=== PATIENT | male | born 1955 | race Caucasian/White ===

== ENCOUNTER → 2021-04-13 08:20 | Outpatient (BNV) | payer MEDICARE, MEDICAID, SELFPAY | PROVIDERS: PCP Internal Medicine; Visit Provider Internal Medicine | DX: E83.110 Hereditary hemochromatosis (principal) | CPT/HCPCS: 99213; 99214; G2211 ==

== ENCOUNTER 2021-09-04 13:59 | Outpatient (REF) | payer MEDICARE, SELFPAY ==
--- NOTE | ~2021-09-04 | XR_ITS ---
EXAMINATION: XR CHEST CLINICAL INFORMATION: Chronic obstructive pulmonary disease. COMPARISON: CT 11/02/2016 TECHNIQUE: 2 views of the chest were obtained. FINDINGS: Hyperexpanded lungs. Patchy opacities throughout the lungs, right greater than left. No pleural effusion or pneumothorax. The cardiomediastinal silhouette is normal in size. No acute osseous abnormality. XR/XR chest 2V IMPRESSION: Hyperexpanded lungs, consistent with known emphysema.. Patchy bilateral opacities could be infectious or inflammatory.
[2021-09-04 16:28] LABS: MANUAL DIFF FLAG NO
[2021-09-04 16:33] LABS: Basophils Percent Auto 0.4 % (0-2); Eosinophils Absolute Auto 0.2 X10*3/uL (0.0-0.4); Hematocrit 39.2 % (42.0-52.0); Hemoglobin 12.8 g/dl (14.0-18.0); Imm Gran Abs Auto 0.01 X10*3/uL (0.00-0.03); Imm Gran Pct Auto 0.2 % (0.0-0.4); Lymphocytes Absolute Auto 1.8 X10*3/uL (1.2-4.9); Lymphocytes Percent Auto 35.5 % (20-40); Mean Corpuscular HGB Conc 32.7 g/dl (31.0-36.0); Mean Corpuscular Hemoglobin 32.2 pg (27.0-33.0); Mean Corpuscular Volume 98.5 fL (80.0-98.0); Mean Platelet Volume 9.8 fL (9.4-12.4); Monocytes Absolute Auto 0.9 X10*3/uL (0.1-1.2); Monocytes Percent Auto 17.4 % (2-11); Neutrophils Absolute Auto 2.2 x10*3/uL (2.0-8.3); Neutrophils Percent Auto 43.5 % (45-73); Platelet Count 334 X10*3/uL (160-400); Red Blood Count 3.98 X10*6/uL (4.60-5.80); Red Cell Distribution Width 15.5 % (11.0-16.0)
[2021-09-04 16:47] LABS: Alanine Aminotransferase 20 U/L (0-40); Albumin Level 3.7 g/dL (3.5-5.0); Alkaline Phosphatase 109 U/L (39-117); Anion Gap 7 (12-20); Aspartate Amino Transferase 23 U/L (5-37); Bilirubin Total 0.6 mg/dL (0.0-1.0); Blood Urea Nitrogen 9 mg/dL (9-16); Calcium 9.2 mg/dL (8.4-10.2); Carbon Dioxide 29 mmol/L (22-29); Chloride 109 mmol/L (96-108); Cholesterol 146 mg/dL; Estimated Glomerular Filt Rate > 60; Glucose Random 92 mg/dL (60-115); HDL Cholesterol 39 mg/dL; LDL Cholesterol Calculated 91 mg/dl; Potassium 4.2 mmol/L (3.3-5.1); Sodium 141 mmol/L (135-145); Total Protein 6.8 g/dL (6.5-8.0); Triglycerides 83 mg/dL
[2021-09-04 17:06] LABS: Ferritin 490 ng/mL (20-250)
== END 2021-09-04 14:00 | disposition home or self-care (01) ==
LOC: HO.HMGCX 13:59
PROVIDERS: Visit Provider Internal Medicine
DX: J44.9 Chronic obstructive pulmonary disease, unspecified (principal); U09.9 Post COVID-19 condition, unspecified
CPT/HCPCS: 36415; 71046; 80053; 80061; 82728; 85025

== ENCOUNTER 2021-10-07 12:48 | Outpatient (REF) | payer MEDICARE, SELFPAY ==
--- NOTE | ~2021-10-07 | XR_ITS ---
EXAMINATION: XR CHEST CLINICAL INFORMATION: Post Covid 19 infection. Cough COMPARISON: 09/04/2021 TECHNIQUE: 2 views of the chest were obtained. FINDINGS: Slight interval increase in the patchy reticulated airspace opacities seen bilaterally and diffusely. No new or developing pulmonary mass or consolidation. Heart size is normal. No acute osseous abnormality. Degenerative changes of the spine. XR/XR chest 2V IMPRESSION: Persistent but improving reticulated and patchy airspace opacities.
== END 2021-10-07 12:49 | disposition home or self-care (01) ==
LOC: HO.XRAY 12:48
PROVIDERS: PCP Internal Medicine; Visit Provider Internal Medicine
DX: J44.9 Chronic obstructive pulmonary disease, unspecified (principal); U09.9 Post COVID-19 condition, unspecified
CPT/HCPCS: 71046; 99202

== ENCOUNTER → 2021-12-01 08:50 | Outpatient (BNVA) | payer BC, SELFPAY | PROVIDERS: PCP Internal Medicine; Visit Provider Internal Medicine | DX: J44.9 Chronic obstructive pulmonary disease, unspecified (principal) ==

== ENCOUNTER → 2022-05-26 14:29 | Outpatient (BNVA) | payer MEDICARE, MEDICAID, SELFPAY | PROVIDERS: PCP Internal Medicine; Visit Provider Internal Medicine | DX: J44.9 Chronic obstructive pulmonary disease, unspecified (principal) | CPT/HCPCS: 99212 ==

== ENCOUNTER → 2022-11-24 08:17 | Outpatient (BNVA) | payer MEDICARE, MEDICAID, SELFPAY | PROVIDERS: PCP Internal Medicine; Visit Provider Internal Medicine | DX: J44.9 Chronic obstructive pulmonary disease, unspecified (principal) | CPT/HCPCS: 94010; 99212 ==

== ENCOUNTER → 2022-12-27 08:18 | Outpatient (BNVA) | payer MEDICARE, MEDICAID, SELFPAY | PROVIDERS: PCP Internal Medicine; Visit Provider Nurse Practitioner Family | DX: N40.0 Benign prostatic hyperplasia without lower urinary tract symptoms (principal); N52.9 Male erectile dysfunction, unspecified; R39.12 Poor urinary stream | CPT/HCPCS: 51798; 99202 ==

== ENCOUNTER 2023-01-06 13:42 | Outpatient (REF) | payer MEDICARE, MEDICAID, SELFPAY | END 2023-01-06 13:43 | disposition home or self-care (01) | LOC: HO.BBR 13:42 | PROVIDERS: Visit Provider Internal Medicine | DX: Z13.89 Encounter for screening for other disorder (principal) ==

== ENCOUNTER 2023-01-31 08:44 | Outpatient (REF) | payer MEDICARE, MEDICAID, SELFPAY ==
--- NOTE | ~2023-01-31 | US_ITS ---
EXAMINATION: US RETROPERITONEAL COMPLETE (RENAL) CLINICAL INFORMATION: Benign prostatic hyperplasia without lower urinary tract symptoms. COMPARISON: US pelvis limited (bladder) 07/12/2019. Ultrasound abdomen complete 03/26/2019. TECHNIQUE: Real-time imaging of the kidneys and bladder. FINDINGS: RIGHT KIDNEY: 11.6 x 5.9 x 6.3 cm (SAG x AP x TRV). The kidney is normal in size, contour, and echogenicity. Renal cortical thickness is normal. No renal calculi or hydronephrosis. Multiple peripelvic cysts, largest measuring 1.7 cm in the midpole. No imaging follow-up recommended. LEFT KIDNEY: 12.1 x 5.0 x 5.2 cm (SAG x AP x TRV). The kidney is normal in size, contour, and echogenicity. Renal cortical thickness is normal. No renal calculi or hydronephrosis. Multiple peripelvic cysts. No imaging follow-up recommended. Fullness of the left renal pelvis versus extrarenal pelvis. BLADDER: Well distended and normal. Bilateral ureteral jets are demonstrated. Prevoid bladder volume is 447 mL. Postvoid bladder volume is 163 mL. ADDITIONAL FINDINGS: Prostate gland is normal in size measuring 4.2 x 3.3 x 2.7 cm, volume 19 mL. Central prostate gland calcifications. US/US retroperitoneal comp IMPRESSION: Bilateral peripelvic cysts. Large 163 mL post void bladder residual. Normal size prostate gland..
== END 2023-01-31 08:45 | disposition home or self-care (01) ==
LOC: HO.HMGCX 08:44
PROVIDERS: PCP Internal Medicine; Visit Provider Nurse Practitioner Family
DX: N40.0 Benign prostatic hyperplasia without lower urinary tract symptoms (principal); R39.12 Poor urinary stream; N52.9 Male erectile dysfunction, unspecified
CPT/HCPCS: 76770

== ENCOUNTER 2023-02-04 07:48 | Outpatient (REF) | payer MEDICARE, MEDICAID, SELFPAY ==
[2023-02-04 14:40] LABS: Prostate Specific Antigen 0.14 ng/mL (<0.05-4.0)
== END 2023-02-04 07:49 | disposition home or self-care (01) ==
LOC: HO.HMGCLDS 07:48
PROVIDERS: PCP Internal Medicine; Visit Provider Nurse Practitioner Family
DX: Z12.5 Encounter for screening for malignant neoplasm of prostate (principal); N40.0 Benign prostatic hyperplasia without lower urinary tract symptoms
CPT/HCPCS: 36415; 84153

== ENCOUNTER 2023-02-07 08:01 | Outpatient (AMB) | payer MEDICARE, MEDICAID, SELFPAY ==
--- NOTE | 2023-02-07 08:10 | A.OFFVIS_ITS ---
Intake Intake Visit Reasons: BPH- follow up/US/PSA Intake Note: Patient presents for follow up BPH/labs/ultrasound (imaging 01/31) (psa 0.14) Urology Medications: d/c tamsulosin, finasteride, tadalafil Blood Thinner: none PVR: 44ml's Lead Programmer Analyst Required: No Accompanied by: Self / Same As Patient Allergies DRYER SHEETS Allergy (Intermediate, Uncoded 02/07/23 08:52) HIVES Medication List - Last Reconciled 02/07/23 by NI Childers-BRITANY albuterol sulfate 90 mcg/actuation (ProAir HFA) 1 inh inhalation QID PRN 30 days budesonide-formoterol 160-4.5 mcg/actuation 1 inh inhalation BID cholecalciferol (vitamin D3) 50 mcg PO DAILY finasteride 5 mg PO .MWF 90 days ipratropium bromide 17 mcg/actuation 1 puff inhalation QID magnesium oxide 400 mg PO DAILY Symbicort 160-4.5 mcg/actuation (budesonide-formoterol) 2 puffs inhalation BID 30 days NS tadalafil (Cialis) 5 mg PO DAILY 90 days HPI HPI Comments History of Present Illness Details Erick Fields is a very pleasant 68-year-old male patient of Dr. Sue. He has a PMH of COPD and hemochromatosis.He presents to the office today for follow-up. Of note, patient was seen approximately 6 weeks ago as a new patient for ongoing urological issues at which time a retroperitoneal ultrasound was ordered, PSA, and the patient was started on Cialis 5 mg daily. Patient previously on Flomax 0.4 mg daily however did not find this affective for his urinary issues thus Cialis 5mg daily was trialed. Recent retroperitoneal ultrasound results reviewed with the patient today. Right kidney with no calculi or hydronephrosis. Multiple peripelvic cysts largest measuring 1.7 cm in the mid pole. No imaging follow-up is recommended per radiology report. Left kidney with no calculi or hydronephrosis. Multiple peripelvic cysts. No imaging follow-up is recommended per radiology report. The bladder is well distended and normal. Pre void bladder volume is approximately 450 mL. Postvoid bladder volume is approximately 160 mL. Prostate volume is approximately 20 mL. PSA 02/06--0.1. When asked patient reports somewhat improvement in urinary symptoms on 5 mg of Cialis daily. However he does continue to report weak urinary stream. He otherwise denies denies urinary urgency, urinary frequency, incontinence, nocturia, hematuria, dysuria, foul smelling urine, flank pain, fever, and or chills. In office urinalysis results reviewed with the patient today. PVR 44 mL. Discussed at length importance of adequate sleep, daily exercise (brisk walking), and healthy eating habits to improve erectile dysfunction symptoms as well as for overall health and well-being. Discussed possible near future in office cystoscopy if symptoms persist and/or worsen. Patient otherwise offers no issues or concerns at this time. [facility] Medical History Hereditary hemochromatosis Surgical History No pertinent past surgical history Social History Household Members: Significant Other Housing: Other (mobile home) Housing Other:: trailor Are you a primary child day care teacher to a significant other at home: No Alcohol intake: never Patient Tobacco Use Status: Former Tobacco user Tobacco use type: Cigarette e-Cigarette/Vaping Use: Never Used service: No Current occupational status: retired Cognitive needs: No Hearing needs: Yes Vision needs: Yes Review of Systems Const Other Reports as per HPI Eyes Reports no additional complaints ENT Reports no additional complaints Card Reports no additional complaints Resp Reports as per HPI GI Reports no additional complaints Reports as per HPI Musc Reports no additional complaints Neuro Reports no additional complaints Psych Reports no additional complaints Endo Reports no additional complaints Kirit/Lymph Reports as per HPI Aller/Immun Reports no additional complaints Physical Exam Const General: cooperative, healthy appearing, comfortable, no acute distress, well developed, alert and awake Orientation/consciousness: patient oriented x3 Limitations: no limitations HEENT Head: Yes normal to inspection, Yes normocephalic and Yes atraumatic Ears: hearing grossly normal bilaterally (bilateral hearing aids present ) Eyes General: appearance normal, both eyes and all related structures Neck Neck: Yes normal visual inspection and Yes trachea midline Chest Chest palpation & inspection: normal inspection of the chest Resp Effort & Inspection: normal respiratory effort and able to speak in complete sentences Cardio Rate: regular rate GI Inspection: Yes normal to inspection General: Yes no CVA tenderness Back/Spine/Pelvis Back: no CVA tenderness Skin General skin exam: no rashes or lesions noted Neuro General: patient oriented x3 Extrem General: Yes normal to inspection Psych Appearance: grossly normal and well kempt Mental Status: mental status grossly normal Speech and movement: Normal speech and movement present and Clear speech present Affect: normal affect Attitude: cooperative Thought process: Normal thought process present Thought content: Normal thought content present Insight: Fair insight present (Psych) Judgement: Fair judgement present (Psych) Office Procedures Post Void Residual Post Residual Void Post Void Residual (PVR): 44 [id number] Void Residual by ultrasound Results AMB Urinalysis, Automated UA Leukoctes 0 Chente/uL Last Edit by Bebe Lopezbro on 02/07/23 08:20 UA Nitrite Last Edit by [employer] Lopezbro on 02/07/23 08:20 UA Urobilinogen 0.2 mg/dL Last Edit by [employer] Jessicabro on 02/07/23 08:20 UA Protein 0 mg/dL Last Edit by [employer] Lopez on 02/07/23 08:20 UA pH 6.0 Last Edit by [employer] Jessicabro on 02/07/23 08:20 UA Blood 0 Porter/uL Last Edit by [employer] Jessicabro on 02/07/23 08:[address] [place] [address] 1.020 Last Edit by [employer] Jess[employer]abro on 02/07/23 08:20 UA Ketone Last Edit by [employer] Jessica on 02/07/23 08:20 UA Bilirubin 0 mg/dL Last Edit by [employer] Lopezbro on 02/07/23 08:20 UA Glucose 0 mg/dL Last Edit by [employer] on 02/07/23 08:20 Results Reviewed Results Reviewed: Laboratory Last Values Urine pH (Auto) 6.0 02/07/23 08:[address] [place] (Auto) 1.020 02/07/23 08:13 Urine Protein (Auto) 0 mg/dL 02/07/23 08:13 Glucose (UA)(Auto) 0 mg/dL 02/07/23 08:13 Urine Blood (Auto) 0 Porter/uL 02/07/23 08:13 Urine Bilirubin (Auto) 0 mg/dL 02/07/23 08:13 Urine Urobilinogen (Auto) 0.2 mg/dL 02/07/23 08:13 Leukocyte Esterase (Auto) 0 Chente/uL 02/07/23 08:13 Date of Service: 01/31/23 EXAMINATION: US RETROPERITONEAL COMPLETE (RENAL) FINDINGS: RIGHT KIDNEY: 11.6 x 5.9 x 6.3 cm (SAG x AP x TRV). The kidney is normal in size, contour, and echogenicity. Renal cortical thickness is normal. No renal calculi or hydronephrosis. Multiple peripelvic cysts, largest measuring 1.7 cm in the midpole. No imaging follow-up recommended. LEFT KIDNEY: 12.1 x 5.0 x 5.2 cm (SAG x AP x TRV). The kidney is normal in size, contour, and echogenicity. Renal cortical thickness is normal. No renal calculi or hydronephrosis. Multiple peripelvic cysts. No imaging follow-up recommended. Fullness of the left renal pelvis versus extrarenal pelvis. BLADDER: Well distended and normal. Bilateral ureteral jets are demonstrated. Prevoid bladder volume is 447 mL. Postvoid bladder volume is 163 mL. ADDITIONAL FINDINGS: Prostate gland is normal in size measuring 4.2 x 3.3 x 2.7 cm, volume 19 mL. Central prostate gland calcifications. IMPRESSION: Bilateral peripelvic cysts. Large 163 mL post void bladder residual. Normal size prostate gland.. Assessment & Plan Assessment & Plan (1) Erectile dysfunction: Code(s): N52.9 - Male erectile dysfunction, unspecified (2) Weak urinary stream: Code(s): R39.12 - Poor urinary stream (3) Parapelvic renal cyst: Code(s): N28.1 - Cyst of kidney, acquired Plan In office urinalysis results reviewed with the patient today; as noted above. PVR 44ml's. Recent PSA results reviewed with the patient today; as noted above. Recent retroperitoneal ultrasound results reviewed with the patient today; as noted above. Continue Cialis 5 mg daily as patient reports somewhat improvement in urinary symptoms on this medication. Continue finasteride Tuesday as discussed and prescribed. Discussed near future in office cystoscopy for further assessment evaluation Follow-up in 3 months; if not sooner with any issues, concerns, and or questions. Orders: Orders AMB Urinalysis Automated Today Z13.9 - Encounter for screening, unspecified AMB Post Void Residual by ultrasound Today R39.12 - Poor urinary stream Patient Instructions: The patient had an opportunity to ask questions regarding the treatment plan. All questions were answered. Physical exam, labs, and imaging were discussed and reviewed in detail. As well as risks, benefits, and discussion of treatment choices. No major barriers to understanding were identified. The patient expressed understanding and agreement with the above treatment plan. The patient was made aware they should contact our office by phone for worsening of their current condition, the appearance of new symptoms, or with any questions or concerns. Compliance is encouraged with any medications and follow up testing that is ordered. It is a privilege to be allowed the opportunity to participate in? your urological care.? Again, if you have any questions or concerns If you have any questions or concerns please do not hesitate to contact me. The office is [phone]. This note is constructed using voice recognition software. While every effort has been made to ensure accuracy pastoral ministries professor errors may have been included. Yours sincerely, RENATE Childers Coding Level of Care Code Est Pt Level 3 (78110) Diagnoses Erectile dysfunction N52.9 Weak urinary stream R39.12 Parapelvic renal cyst N28.1 CPT Codes Post Residual Void - PVR CPT Code: 44827-Kpgj Void Residual by ultrasound ([id number])
== END 2023-02-07 09:13 | disposition home or self-care (01) ==
PROVIDERS: PCP Internal Medicine; Visit Provider Nurse Practitioner Family
DX: N52.9 Male erectile dysfunction, unspecified (principal); R39.12 Poor urinary stream; N28.1 Cyst of kidney, acquired
CPT/HCPCS: 99213

== ENCOUNTER → 2023-02-07 08:01 | Outpatient (BNVA) | payer MEDICARE, MEDICAID, SELFPAY | PROVIDERS: PCP Internal Medicine; Visit Provider Nurse Practitioner Family | DX: N52.9 Male erectile dysfunction, unspecified (principal); N28.1 Cyst of kidney, acquired; R39.12 Poor urinary stream | CPT/HCPCS: 51798; 99212 ==

== ENCOUNTER 2023-02-22 14:31 | Outpatient (AMB) | payer MEDICARE, MEDICAID, SELFPAY ==
[2023-02-22 14:34] VITALS: BP 130/74; PULSE 63; O2SAT 96; BMI 24.3
--- NOTE | 2023-02-22 14:34 | MHC.PC.OV ---
Vital Signs 02/22/23 14:34 Height 5 ft 11 in Weight 174 lb 2 oz BMI 24.3 BP 130/74 Blood Pressure Location Rt brachial Position Sitting Pulse 63 Pulse Source Pulse Oximeter Pulse Oximetry (%) 96 Oxygen Delivery Method Room Air Intake Visit Reasons: follow up on medical issues Allergies DRYER SHEETS Allergy (Intermediate, Uncoded 02/07/23 08:52) HIVES Medication List - Last Reconciled 02/22/23 by Mikael Sue MD albuterol sulfate 90 mcg/actuation (ProAir HFA) 1 inh inhalation QID PRN 30 days budesonide-formoterol 160-4.5 mcg/actuation 1 inh inhalation BID cholecalciferol (vitamin D3) 50 mcg PO DAILY finasteride 5 mg PO .MWF 90 days ipratropium bromide 17 mcg/actuation 1 puff inhalation QID magnesium oxide 400 mg PO DAILY naproxen 500 mg PO BID PRN 30 days Symbicort 160-4.5 mcg/actuation (budesonide-formoterol) 2 puffs inhalation BID 30 days NS tadalafil (Cialis) 5 mg PO DAILY 90 days Tobacco use date assessed: 02/22/23 Fall risk assessment: No Falls in past year Last assessed Fall Risk: 02/22/23 Dental Screening Dental Screen Date: 02/22/23 Did you have a dental visit in the last 12 months?: No Did you have a dental problem in the last 6 months where you did not have access to dental care?: No Was dental information given to patient?: No HPI follow up on medical issues HPI Details Patient is a 68-year-old gentlemen who is taking no medication from this office came in today for an acute problem Complaining of pain left hip for the past 1 month, patient says that usually when he takes ibuprofen his pain goes away but lately it has not been getting better. On examination he has slight limitation in left hip range of motion. I have ordered x-ray of his left hip And sent Aleve 500 mg b.i.d. with food as needed. Patient is to update me in a week if he is still in pain he will be seeing mobile marketing specialist. Medication list reviewed patient is seen urologist and Dr. Wilder [facility] Medical History Hereditary hemochromatosis Surgical History No pertinent past surgical history Social History Household Members: Significant Other Housing: Other (mobile home) Housing Other:: trailor Are you a primary administrator health care facility to a significant other at home: No Alcohol intake: never Patient Tobacco Use Status: Former Tobacco user Tobacco use type: Cigarette e-Cigarette/Vaping Use: Never Used service: No Current occupational status: retired Cognitive needs: No Hearing needs: Yes Vision needs: Yes Questionnaire PHQ-9 Over the last 2 weeks, how often have you been bothered by any of the following problems? 67004 - PHQ-9 Billing: Patient declined-do not bill Source: Developed by Drs. Ck Martinez, Juju Murray, Juancho Guzman and colleagues, with an educational yenny from [employer]. Thrive Questionnaire Date Thrive assessed: 03/13/21 AUDIT C Alcohol Use Questionnaire (AUDIT-C) 1. How often do you have a drink containing alcohol?: Never 3. How often do you have six or more drinks on one occasion?: Never Total Score: 0 Score Reviewed/Action Taken: Yes Review of Systems Const Denies chills and Denies fever(s) ENT Denies epistaxis and Denies nasal discharge Card Denies chest pain Resp Denies chest congestion, Denies cough and Denies hemoptysis GI Denies diarrhea and Denies nausea Skin/Breast Denies rash Neuro Reports no additional complaints Psych Reports no additional complaints Endo Reports no additional complaints Physical exam (Primary Care) Vital Signs: Last Vital Signs Pulse 63 02/22/23 14:34 BP 130/74 02/22/23 14:34 Pulse Ox 96 02/22/23 14:34 Oxygen Delivery Method Room Air 02/22/23 14:34 BMI result Body Mass Index 24.3 Tobacco/Smoking Status: Tobacco use Status Tobacco use date assessed 02/22/23 02/22/23 14:37 Patient Tobacco Use Status Former Tobacco user 02/22/23 14:37 Tobacco use type Cigarette 02/22/23 14:37 e-Cigarette/Vaping Use Never Used 02/22/23 14:37 Thrive Assessment: Date of Thrive Assessment Date Thrive assessed 03/13/21 02/22/23 14:37 Const General: cooperative, comfortable and no acute distress Orientation/consciousness: patient oriented x3 HENMT Head: Yes normocephalic Eyes General: appearance normal, both eyes and all related structures Neck Neck: Yes supple Resp Effort & Inspection: normal respiratory effort, no cough and no stridor Cardio Rhythm: regular rhythm Heart sounds: S1 normal heart sound present and S2 normal heart sound present Skin General skin exam: turgor normal Neuro General: patient oriented x3, tone normal and moves all extremities Extrem Other: Slight limitation range of motion left hip because of pain Right lower extremity: no edema Left lower extremity: no edema Assessment and Plan Assessment & Plan (1) Hip pain, left: Code(s): M25.552 - Pain in left hip Plan Patient is a 68-year-old gentlemen who is taking no medication from this office came in today for an acute problem Complaining of pain left hip for the past 1 month, patient says that usually when he takes ibuprofen his pain goes away but lately it has not been getting better. On examination he has slight limitation in left hip range of motion. I have ordered x-ray of his left hip And sent Aleve 500 mg b.i.d. with food as needed. Patient is to update me in a week if he is still in pain he will be seeing mobile marketing specialist. Medication list reviewed patient is seen urologist and Dr. Wilder Orders: Orders XR hip LT min 2V Today M25.552 - Pain in left hip Medications: New naproxen Take it with food 12 hours apart as needed for hip pain 500 mg PO BID PRN 60 tabs 0RF pain 30 days Coding Level of Care Code Est Pt Level 3 (55711) Diagnoses Hip pain, left M25.552
== END 2023-02-22 15:13 | disposition home or self-care (01) ==
PROVIDERS: PCP Internal Medicine; Visit Provider Internal Medicine
DX: M25.552 Pain in left hip (principal)
CPT/HCPCS: 99213

== ENCOUNTER 2023-02-22 15:04 | Outpatient (REF) | payer MEDICARE, MEDICAID, SELFPAY ==
--- NOTE | ~2023-02-22 | XR_ITS ---
EXAMINATION: XR HIP, LEFT CLINICAL INFORMATION: Pain left hip COMPARISON: None available. TECHNIQUE: Two views of the left hip. FINDINGS: Minimal loss of left hip joint space is seen with no bony erosive changes, loose bodies are osteophytes. The soft tissues are normal. XR/XR hip LT min 2V IMPRESSION: Unremarkable left hip exam.
== END 2023-02-22 15:05 | disposition home or self-care (01) ==
LOC: HO.HMGCX 15:04
PROVIDERS: PCP Internal Medicine; Visit Provider Internal Medicine
DX: M25.552 Pain in left hip (principal)
CPT/HCPCS: 73502

== ENCOUNTER 2023-03-08 07:59 | Outpatient (REF) | payer MEDICARE, MEDICAID, SELFPAY | END 2023-03-08 08:00 | disposition home or self-care (01) | LOC: HO.BBR 07:59 | PROVIDERS: PCP Internal Medicine; Visit Provider Internal Medicine | DX: Z13.89 Encounter for screening for other disorder (principal) ==

== ENCOUNTER 2023-05-03 08:11 | Outpatient (AMB) | payer MEDICARE, MEDICAID, SELFPAY ==
--- NOTE | 2023-05-03 08:13 | A.OFFVIS_ITS ---
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 Required: No Accompanied by: Self / Same As Patient Allergies DRYER SHEETS Allergy (Intermediate, Uncoded 05/03/23 09:05) HIVES Medication List - Last Reconciled 05/03/23 by INEZ ChildersP- albuterol sulfate 90 mcg/actuation (ProAir HFA) 1 inh inhalation QID PRN 30 days alfuzosin ER 10 mg PO BEDTIME 30 days budesonide-formoterol 160-4.5 mcg/actuation 1 inh inhalation BID cholecalciferol (vitamin D3) 50 mcg PO DAILY finasteride 5 mg PO .MWF 90 days ipratropium bromide 17 mcg/actuation 1 puff inhalation QID magnesium oxide 400 mg PO DAILY naproxen 500 mg PO BID PRN 30 days Symbicort 160-4.5 mcg/actuation (budesonide-formoterol) 2 puffs inhalation BID 30 days NS HPI HPI Comments History of Present Illness Details Erick Fields is a very pleasant 68-year-old male patient of Dr. Sue. He has a PMH of COPD and hemochromatosis.He presents to the office today for follow-up. Of note, patient was seen approximately 3 months ago weeks ago as a new patient for ongoing urological issues at which time a retroperitoneal ultrasound was ordered, PSA, and the patient was started on Cat which time his flomax was discontinued and the patient was started on low dose Cialis 5 mg daily. In discussion with the patient today he reports to be doing and feeling well. He reports feeling well via a Urology standpoint just feels he continues with weak urianry stream. He also reports retrograde ejaculation. He otherwise denies urinary urgency, urinary frequency, incontinence, nocturia, hematuria, dysuria, foul smelling urine, changes to urinary stream, flank pain, fever, and or chills. Previous workup has included a retroperitoneal ultrasound noting right kidney with no calculi or hydronephrosis. Multiple peripelvic cysts largest measuring 1.7 cm in the mid pole. No imaging follow-up is recommended per radiology report. Left kidney with no calculi or hydronephrosis. Multiple peripelvic cysts. No imaging follow-up is recommended per radiology report. The bladder is well distended and normal. Pre void bladder volume is approximately 450 mL. Postvoid bladder volume is approximately 160 mL. Prostate volume is approximately 20 mL. PSA 02/06--0.1. In office urinalysis results reviewed with the patient today. PVR 40 mL. Discussed trial if Alfuzosin. Discussed possible near future in office cystoscopy if symptoms persist and/or worsen. Patient otherwise offers no issues or concerns at this time. [facility] Medical History Hereditary hemochromatosis Surgical History No pertinent past surgical history Social History Household Members: Significant Other Housing: Other (mobile home) Housing Other:: trailor Are you a primary respiratory care specialist to a significant other at home: No Alcohol intake: never Patient Tobacco Use Status: Former Tobacco user Tobacco use type: Cigarette e-Cigarette/Vaping Use: Never Used service: No Current occupational status: retired Cognitive needs: No Hearing needs: Yes Vision needs: Yes Review of Systems Const Other Reports as per HPI Eyes Reports no additional complaints ENT Reports no additional complaints Card Reports no additional complaints Resp Reports as per HPI GI Reports no additional complaints Reports as per HPI Musc Reports no additional complaints Neuro Reports no additional complaints Psych Reports no additional complaints Endo Reports no additional complaints Kirit/Lymph Reports as per HPI Aller/Immun Reports no additional complaints Physical Exam Const General: cooperative, healthy appearing, comfortable, no acute distress, well developed, alert and awake Orientation/consciousness: patient oriented x3 Limitations: no limitations HEENT Head: Yes normal to inspection, Yes normocephalic and Yes atraumatic Ears: hearing grossly normal bilaterally (bilateral hearing aids present ) Eyes General: appearance normal, both eyes and all related structures Neck Neck: Yes normal visual inspection and Yes trachea midline Chest Chest palpation & inspection: normal inspection of the chest Resp Effort & Inspection: normal respiratory effort and able to speak in complete sentences Cardio Rate: regular rate GI Inspection: Yes normal to inspection General: Yes no CVA tenderness Back/Spine/Pelvis Back: no CVA tenderness Skin General skin exam: no rashes or lesions noted Neuro General: patient oriented x3 Extrem General: Yes normal to inspection Psych Appearance: grossly normal and well kempt Mental Status: mental status grossly normal Speech and movement: Normal speech and movement present and Clear speech present Affect: normal affect Attitude: cooperative Thought process: Normal thought process present Thought content: Normal thought content present Insight: Fair insight present (Psych) Judgement: Fair judgement present (Psych) Office Procedures Post Void Residual Post Residual Void Post Void Residual (PVR): 40 86075-Whbr Void Residual by ultrasound Results AMB Urinalysis, Automated UA Leukoctes 0 Chente/uL Last Edit by Pocket Change on 05/03/23 08:42 UA Nitrite Negative Last Edit by Pocket Change on 05/03/23 08:42 UA Urobilinogen 0.2 mg/dL Last Edit by Pocket Change on 05/03/23 08:42 UA Protein 0 mg/dL Last Edit by Pocket Change on 05/03/23 08:42 UA pH 6.0 Last Edit by Pocket Change on 05/03/23 08:42 UA Blood 0 Porter/uL Last Edit by Pocket Change on 05/03/23 08:42 UA Specific [place] 1.010 Last Edit by Pocket Change on 05/03/23 08:42 UA Ketone Negative Last Edit by Pocket Change on 05/03/23 08:42 UA Bilirubin 0 mg/dL Last Edit by Pocket Change on 05/03/23 08:42 UA Glucose 0 mg/dL Last Edit by Pocket Change on 05/03/23 08:42 Results Reviewed Results Reviewed: Laboratory Last Values Urine pH (Auto) 6.0 05/03/23 08:27 Specific [place] (Auto) 1.010 05/03/23 08:27 Urine Protein (Auto) 0 mg/dL 05/03/23 08:27 Glucose (UA)(Auto) 0 mg/dL 05/03/23 08:27 Urine Ketones (Auto) Negative 05/03/23 08:27 Urine Blood (Auto) 0 Porter/uL 05/03/23 08:27 Urine Nitrite (Auto) Negative 05/03/23 08:27 Urine Bilirubin (Auto) 0 mg/dL 05/03/23 08:27 Urine Urobilinogen (Auto) 0.2 mg/dL 05/03/23 08:27 Leukocyte Esterase (Auto) 0 Chente/uL 05/03/23 08:27 Assessment & Plan Assessment & Plan (1) Weak urinary stream: Code(s): R39.12 - Poor urinary stream (2) Retrograde ejaculation: Code(s): N53.14 - Retrograde ejaculation Plan In office urinalysis results reviewed with the patient today; as noted above. PVR 40 mL. Stop Cialis Start alfuzosin 10 mg daily as discussed and prescribed. Patient reporting weak urinary stream and retrograde ejaculation Discussed discontinuation of finasteride given low PSA and retroperitoneal ultrasound showing approximately 20 mL prostate volume; however patient wishes to continue with finasteride Tuesday Discussed possible near future in office cystoscopy if symptoms persist Follow up in 6-8 weeks with PVR; or sooner with any issues, concerns, and or questions. Orders: Orders AMB Urinalysis Automated Today Z13.9 - Encounter for screening, unspecified AMB Post Void Residual by ultrasound Today R39.12 - Poor urinary stream Medications: New alfuzosin ER Take before bedtime 10 mg PO BEDTIME 30 days 30 tabs 1RF N32.0 - Bladder- neck obstruction, N40.1 - Benign prostatic hyperplasia with lower urinary tract symptoms, R33.9 - Retention of urine, unspecified, R35.1 - Nocturia, R39.12 - Poor urinary stream Discontinued tadalafil (Cialis) [facility] [address] [id number] Discontinued Reason: Doctor's Order 5 mg PO DAILY 90 days 90 tabs 0RF Coding Level of Care Code Est Pt Level 4 (71963) Diagnoses Weak urinary stream R39.12 Retrograde ejaculation N53.14 CPT Codes Post Residual Void - PVR CPT Code: 61193-Dsfb Void Residual by ultrasound ([id number])
== END 2023-05-03 09:04 | disposition home or self-care (01) ==
PROVIDERS: PCP Internal Medicine; Visit Provider Nurse Practitioner Family
DX: R39.12 Poor urinary stream (principal); N53.14 Retrograde ejaculation; Z13.9 Encounter for screening, unspecified
CPT/HCPCS: 99214

== ENCOUNTER → 2023-05-03 08:11 | Outpatient (BNVA) | payer MEDICARE, MEDICAID, SELFPAY | PROVIDERS: PCP Internal Medicine; Visit Provider Nurse Practitioner Family | DX: R39.12 Poor urinary stream (principal); N53.14 Retrograde ejaculation | CPT/HCPCS: 51798; 81003; 99212 ==

== ENCOUNTER 2023-05-10 07:40 | Outpatient (REF) | payer MEDICARE, MEDICAID, SELFPAY | END 2023-05-10 07:41 | disposition home or self-care (01) | LOC: HO.BBR 07:40 | PROVIDERS: PCP Internal Medicine; Visit Provider Internal Medicine | DX: Z13.89 Encounter for screening for other disorder (principal) ==

== ENCOUNTER 2023-06-06 08:44 | Outpatient (AMB) | payer MEDICARE, MEDICAID, SELFPAY ==
--- NOTE | 2023-06-06 09:06 | A.OFFVIS_ITS ---
Intake Vital Signs 06/06/23 09:07 Height 5 ft 11 in Weight 176 lb BMI 24.5 BP 120/60 Blood Pressure Location Lt brachial Position Sitting Pulse 63 Pulse Source Pulse Oximeter Pulse Oximetry (%) 100 Oxygen Delivery Method Room Air Intake Visit Reasons: COPD Intake Note: pt is here for follow up and states his breathing is okay but only flare up with some mornings with some phelgm., He does breath hard, does this hurt him? 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 Required: No Allergies DRYER SHEETS Allergy (Intermediate, Uncoded 06/06/23 09:18) HIVES Medication List - Last Reconciled 06/06/23 by Kyle Wilder MD albuterol sulfate 90 mcg/actuation (ProAir HFA) 1 inh inhalation QID PRN 30 days alfuzosin ER 10 mg PO BEDTIME 30 days budesonide-formoterol 160-4.5 mcg/actuation 1 inh inhalation BID cholecalciferol (vitamin D3) 50 mcg PO DAILY finasteride 5 mg PO .MWF 90 days magnesium oxide 400 mg PO DAILY naproxen 500 mg PO BID PRN 30 days Do you need a note to return to daycare/school/sports/work: No HPI COPD HPI Details 68 YEARS OLD GENTLEMAN A RETIRED BUT REM AINS PHYSICALLY ACTIVE, COMES FOR 6 MONTHS FOLLOW-UP. BREATHING HAS BEEN VERY STABLE EXCEPT FOR INTERMITTENT BOUTS OF COUGH IN THE MORNING HOURS, USUALLY IF HE HAS MISSED USING HIS INHALER THE NIGHT BEFORE. HE HAS HAD NO ACUTE EXACERBATIONS. HE CAN WALK AROUND AND EVEN CLIMB MOUNTAINS WITHOUT ANY UNUSUAL SHORTNESS OF BREATH. [facility] Medical History Hereditary hemochromatosis Surgical History No pertinent past surgical history Social History Household Members: Significant Other Housing: Other (mobile home) Housing Other:: trailor Are you a primary client care manager to a significant other at home: No Alcohol intake: never Patient Tobacco Use Status: Former Tobacco user Tobacco use type: Cigarette e-Cigarette/Vaping Use: Never Used service: No Current occupational status: retired Cognitive needs: No Hearing needs: Yes Vision needs: Yes Review of Systems Const All systems reviewed & are unremarkable except as noted in HPI and below Eyes Reports no additional complaints ENT Reports no additional complaints Card Denies chest pain, Denies irregular heart rhythm and Denies leg edema Resp Reports as per HPI GI Reports no additional complaints Reports other (Being treated for BPH) Musc Reports no additional complaints Skin/Breast Reports system reviewed and no additional complaints, except as documented Neuro Reports no additional complaints Psych Reports no additional complaints Physical Exam Vital Signs: Last Vital Signs Pulse 63 06/06/23 09:07 BP 120/60 06/06/23 09:07 Pulse Ox 100 06/06/23 09:07 Oxygen Delivery Method Room Air 06/06/23 09:07 BMI result Body Mass Index 24.5 Const General: healthy appearing (He is of a thin build, but looks physically active.), comfortable, no acute distress, alert and awake Orientation/consciousness: patient oriented x3 HEENT Head: Yes normal to inspection General nose exam: No nasal polyps present and No nasal discharge present Face and sinus: Yes sinuses nontender Mouth: oropharynx normal Throat: Yes posterior oropharynx normal Eyes General: appearance normal, both eyes and all related structures Neck Neck: Yes normal visual inspection, Yes no lymphadenopathy, Yes trachea midline and Yes JVD (Prominent right jugular vein when he is talking) Thyroid: Thyroid normal Chest Chest palpation & inspection: normal inspection of the chest, normal palpation of entire chest wall and no tenderness Resp Other: Percussion note hyper-resonant,. Breath sounds are distant on both sides with prolonged expiratory phase. No definite wheezes or crepitations heard. Cardio Palpation: normal PMI Rate: regular rate Rhythm: regular rhythm Heart sounds: no gallops and no murmurs Peripheral pulses: Peripheral pulses 2+ throughout GI Palpation (GI): Soft to palpation, nontender, No hepatosplenomegaly present and no masses Auscultation: normal bowel sounds Back/Spine/Pelvis Thoracic/Lumbar Spine: thoracic and lumbar spine normal to inspection Skin General skin exam: no rashes or lesions noted Neuro General: patient oriented x3 and no focal motor deficits Cranial nerves: Yes CN's II-XII intact bilaterally Extrem General: Yes normal to inspection, Yes no clubbing, cyanosis or edema and Yes no calf tenderness Psych Appearance: grossly normal and well kempt Speech and movement: Normal speech and movement present Assessment & Plan Assessment & Plan (1) COPD, severe: Comment: Chronic obstructive pulmonary disease, remains well controlled with his current regimen. He is very careful and has not gotten any respiratory infection in the past 1 year. MEDS : Continue Symbicort 160-4.52 puffs b.i.d. Continue ATROVENT HFA 1 INH QID ( CHANGED PER INSURANCE COVERAGE ) Albuterol HFA 2 puffs Q 6 hours only p.r.n. Code(s): J44.9 - Chronic obstructive pulmonary disease, unspecified (2) Hemochromatosis: Comment: HEREDITARY. HE DONATES BLOOD PERIODICALLY. Code(s): E83.119 - Hemochromatosis, unspecified Coding Level of Care Code Est Pt Level 3 (27684) Diagnoses COPD, severe J44.9 Hemochromatosis E83.119
[2023-06-06 09:07] VITALS: BP 120/60; PULSE 63; O2SAT 100; BMI 24.5
== END 2023-06-06 09:34 | disposition home or self-care (01) ==
PROVIDERS: PCP Internal Medicine; Visit Provider Internal Medicine
DX: J44.9 Chronic obstructive pulmonary disease, unspecified (principal); E83.119 Hemochromatosis, unspecified
CPT/HCPCS: 99213

== ENCOUNTER → 2023-06-06 08:44 | Outpatient (BNVA) | payer MEDICARE, MEDICAID, SELFPAY | PROVIDERS: PCP Internal Medicine; Visit Provider Internal Medicine | DX: J44.9 Chronic obstructive pulmonary disease, unspecified (principal); E83.119 Hemochromatosis, unspecified | CPT/HCPCS: 99212 ==

== ENCOUNTER 2023-07-12 07:58 | Outpatient (REF) | payer MEDICARE, MEDICAID, SELFPAY | END 2023-07-12 07:59 | disposition home or self-care (01) | LOC: HO.BBR 07:58 | PROVIDERS: PCP Internal Medicine; Visit Provider Internal Medicine | DX: Z13.89 Encounter for screening for other disorder (principal) ==

== ENCOUNTER 2023-08-01 08:34 | Outpatient (AMB) | payer MEDICARE, MEDICAID, SELFPAY ==
--- NOTE | 2023-08-01 08:49 | A.OFFVIS_ITS ---
Intake Intake Visit Reasons: 6w/PVR Intake Note: Patient is Present for Follow Up PVR Urology Medication: Alfuzosin, Finasteride Antibiotic Allergies:none Blood Thinners: None PVR: 63 ml Patient states he did start Alfuzosin but does not feel any improvement on medication Allergies DRYER SHEETS Allergy (Intermediate, Uncoded 08/01/23 09:10) HIVES Medication List - Last Reconciled 08/01/23 by NI Childers- albuterol sulfate 90 mcg/actuation (ProAir HFA) 1 inh inhalation QID PRN 30 days alfuzosin ER 10 mg PO BEDTIME 30 days budesonide-formoterol 160-4.5 mcg/actuation 1 inh inhalation BID cholecalciferol (vitamin D3) 50 mcg PO DAILY finasteride 5 mg PO .MWF 90 days magnesium oxide 400 mg PO DAILY naproxen 500 mg PO BID PRN 30 days HPI HPI Comments 2 History of Present Illness Details Erick Fields is a very pleasant 68-year-old male patient of Dr. Sue. He has a PMH of COPD and hemochromatosis. He presents to the office today for follow-up. Of note, patient was seen approximately 3 months ago weeks ago at which time Cialis 5 mg daily was discontinued and the patient was trialed on 10 mg of alfuzosin. In discussion with the patient today he reports no improvement in weak urinary stream. Patient has previously trialed Flomax in did not find this helpful either. Discuss trial of terazosin 5 mg. Discussed potential for retrograde ejaculation as patient noted this while on Flomax therefore trial of alfuzosin was initiated however he has had no benefit. Previous workup has included a retroperitoneal ultrasound noting right kidney with no calculi or hydronephrosis. Multiple peripelvic cysts largest measuring 1.7 cm in the mid pole. No imaging follow-up is recommended per radiology report. Left kidney with no calculi or hydronephrosis. Multiple peripelvic cysts. No imaging follow-up is recommended per radiology report. The bladder is well distended and normal. Pre void bladder volume is approximately 450 mL. Postvoid bladder volume is approximately 160 mL. Prostate volume is approximately 20 mL. PSA 02/06--0.1. He reports compliance with finasteride Tuesday. In office urinalysis results reviewed with the patient today. PVR 63 mL. Discussed possible near future in office cystoscopy if symptoms persist and/or worsen. He otherwise denies urinary urgency, urinary frequency, incontinence, nocturia, hematuria, dysuria, foul smelling urine, flank pain, fever, and or chills. He does report erectile dysfunction at times however does not find this bothersome as he has not sexually active. He otherwise offers no other issues or concerns at this time. [facility] Medical History Hereditary hemochromatosis Surgical History No pertinent past surgical history Social History Household Members: Significant Other Housing: Other (mobile home) Housing Other:: trailor Are you a primary care director rn to a significant other at home: No Alcohol intake: never Patient Tobacco Use Status: Former Tobacco user Tobacco use type: Cigarette e-Cigarette/Vaping Use: Never Used service: No Current occupational status: retired Cognitive needs: No Hearing needs: Yes Vision needs: Yes Review of Systems Const All systems reviewed & are unremarkable except as noted in HPI and below Eyes Reports no additional complaints ENT Reports no additional complaints Card Denies chest pain, Denies irregular heart rhythm and Denies leg edema Resp Reports as per HPI GI Reports no additional complaints Reports other (Being treated for BPH) Musc Reports no additional complaints Skin/Breast Reports system reviewed and no additional complaints, except as documented Neuro Reports no additional complaints Psych Reports no additional complaints Kirit/Lymph Reports as per HPI Physical Exam Const General: cooperative, healthy appearing, comfortable, no acute distress, well developed, alert and awake Orientation/consciousness: patient oriented x3 Limitations: no limitations HEENT Head: Yes normal to inspection, Yes normocephalic and Yes atraumatic Ears: hearing grossly normal bilaterally (bilateral hearing aids present ) Eyes General: appearance normal, both eyes and all related structures Neck Neck: Yes normal visual inspection and Yes trachea midline Chest Chest palpation & inspection: normal inspection of the chest Resp Effort & Inspection: normal respiratory effort and able to speak in complete sentences Cardio Rate: regular rate GI Inspection: Yes normal to inspection General: Yes no CVA tenderness Back/Spine/Pelvis Back: no CVA tenderness Skin General skin exam: no rashes or lesions noted Neuro General: patient oriented x3 Extrem General: Yes normal to inspection Psych Appearance: grossly normal and well kempt Mental Status: mental status grossly normal Speech and movement: Normal speech and movement present and Clear speech present Affect: normal affect Attitude: cooperative Thought process: Normal thought process present Thought content: Normal thought content present Insight: Fair insight present (Psych) Judgement: Fair judgement present (Psych) Office Procedures Post Void Residual Post Residual Void Post Void Residual (PVR): 63 [id number] Void Residual by ultrasound Results AMB Urinalysis, Automated UA Leukoctes 0 Chente/uL Last Edit by Louisa Harrison [facility] on 08/01/23 09:11 UA Nitrite Negative Last Edit by Louisa Harrison [facility] on 08/01/23 09:11 UA Urobilinogen 0.2 mg/dL Last Edit by Louisa Harrison [facility] on 08/01/23 09:1 1 UA Protein 0 mg/dL Last Edit by Louisa Harrison [facility] on 08/01/23 09:11 UA pH 7.0 Last Edit by Louisa Harrison [facility] on 08/01/23 09:11 UA Blood 0 Porter/uL Last Edit by Louisa Harrison [facility] on 08/01/23 09:11 UA Specific [place] 1.005 Last Edit by Louisa Harrison [facility] on 08/01/23 09: 11 UA Ketone Negative Last Edit by Louisa Harrison [facility] on 08/01/23 09:11 UA Bilirubin 0 mg/dL Last Edit by Louisa Harrison [facility] on 08/01/23 09:11 UA Glucose 0 mg/dL Last Edit by Louisa Harrison [facility] on 08/01/23 09:11 Results Reviewed Results Reviewed: Laboratory Last Values Urine pH (Auto) 7.0 08/01/23 08:57 Specific [place] (Auto) 1.005 08/01/23 08:57 Urine Protein (Auto) 0 mg/dL 08/01/23 08:57 Glucose (UA)(Auto) 0 mg/dL 08/01/23 08:57 Urine Ketones (Auto) Negative 08/01/23 08:57 Urine Blood (Auto) 0 Porter/uL 08/01/23 08:57 Urine Nitrite (Auto) Negative 08/01/23 08:57 Urine Bilirubin (Auto) 0 mg/dL 08/01/23 08:57 Urine Urobilinogen (Auto) 0.2 mg/dL 08/01/23 08:57 Leukocyte Esterase (Auto) 0 Chente/uL 08/01/23 08:57 Assessment & Plan Assessment & Plan (1) Weak urinary stream: Code(s): R39.12 - Poor urinary stream (2) Retrograde ejaculation: Code(s): N53.14 - Retrograde ejaculation Plan In office urinalysis results reviewed with the patient today; as noted above. PVR 63 mL. Stop alfuzosin Start terazosin 5 mg at bedtime as discussed and prescribed. Discussed potential for retrograde ejaculation as patient experience this with previous trial of Flomax Continue finasteride Tuesday. Discussed possible near future in office cystoscopy if symptoms persist Follow up in 6 weeks with PVR; or sooner with any issues, concerns, and or questions. Orders: Orders AMB Urinalysis Automated Today Z13.9 - Encounter for screening, unspecified AMB Post Void Residual by ultrasound Today R39.12 - Poor urinary stream Medications: New terazosin 5 mg PO BEDTIME 30 days 30 caps 1RF N40.1 - Benign prostatic hyperplasia with lower urinary tract symptoms, R35.0 - Frequency of micturition Discontinued alfuzosin ER Take before bedtime Discontinued Reason: Doctor's Order 10 mg PO BEDTIME 30 days 30 tabs 1RF N32.0 - Bladder-neck obstruction, N40.1 - Benign prostatic hyperplasia with lower urinary tract symptoms, R33.9 - Retention of urine, unspecified, R35.1 - Nocturia, R39.12 - Poor urinary stream Patient Instructions: The patient had an opportunity to ask questions regarding the treatment plan. All questions were answered. Physical exam, labs, and imaging were discussed and reviewed in detail. As well as risks, benefits, and discussion of treatment choices. No major barriers to understanding were identified. The patient expressed understanding and agreement with the above treatment plan. The patient was made aware they should contact our office by phone for worsening of their current condition, the appearance of new symptoms, or with any questions or concerns. Compliance is encouraged with any medications and follow up testing that is ordered. It is a privilege to be allowed the opportunity to participate in? your urological care.? Again, if you have any questions or concerns If you have any questions or concerns please do not hesitate to contact me. The office is [phone]. This note is constructed using voice recognition software. While every effort has been made to ensure accuracy sound technician errors may have been included. Yours sincerely, RENATE Childers Coding Level of Care Code Est Pt Level 4 (47110) Diagnoses Weak urinary stream R39.12 Retrograde ejaculation N53.14 CPT Codes Post Residual Void - PVR CPT Code: 20778-Okpc Void Residual by ultrasound ([id number])
== END 2023-08-01 09:32 | disposition home or self-care (01) ==
PROVIDERS: PCP Internal Medicine; Visit Provider Nurse Practitioner Family
DX: R39.12 Poor urinary stream (principal); N53.14 Retrograde ejaculation; Z13.9 Encounter for screening, unspecified
CPT/HCPCS: 99214

== ENCOUNTER → 2023-08-01 08:34 | Outpatient (BNVA) | payer MEDICARE, MEDICAID, SELFPAY | PROVIDERS: PCP Internal Medicine; Visit Provider Nurse Practitioner Family | DX: R39.12 Poor urinary stream (principal); N53.14 Retrograde ejaculation | CPT/HCPCS: 51798; 81003; 99212 ==

== ENCOUNTER 2023-08-11 08:57 | Outpatient (REF) | payer MEDICARE, MEDICAID, SELFPAY | END 2023-08-11 08:58 | disposition home or self-care (01) | LOC: HO.BBR 08:57 | PROVIDERS: PCP Internal Medicine; Visit Provider Internal Medicine | DX: Z13.89 Encounter for screening for other disorder (principal) ==

== ENCOUNTER 2023-09-08 08:46 | Outpatient (REF) | payer MEDICARE, MEDICAID, SELFPAY | END 2023-09-08 08:47 | disposition home or self-care (01) | LOC: HO.BBR 08:46 | PROVIDERS: PCP Internal Medicine; Visit Provider Internal Medicine | DX: Z13.89 Encounter for screening for other disorder (principal) ==

== ENCOUNTER 2023-09-13 08:14 | Outpatient (AMB) | payer MEDICARE, MEDICAID, SELFPAY ==
--- NOTE | 2023-09-13 08:16 | A.OFFVIS_ITS ---
Intake Intake Visit Reasons: 6w/PVR Intake Note: Patient presents today for a follow-up Meds- Terazosin, Finasteride Allergies to Antibiotic- No Known Allergies Blood Thinner- None Post Void Residual: 0ml Patient Symptoms: Patient stated he is taking Finasteride and Terazosin. Book Critic Required: No Accompanied by: Self / Same As Patient Allergies DRYER SHEETS Allergy (Intermediate, Uncoded 09/13/23 08:57) HIVES Medication List - Last Reconciled 09/13/23 by NI Childers-BRITANY albuterol sulfate 90 mcg/actuation (ProAir HFA) 1 inh inhalation QID PRN 30 days cholecalciferol (vitamin D3) 50 mcg PO DAILY finasteride 5 mg PO .MWF 90 days fluticasone propion-salmeterol 250-50 mcg/dose (Wixela Inhub) 1 inh inhalation BID 30 days magnesium oxide 400 mg PO DAILY naproxen 500 mg PO BID PRN 30 days terazosin 5 mg PO BEDTIME 30 days HPI HPI Comments History of Present Illness Details Erick Fields is a very pleasant 68-year-old male patient of Dr. Sue. He has a PMH of COPD and hemochromatosis. He presents to the office today for follow-up of his lower urinary tract symptoms. Of note, patient was seen approximately 6 weeks ago at which time he was started on 5 mg of terazosin as he has previously trialed Flomax, alfuzosin, and low-dose Cialis 5 mg daily and has not found these medications to be helpful in his weak urinary stream. In discussion with the patient today he reports noting no improvement with 5 mg of terazosin. He reports noting dizziness and has since stopped taking this medication. Previous workup has included a retroperitoneal ultrasound noting right kidney with no calculi or hydronephrosis. Multiple peripelvic cysts largest measuring 1.7 cm in the mid pole. No imaging follow-up is recommended per radiology report. Left kidney with no calculi or hydronephrosis. Multiple peripelvic cysts. No imaging follow-up is recommended per radiology report. The bladder is well distended and normal. Pre void bladder volume is approximately 450 mL. Postvoid bladder volume is approximately 160 mL. Prostate volume is approximately 20 mL. PSA 02/06--0.1. He reports compliance with finasteride Tuesday. In office urinalysis results reviewed with the patient today. PVR 0 mL. Discussed follow-up in office cystoscopy for further assessment evaluation as patient has failed multiple urological medications. He otherwise denies urinary urgency, urinary frequency, incontinence, nocturia, hematuria, dysuria, foul smelling urine, flank pain, fever, and or chills. He does report erectile dysfunction at times however does not find this bothersome as he has not sexually active. He otherwise offers no other issues or concerns at this time. [facility] Medical History Hereditary hemochromatosis Surgical History No pertinent past surgical history Social History Household Members: Significant Other Housing: Other (mobile home) Housing Other:: trailor Are you a primary manager primary care to a significant other at home: No Alcohol intake: never Patient Tobacco Use Status: Former Tobacco user Tobacco use type: Cigarette e-Cigarette/Vaping Use: Never Used service: No Current occupational status: retired Cognitive needs: No Hearing needs: Yes Vision needs: Yes Review of Systems Const All systems reviewed & are unremarkable except as noted in HPI and below Eyes Reports no additional complaints ENT Reports no additional complaints Card Denies chest pain, Denies irregular heart rhythm and Denies leg edema Resp Reports as per HPI GI Reports no additional complaints Reports other (Being treated for BPH) Musc Reports no additional complaints Skin/Breast Reports system reviewed and no additional complaints, except as documented Neuro Reports no additional complaints Psych Reports no additional complaints Kirit/Lymph Reports as per HPI Physical Exam Const General: cooperative, healthy appearing, comfortable, no acute distress, well developed, alert and awake Orientation/consciousness: patient oriented x3 Limitations: no limitations HEENT Head: Yes normal to inspection, Yes normocephalic and Yes atraumatic Ears: hearing grossly normal bilaterally (bilateral hearing aids present ) Eyes General: appearance normal, both eyes and all related structures Neck Neck: Yes normal visual inspection and Yes trachea midline Chest Chest palpation & inspection: normal inspection of the chest Resp Effort & Inspection: normal respiratory effort and able to speak in complete sentences Cardio Rate: regular rate GI Inspection: Yes normal to inspection General: Yes no CVA tenderness Back/Spine/Pelvis Back: no CVA tenderness Skin General skin exam: no rashes or lesions noted Neuro General: patient oriented x3 Extrem General: Yes normal to inspection Psych Appearance: grossly normal and well kempt Mental Status: mental status grossly normal Speech and movement: Normal speech and movement present and Clear speech present Affect: normal affect Attitude: cooperative Thought process: Normal thought process present Thought content: Normal thought content present Insight: Fair insight present (Psych) Judgement: Fair judgement present (Psych) Office Procedures Post Void Residual Post Residual Void Post Void Residual (PVR): 0 23795-Uupc Void Residual by ultrasound Results AMB Urinalysis, Automated UA Leukoctes 0 Chente/uL Last Edit by Ginny Nguyễn CMA on 09/13/23 08 :34 UA Nitrite Negative Last Edit by Ginny Nguyễn CMA on 09/13/23 08: 34 UA Urobilinogen 0.2 mg/dL Last Edit by Ginny Nguyễn CMA on 4 08:34 UA Protein 0 mg/dL Last Edit by Ginny Nguyễn CMA on 09/13/23 08:34 UA pH 6.0 Last Edit by Ginny Nguyễn CMA on 09/13/23 08:34 UA Blood 0 Porter/uL Last Edit by Ginny Nguyễn CMA on 09/13/23 08:34 UA Specific [place] 1.025 Last Edit by Ginny Nguyễn CMA on 08:34 UA Ketone Negative Last Edit by Ginny Nguyễn CMA on 09/13/23 08:3 4 UA Bilirubin 0 mg/dL Last Edit by Ginny Nguyễn CMA on 09/13/23 08: 34 UA Glucose 0 mg/dL Last Edit by Ginny Nguyễn CMA on 09/13/23 08:34 Results Reviewed Results Reviewed: Laboratory Last Values Urine pH (Auto) 6.0 09/13/23 08:33 Specific [place] (Auto) 1.025 09/13/23 08:33 Urine Protein (Auto) 0 mg/dL 09/13/23 08:33 Glucose (UA)(Auto) 0 mg/dL 09/13/23 08:33 Urine Ketones (Auto) Negative 09/13/23 08:33 Urine Blood (Auto) 0 Porter/uL 09/13/23 08:33 Urine Nitrite (Auto) Negative 09/13/23 08:33 Urine Bilirubin (Auto) 0 mg/dL 09/13/23 08:33 Urine Urobilinogen (Auto) 0.2 mg/dL 09/13/23 08:33 Leukocyte Esterase (Auto) 0 Chente/uL 09/13/23 08:33 Assessment & Plan Assessment & Plan (1) Erectile dysfunction: Code(s): N52.9 - Male erectile dysfunction, unspecified (2) Weak urinary stream: Code(s): R39.12 - Poor urinary stream Plan In office urinalysis results reviewed with the patient today; as noted above. PVR 0 mL. Stop terazosin; as patient reporting dizziness. Continue finasteride Tuesday as discussed. Patient with failed multiple urological medications and continues with weak urinary stream Discussed follow-up in office cystoscopy for further assessment evaluation; discussed risks and benefits of cystoscopy Follow-up in office cystoscopy as discussed; or sooner with any issues, concerns, and or questions. Orders: Orders AMB Urinalysis Automated Today R33.9 - Retention of urine, unspecified AMB Post Void Residual by ultrasound Today N40.0 - Benign prostatic hyperplasia without lower urinary tract symptoms, R33.9 - Retention of urine, unspecified Medications: Discontinued terazosin Discontinued Reason: Doctor's Order 5 mg PO BEDTIME 30 days 30 caps 1RF N40.1 - Benign prostatic hyperplasia with lower urinary tract symptoms, R35.0 - Frequency of micturition Patient Instructions: The patient had an opportunity to ask questions regarding the treatment plan. All questions were answered. Physical exam, labs, and imaging were discussed and reviewed in detail. As well as risks, benefits, and discussion of treatment choices. No major barriers to understanding were identified. The patient expressed understanding and agreement with the above treatment plan. The patient was made aware they should contact our office by phone for worsening of their current condition, the appearance of new symptoms, or with any questions or concerns. Compliance is encouraged with any medications and follow up testing that is ordered. It is a privilege to be allowed the opportunity to participate in? your urological care.? Again, if you have any questions or concerns If you have any questions or concerns please do not hesitate to contact me. The office is [phone]. This note is constructed using voice recognition software. While every effort has been made to ensure accuracy associate financial representative errors may have been included. Yours sincerely, RENATE Childers Coding Level of Care Code Est Pt Level 3 (38844) Diagnoses Erectile dysfunction N52.9 Weak urinary stream R39.12 CPT Codes Post Residual Void - PVR CPT Code: 98689-Bpev Void Residual by ultrasound ([id number])
== END 2023-09-13 09:31 | disposition home or self-care (01) ==
PROVIDERS: PCP Internal Medicine; Visit Provider Nurse Practitioner Family
DX: N52.9 Male erectile dysfunction, unspecified (principal); R39.12 Poor urinary stream
CPT/HCPCS: 99213

== ENCOUNTER → 2023-09-13 08:14 | Outpatient (BNVA) | payer MEDICARE, MEDICAID, SELFPAY | PROVIDERS: PCP Internal Medicine; Visit Provider Nurse Practitioner Family | DX: N52.9 Male erectile dysfunction, unspecified (principal); R39.12 Poor urinary stream | CPT/HCPCS: 51798; 81003; 99212 ==

== ENCOUNTER 2023-10-06 08:51 | Outpatient (REF) | payer MEDICARE, MEDICAID, SELFPAY | END 2023-10-06 08:52 | disposition home or self-care (01) | LOC: HO.BBR 08:51 | PROVIDERS: PCP Internal Medicine; Visit Provider Internal Medicine | DX: Z31.89 Encounter for other procreative management (principal) ==

== ENCOUNTER 2023-10-07 12:09 | Outpatient (AMB) | payer MEDICARE, MEDICAID, SELFPAY ==
[2023-10-07 12:18] VITALS: BP 120/68; PULSE 60; O2SAT 96; BMI 25.7
--- NOTE | 2023-10-07 12:18 | A.OFFPC_ITS ---
Vital Signs 10/07/23 12:18 Height 5 ft 11 in Weight 184 lb BMI 25.7 BP 120/68 Blood Pressure Location Rt brachial Position Sitting Pulse 60 Pulse Source Pulse Oximeter Pulse Oximetry (%) 96 Oxygen Delivery Method Room Air Intake Visit Reasons: discuss medical concerns Allergies DRYER SHEETS Allergy (Intermediate, Uncoded 09/13/23 08:57) HIVES Medication List - Last Reconciled 10/07/23 by Mikael Sue MD cholecalciferol (vitamin D3) 50 mcg PO DAILY finasteride 5 mg PO .MWF 90 days fluticasone propion-salmeterol 250-50 mcg/dose (Wixela Inhub) 1 inh inhalation BID 30 days magnesium oxide 400 mg PO DAILY naproxen 500 mg PO BID PRN 30 days Tobacco use date assessed: 10/07/23 Fall risk assessment: No Falls in past year Last assessed Fall Risk: 10/07/23 Dental Screening Dental Screen Date: 10/07/23 Did you have a dental visit in the last 12 months?: No Did you have a dental problem in the last 6 months where you did not have access to dental care?: No Was dental information given to patient?: No HPI discuss medical concerns HPI Details Patient is a 68-year-old gentleman came today to talk burning sensation in his feet Patient says that it feels as if his feet are weight at the bottom and they feel cold all the time At night he can not keep them cover as they start burning. I have ordered EMG nerve conduction study for his lower extremity He also need to see Dermatology for skin cancer screening, few of his moles on his body are changing size Patient is also due for colonoscopy Osteoarthritis multiple joints, patient is taking naproxen with good control of symptoms, refill sent He is only taking that as needed. Patient goes in for phlebotomy every other week at hematology department [facility] due to elevated iron He is also seeing Urology for prostatic hypertrophy and is taking finasteride through them. Patient have appointment for Medicare wellness next month. [facility] Medical History Hereditary hemochromatosis Surgical History No pertinent past surgical history Social History Household Members: Significant Other Housing: Other (mobile home) Housing Other:: trailor Are you a primary manager intensive care unit to a significant other at home: No Alcohol intake: never Patient Tobacco Use Status: Former Tobacco user Tobacco use type: Cigarette e-Cigarette/Vaping Use: Never Used service: No Current occupational status: retired Cognitive needs: No Hearing needs: Yes Vision needs: Yes Questionnaire Thrive Questionnaire Date Thrive assessed: 03/13/21 AUDIT C Alcohol Use Questionnaire (AUDIT-C) 1. How often do you have a drink containing alcohol?: Never 3. How often do you have six or more drinks on one occasion?: Never Total Score: 0 Score Reviewed/Action Taken: Yes Review of Systems Const Denies chills and Denies fever(s) ENT Denies epistaxis and Denies nasal discharge Card Denies chest pain Resp Denies chest congestion, Denies cough and Denies hemoptysis GI Denies diarrhea and Denies nausea Skin/Breast Denies rash Neuro Reports no additional complaints Psych Reports no additional complaints Endo Reports no additional complaints Physical exam (Primary Care) Vital Signs: Last Vital Signs Pulse 60 10/07/23 12:18 BP 120/68 10/07/23 12:18 Pulse Ox 96 10/07/23 12:18 Oxygen Delivery Method Room Air 10/07/23 12:18 BMI result Body Mass Index 25.7 Tobacco/Smoking Status: Tobacco use Status Tobacco use date assessed 10/07/23 10/07/23 12:21 Patient Tobacco Use Status Former Tobacco user 10/07/23 12:18 Tobacco use type Cigarette 10/07/23 12:18 e-Cigarette/Vaping Use Never Used 10/07/23 12:18 Thrive Assessment: Date of Thrive Assessment Date Thrive assessed 03/13/21 10/07/23 12:18 Const General: cooperative, comfortable and no acute distress Orientation/consciousness: patient oriented x3 HENMT Head: Yes normocephalic Eyes General: appearance normal, both eyes and all related structures Neck Neck: Yes supple Resp Effort & Inspection: normal respiratory effort, no cough and no stridor Cardio Rhythm: regular rhythm Heart sounds: S1 normal heart sound present and S2 normal heart sound present Skin General skin exam: turgor normal Neuro Other: Sensory grossly diminished lower extremity bilateral General: patient oriented x3, tone normal and moves all extremities Extrem Right lower extremity: no edema Left lower extremity: no edema Assessment and Plan Assessment & Plan (1) Paresthesia of lower extremity: Code(s): R20.2 - Paresthesia of skin (2) Change in mole: Code(s): D22.9 - Melanocytic nevi, unspecified (3) Hemochromatosis: Comment: HEREDITARY. HE DONATES BLOOD PERIODICALLY. Code(s): E83.119 - Hemochromatosis, unspecified Qualifiers: Hemochromatosis type: hereditary Qualified Code(s): E83.110 - Hereditary hemochromatosis (4) BPH (benign prostatic hyperplasia): Code(s): N40.0 - Benign prostatic hyperplasia without lower urinary tract symptoms Qualifiers: Lower urinary tract symptom detail: nocturia Lower urinary tract symptom presence: symptoms present Qualified Code(s): N40.1 - Benign prostatic hyperplasia with lower urinary tract symptoms; R35.1 - Nocturia (5) COPD, severe: Comment: Chronic obstructive pulmonary disease, remains well controlled with his current regimen. He is very careful and has not gotten any respiratory infection in the past 1 year. MEDS : Continue Symbicort 160-4.52 puffs b.i.d. Continue ATROVENT HFA 1 INH QID ( CHANGED PER INSURANCE COVERAGE ) Albuterol HFA 2 puffs Q 6 hours only p.r.n. Code(s): J44.9 - Chronic obstructive pulmonary disease, unspecified (6) Osteoarthritis involving multiple joints on both sides of body: Code(s): M15.9 - Polyosteoarthritis, unspecified (7) Colon cancer screening: Code(s): Z12.11 - Encounter for screening for malignant neoplasm of colon Plan Patient is a 68-year-old gentleman came today to talk burning sensation in his feet Patient says that it feels as if his feet are weight at the bottom and they feel cold all the time At night he can not keep them cover as they start burning. I have ordered EMG nerve conduction study for his lower extremity He also need to see Dermatology for skin cancer screening, few of his moles on his body are changing size Patient is also due for colonoscopy Osteoarthritis multiple joints, patient is taking naproxen with good control of symptoms, refill sent He is only taking that as needed. COPD treatment through start up specialist Patient goes in for phlebotomy every other week at hematology department [facility] due to elevated iron He is also seeing Urology for prostatic hypertrophy and is taking finasteride through them. Patient have appointment for Medicare wellness next month. Orders: Orders NE nerve conduction velocity Today R20.2 - Paresthesia of skin NE electromyogram (EMG) Today R20.2 - Paresthesia of skin Referrals Gastroenterology Referral Z12.11 - Encounter for screening for malignant neoplasm of colon Dermatology Referral D22.9 - Melanocytic nevi, unspecified, Z12.83 - Encounter for screening for malignant neoplasm of skin Medications: Refilled 2 naproxen Take it with food 12 hours apart as needed for hip pain 500 mg PO BID PRN 60 tabs 0RF pain 30 days Coding Level of Care Code Est Pt Level 4 (09452) Diagnoses Paresthesia of lower extremity R20.2 Change in mole D22.9 Hereditary hemochromatosis E83.110 Hemochromatosis type: hereditary Benign prostatic hyperplasia with nocturia N40.1; R35.1 Lower urinary tract symptom detail: nocturia Lower urinary tract symptom presence: symptoms present COPD, severe J44.9 Osteoarthritis involving multiple joints on both sides of body M15.9 Colon cancer screening Z12.11
== END 2023-10-07 14:21 | disposition home or self-care (01) ==
PROVIDERS: PCP Internal Medicine; Visit Provider Internal Medicine
DX: R20.2 Paresthesia of skin (principal); E83.110 Hereditary hemochromatosis; J44.9 Chronic obstructive pulmonary disease, unspecified; D22.9 Melanocytic nevi, unspecified; N40.1 Benign prostatic hyperplasia with lower urinary tract symptoms; R35.1 Nocturia; M15.9 Polyosteoarthritis, unspecified; Z12.11 Encounter for screening for malignant neoplasm of colon
CPT/HCPCS: 99214

== ENCOUNTER 2023-10-24 09:04 | Outpatient (AMB) | payer MEDICARE, MEDICAID, SELFPAY ==
--- NOTE | 2023-10-24 09:34 | MHC.OFFVIS ---
Intake Intake Visit Reasons: cysto Intake Note: Patient presents today for a Cystoscopy Meds: Finasteride Allergies to Antibiotic: No Known Allergies Blood Thinner: None Urinalysis test clear for Cysto? Yes Disposable Uro-G Cystoscope Cannula: Lot: [id number] Exp: 05/26/2026 Auto Phone Installer Required: No Accompanied by: Self / Same As Patient Allergies DRYER SHEETS Allergy (Intermediate, Uncoded 10/24/23 09:47) HIVES HPI HPI Comments History of Present Illness Details 10/24/2023--Erick is a 68-year-old male who is evaluated due to BPH and lower urinary symptoms. He is here for office cystoscopy. He is on proscar 3 times a week, he states urine flow is slow but he does empty adequately. Office cystoscopy findings--prostatic urethra nonobstructive, bladder no suspicious bladder lesions visualized. Plan discussed - Recommend continue proscar 3 x a week. FU with DISTILLERY MILLER HELPER Lorin Marie in 3 months Review of chart 09/13/23--Erick Fields is a very pleasant 68-year-old male patient of Dr. Sue. He has a PMH of COPD and hemochromatosis. He presents to the office today for follow-up of his lower urinary tract symptoms. Of note, patient was seen approximately 6 weeks ago at which time he was started on 5 mg of terazosin as he has previously trialed Flomax, alfuzosin, and low-dose Cialis 5 mg daily and has not found these medications to be helpful in his weak urinary stream. In discussion with the patient today he reports noting no improvement with 5 mg of terazosin. He reports noting dizziness and has since stopped taking this medication. Previous workup has included a retroperitoneal ultrasound noting right kidney with no calculi or hydronephrosis. Multiple peripelvic cysts largest measuring 1.7 cm in the mid pole. No imaging follow-up is recommended per radiology report. Left kidney with no calculi or hydronephrosis. Multiple peripelvic cysts. No imaging follow-up is recommended per radiology report. The bladder is well distended and normal. Pre void bladder volume is approximately 450 mL. Postvoid bladder volume is approximately 160 mL. Prostate volume is approximately 20 mL. PSA 02/06--0.1. He reports compliance with finasteride Tuesday. In office urinalysis results reviewed with the patient today. PVR 0 mL. Discussed follow-up in office cystoscopy for further assessment evaluation as patient has failed multiple urological medications. He otherwise denies urinary urgency, urinary frequency, incontinence, nocturia, hematuria, dysuria, foul smelling urine, flank pain, fever, and or chills. He does report erectile dysfunction at times however does not find this bothersome as he has not sexually active. He otherwise offers no other issues or concerns at this time. [facility] Medical History Hereditary hemochromatosis Surgical History No pertinent past surgical history Social History Household Members: Significant Other Housing: Other (mobile home) Housing Other:: trailor Are you a primary progressive care nurse to a significant other at home: No Alcohol intake: never Patient Tobacco Use Status: Former Tobacco user Tobacco use type: Cigarette e-Cigarette/Vaping Use: Never Used service: No Current occupational status: retired Cognitive needs: No Hearing needs: Yes Vision needs: Yes Review of Systems Const All systems reviewed & are unremarkable except as noted in HPI and below Reports no additional complaints Eyes Reports no additional complaints ENT Reports no additional complaints Card Reports no additional complaints Resp Reports no additional complaints GI Reports no additional complaints Reports as per HPI Musc Reports no additional complaints Skin/Breast Reports system reviewed and no additional complaints, except as documented Neuro Reports no additional complaints Psych Reports no additional complaints Endo Reports no additional complaints Kirit/Lymph Reports no additional complaints Aller/Immun Reports no additional complaints Office Procedures Cystoscopy Consent Discussed risk and benefit or proposed procedure with the patient. Information consent for procedure given to the patient. Discussed technical aspects, risks, benefits and alternatives in full. Addressed all of the patient's questions and concerns regarding the procedure. The patient demonstrated knowledge and understanding. They wish to proceed with this procedure. Preparation The patient was prepped in the usual manner. A transport engineer was present and in the room. Genitalia was prepped with betadine solution in a sterile manner. Lidocaine Jelly 2% was placed into the urethra and 16Fr flexible Olympus cystoscope was inserted into the meatus after adequate lubrication. Procedure Time out per protocol performed. Bladder Inspection Bladder Inspection: The bladder was inspected in its entirety with utilization retroflexion displaying: Tumor(s): Nonvisualized Trabeculation: Mild Mucosal Erthema: Not applicable Orifices: normal shape and position Urethra: normal Cystoscopy findings: prostatic urethra - non obstructive, bulbous urethra WNL, no suspicious bladder lesions visualized [id number] DISPOSABLE SCOPE URO-G FLEXIBLE SCOPE Procedure code (CPT) selection complete Office Meds lidocaine HCl 2 % mucosal jelly in applicator Performing Provider: Marisol Simmons MD Performing Location: [facility] Administered by: Stu Sheppard LPN on 10/24/23 09:52 Dose Route Admin Location Dispensed Lot Number Expiration Date [facility] Mail Handlers Supervisor 10 mL intra-urethral 20 mL naproxen 500 mg tablet Performing Provider: Marisol Simmons MD Performing Location: [facility] Administered by: Stu Sheppard LPN on 10/24/23 09:52 Dose Route Admin Location Dispensed Lot Number Expiration Date [place] Mail Handlers Supervisor 500 mg PO 1 tab ciprofloxacin HCl 500 mg tablet Performing Provider: Marisol Simmons MD Performing Location: [facility] Administered by: Stu Sheppard LPN on 10/24/23 09:52 Dose Route Admin Location Dispensed Lot Number Expiration Date [place] Mail Handlers Supervisor 500 mg PO 1 tab Results AMB Urinalysis, Automated UA Leukoctes 0 Chente/uL Last Edit by Ginny Nguyễn CMA on 10/24/23 09:48 UA Nitrite Positive Last Edit by Ginny Nguyễn CMA on 10/24/23 09:48 UA Urobilinogen 0.2 mg/dL Last Edit by Ginny Nguyễn CMA on 10/24/23 09:48 UA Protein 0 mg/dL Last Edit by Ginny Nguyễn CMA on 10/24/23 09:48 UA pH 6.0 Last Edit by Ginny Nguyễn CMA on 10/24/23 09:48 UA Blood 0 Porter/uL Last Edit by Ginny Nguyễn CMA on 10/24/23 09:48 UA Specific [place] 1.010 Last Edit by Ginny Nguyễn CMA on 10/24/23 09:48 UA Ketone Negative Last Edit by Ginny Nguyễn CMA on 10/24/23 09:48 UA Bilirubin 0 mg/dL Last Edit by Ginny Nguyễn CMA on 10/24/23 09:48 UA Glucose 0 mg/dL Last Edit by Ginny Nguyễn CMA on 10/24/23 09:48 Results Reviewed Results Reviewed: Laboratory Last Values Urine pH (Auto) 6.0 10/24/23 09:36 Specific [place] (Auto) 1.010 10/24/23 09:36 Urine Protein (Auto) 0 mg/dL 10/24/23 09:36 Glucose (UA)(Auto) 0 mg/dL 10/24/23 09:36 Urine Ketones (Auto) Negative 10/24/23 09:36 Urine Blood (Auto) 0 Porter/uL 10/24/23 09:36 Urine Nitrite (Auto) Positive 10/24/23 09:36 Urine Bilirubin (Auto) 0 mg/dL 10/24/23 09:36 Urine Urobilinogen (Auto) 0.2 mg/dL 10/24/23 09:36 Leukocyte Esterase (Auto) 0 Chente/uL 10/24/23 09:36 Assessment & Plan Assessment & Plan (1) Erectile dysfunction: Code(s): N52.9 - Male erectile dysfunction, unspecified (2) Weak urinary stream: Code(s): R39.12 - Poor urinary stream Plan continue proscar 3 x a week. FU with BRAYDEN Marie in 3 months Orders: Orders AMB Urinalysis Automated Today R33.9 - Retention of urine, unspecified AMB Cystoscopy Today R39.12 - Poor urinary stream Patient Instructions: The patient had an opportunity to ask questions regarding treatment plan. All questions were answered. The patient expressed understanding and agreement with the above treatment plan. The patient is aware they should contact our office by phone for worsening of their current condition or the appearance of new symptoms. Compliance is encouraged with any medications and followup testing that is ordered. It is a privilege to be allowed the opportunity to participate in the urologic care of your patient. If you have any questions or concerns regarding treatment for the above conditions please do not hesitate to contact me. The office telephone contact is [phone]. This note is constructed in part using voice recognition software. While every effort has been made to ensure accuracy watch train inspector errors may have been included. Yours sincerely, Marisol Simmons MD Coding Level of Care Code Procedure Only Diagnoses Erectile dysfunction N52.9 Weak urinary stream R39.12 CPT Codes Cystoscopy - CPT: 94532-Rhbwfpnhqj ([id number])
== END 2023-10-24 10:27 | disposition home or self-care (01) ==
PROVIDERS: PCP Internal Medicine; Visit Provider Urology
DX: R39.12 Poor urinary stream (principal); R33.9 Retention of urine, unspecified; N52.9 Male erectile dysfunction, unspecified
CPT/HCPCS: 52000

== ENCOUNTER → 2023-10-24 09:04 | Outpatient (BNVA) | payer MEDICARE, MEDICAID, SELFPAY | PROVIDERS: PCP Internal Medicine; Visit Provider Urology | DX: R39.12 Poor urinary stream (principal); N52.9 Male erectile dysfunction, unspecified | CPT/HCPCS: 52000; 81003 ==

== ENCOUNTER 2023-11-01 08:48 | Outpatient (AMB) | payer MEDICARE, MEDICAID, SELFPAY ==
[2023-11-01 08:51] VITALS: BP 120/70; PULSE 62; O2SAT 97; BMI 26.1
--- NOTE | 2023-11-01 08:51 | A.OFFVIS_ITS ---
Intake Vital Signs 11/01/23 08:51 Height 5 ft 11 in Weight 187 lb BMI 26.1 BP 120/70 Blood Pressure Location Rt brachial Position Sitting Pulse 62 Pulse Source Pulse Oximeter Pulse Oximetry (%) 97 Oxygen Delivery Method Room Air Intake Visit Reasons: CHRISTIANE G0438 Medical Appointment Scheduler Required: No Accompanied by: Self / Same As Patient Allergies DRYER SHEETS Allergy (Intermediate, Uncoded 11/01/23 08:53) HIVES Medication List - Last Reconciled 11/01/23 by Mikael Sue MD cholecalciferol (vitamin D3) 50 mcg PO DAILY finasteride 5 mg PO .MWF 90 days fluticasone propion-salmeterol 250-50 mcg/dose (Wixela Inhub) 1 inh inhalation BID 30 days magnesium oxide 400 mg PO DAILY naproxen 500 mg PO BID PRN 30 days Do you need a note to return to daycare/school/sports/work: No HPI HPI Comments History of Present Illness Details AWV Medical/social history reviewed Past medical history reviewed [place] of care / care team list updated Surgical/ hospitalization history reviewed Current medications including OTC and supplements reviewed Family history reviewed Tobacco controlled form updated Alcohol use form updated Illicit drug use in social history reviewed Current diagnosis of depression ?screening updated Appropriate PHQ 2/PHQ-9 completed . Vital signs reviewed Alcohol tobacco drug use reviewed and discussed . MMSE completed . ? Fall risk: ?Assessed Fall history: ?None Have you had any falls with injury in the past year?? No Have you had 2 or more falls in the past year?? No Fall risk assessment completed Home safety discussed with the patient Functional ability assessed and discussed and documented Activities of daily living reviewed and appropriate actions taken . HRA filled out by the patient and reviewed by provider and scanned . Appropriate written screening schedule established . Any health advise needed provided . Advance care planning discussed with the patient , necessary paperwork filled Examination IPPE/AWE: Balance intact Romberg intact Tandem walk intact walk-in turn intact rise from sit to stand intact . ?Hearing ?whisper test FAILED . Medication list reviewed, patient is stable on medications All other providers patient is seeing discussed and noted . PFSH Medical History Hereditary hemochromatosis Surgical History No pertinent past surgical history Social History Household Members: Significant Other Housing: Other (mobile home) Housing Other:: trailor Are you a primary day care worker to a significant other at home: No Alcohol intake: never Patient Tobacco Use Status: Former Tobacco user Tobacco use type: Cigarette e-Cigarette/Vaping Use: Never Used service: No Current occupational status: retired Cognitive needs: No Hearing needs: Yes Vision needs: Yes Questionnaire Medicare Wellness Checkup What [age] What gender do you identify with?: male During the past 4 weeks, how much have you been bothered by emotional problems such as feeling anxious, depressed, irritable, sad or downhearted, and blue?: not at all During the past 4 weeks, has your physical & emotional health limited your social activities with family, friends, neighbors, or groups?: not at all During the past 4 weeks, how much bodily pain have you generally had?: very mild pain During the past 4 weeks, was someone available to help you if you needed & wanted help?: no, not at all During the past 4 weeks, what was the hardest physical activity you could do for at least 2 minutes?: very heavy Can you get to places out of walking distance without help? (For eg., can you travel alone on buses, taxis or drive your car?): Yes Can you go shopping for groceries or clothes without someone's help?: Yes Can you prepare your own meals?: Yes Can you do your housework without help?: Yes Because of any health problems, do you need the help of another person with your personal care needs such as eating, bathing, dressing or getting around the house?: No Can you handle your own money without help?: Yes During the past 4 weeks, how would you rate your health in general?: very good During the past 4 weeks how have things been going for you?: pretty well Are you having difficulties driving your car?: no Do you always fasten your seat belt when you are in a car?: yes, usually During past 4 weeks, have you been bothered by the following: never: Trouble eating well?, Teeth or denture problems?, Problems using the telephone? and Tiredness or fatigue?, seldom: Falling or dizzy when standing up and sometimes: Sexual problems? Have you fallen 2 or more times in the past year?: No Are you afraid of falling?: No Are you a smoker?: no During the past 4 weeks, how many drinks of wine, beer, or other alcoholic bever ages did you have?: no alcohol at all Do you exercise for about 20 minutes 3 or more times a week?: no, I usually do not exercise this much Have you been given information to help with the following?: yes: Keeping track of your medications? and no: Hazards in your house that might hurt you? How often do you have trouble taking medicines the way you have been told to take them?: I always take medicine as prescribed How confident are you that you can control & manage most of your health problems?: I do not have any health problems What is your race?: White Mini Mental State Exam (MMSE) Orientation What is the (year) (season) (date) (day) (month)?: year, season, date, day and month Where are we (state) (county) (town or city) (hospital) (floor)?: state, county, town or city and hospital/clinic Score Score: 9 Activity of Daily Living Bathing - sponge bath, tub bath or shower: receives no assistance (gets in/out by self, if usual bathing means Dressing - getting clothes from closets & drawers, including inner/outer garments & fasteners.: gets clothes & gets completely dressed without help Toileting - going to the 'toilet room' for urine/bowel elimination & cleaning self/arranging clothes: goes to toilet room, cleans self, arranges clothes without help Transfer: moves in & out of bed and chair without help (may use support object) Continence: controls urination/bowel movements completely by self Feeding: feeds self without help Total Score: 0 Information obtained from: patient Using telephone: independent Traveling: independent Shopping: independent Preparing meals: independent Housework: independent Taking medicine: independent Managing money: independent PHQ-9 Over the last 2 weeks, how often have you been bothered by any of the following problems? 1. Little interest or pleasure in doing things: not at all 2. Feeling down, depressed, or hopeless: not at all 3. Trouble falling or staying asleep, or sleeping too much: not at all 4. Feeling tired or having little energy: not at all 5. Poor appetite or overeating: not at all 6. Feeling bad about yourself - or that you are a failure or have let yourself or your family down: not at all 7. Trouble concentrating on things, such as reading the newspaper or watching television: not at all 8. Moving or speaking so slowly that other people could have noticed. Or the opposite - being so fidgety or restless that you have been moving around a lot more than usual: not at all 9. Thoughts that you would be better off or of hurting yourself in some way: not at all Total score: 0 Depression Screening Interpretation: Negative Depression Screening Done: Yes 92433 - PHQ-9 Billing: Yes Source: Developed by Drs. Ck Martinez, Juju Murray, Juancho Guzman and colleagues, with an educational yenny from [employer]. RITU-7 AMB Questionnaire RITU-7 Date RITU - 7 assessed: 11/01/23 Feeling nervous, anxious, or on edge: 0 = Not at all Not being able to stop or control worryin = Not at all Worrying too much about different things: 0 = Not at all Trouble relaxin = Not at all Being so restless that it is hard to sit still: 0 = Not at all Becoming easily annoyed or irritable: 0 = Not at all Feeling afraid as if something awful might happen: 0 = Not at all Total RITU-7 score (0-4 normal; 5-9 mild; 10-14 moderate; 15-21 severe): 0 Source: Developed by Drs. Ck Martinez, Juju Murray, Juancho Guzman and colleagues, with an educational yenny from [employer]. RITU-7 Assessment Billing RITU-7 Assessment Tool: RITU-7 Assessment 76317 Physical Exam Vital Signs: Last Vital Signs Pulse 62 11/01/23 08:51 BP 120/70 11/01/23 08:51 Pulse Ox 97 11/01/23 08:51 Oxygen Delivery Method Room Air 11/01/23 08:51 BMI result Body Mass Index 26.1 Assessment & Plan Assessment & Plan (1) Medicare annual wellness visit, initial: Code(s): Z00.00 - Encounter for general adult medical examination without abnormal findings (2) DNR (do not resuscitate): Code(s): Z66 - Do not resuscitate Plan Medicare wellness visit initial exam Colonoscopies due in 2025 Quality Reporting (2019) Depression/Bipolar (159/160/161/177) PHQ-9: Total score: 0 Coding Level of Care Code Medicare First (G0438) Diagnoses Medicare annual wellness visit, initial Z00.00 DNR (do not resuscitate) Z66 CPT Codes Advance Care Planning - Time spent: 1-15 minutes, not on file ([id number]) Additional Codes RITU-7 Assessment Billing - RITU-7 Assessment Tool: RITU-7 Assessment 25925 ([id number]) Advance Care Planning Advance Care Planning discussion: Completed/Scanned Forms completed: CHRISSIE Time spent: 1-15 minutes, not on file Actual minutes spent: 10
== END 2023-11-01 09:20 | disposition home or self-care (01) ==
PROVIDERS: Visit Provider Internal Medicine
DX: Z00.00 Encounter for general adult medical examination without abnormal findings (principal); Z66 Do not resuscitate
CPT/HCPCS: 1124F; G0438; G0439

== ENCOUNTER 2023-11-03 09:44 | Outpatient (REF) | payer MEDICARE, MEDICAID, SELFPAY | END 2023-11-03 09:45 | disposition home or self-care (01) | LOC: HO.BBR 09:44 | PROVIDERS: PCP Internal Medicine; Visit Provider Internal Medicine | DX: Z13.89 Encounter for screening for other disorder (principal) ==

== ENCOUNTER 2023-11-08 09:34 | Outpatient (REF) | payer MEDICARE, MEDICAID, SELFPAY ==
--- NOTE | 2023-11-08 09:44 | EMG_ITS ---
Bilateral tibial and peroneal motor studies were performed. Bilateral superficial peroneal, sural and median and lateral plantar sensory studies were performed. Tibial H reflexes were obtained and paraspinal muscles were tested with a needle. 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 MD MIRIAM King/ANGELOL / [phone]
== END 2023-11-08 09:35 | disposition home or self-care (01) ==
LOC: HO.NEURO 09:34
PROVIDERS: PCP Internal Medicine; Visit Provider Internal Medicine
DX: R20.2 Paresthesia of skin (principal)
CPT/HCPCS: 95886; 95913

== ENCOUNTER 2023-11-30 09:52 | Outpatient (REF) | payer MEDICARE, MEDICAID, SELFPAY | END 2023-11-30 09:53 | disposition home or self-care (01) | LOC: HO.BBR 09:52 | PROVIDERS: PCP Internal Medicine; Visit Provider Internal Medicine | DX: Z13.89 Encounter for screening for other disorder (principal) ==

== ENCOUNTER 2023-12-08 09:41 | Outpatient (AMB) | payer MEDICARE, MEDICAID, SELFPAY ==
[2023-12-08 10:03] VITALS: BP 122/70; PULSE 58; O2SAT 98; BMI 24.8
--- NOTE | 2023-12-08 10:03 | A.OFFVIS_ITS ---
Vital Signs 12/08/23 10:03 Height 5 ft 11 in Weight 178 lb BMI 24.8 BP 122/70 Blood Pressure Location Lt brachial Position Sitting Pulse 58 Pulse Source Pulse Oximeter Pulse Oximetry (%) 98 Oxygen Delivery Method Room Air Intake Visit Reasons: COPD Intake Note: pt is here for follow up and states he is feeling that sometimes he feels like he cannot get enough, doing things caused short of breath. Greenskeeper Head Required: No Allergies DRYER SHEETS Allergy (Intermediate, Uncoded 12/08/23 10:35) HIVES Medication List - Last Reconciled 12/08/23 by Kyle Wilder MD finasteride 5 mg PO .MWF 90 days fluticasone propion-salmeterol 250-50 mcg/dose (Wixela Inhub) 1 inh inhalation BID 30 days naproxen 500 mg PO BID PRN 30 days Do you need a note to return to daycare/school/sports/work: No HPI HPI COPD: Details: 68 YEARS OLD GENTLEMAN RELATIVELY IN [facility] IS HERE FOR 6 MONTHS FOLLOW-UP FOR COPD. HE HAS BEEN FREE OF ANY ACUTE INFECTION OR EXACERBATION. HE IS VERY ACTIVE AND HIKES IN THE ESPINAL, REGULARLY. HE DOES GET SHORT OF BREATH WHEN WALKING AND HAS TO STOP FOR A MINUTE OR 2 AND THEN GOES ON HIS MAIN MENTION WAS ABOUT SOME TINGLING SENSATIONS IN HIS FEET. RECENTLY HE HAS HAD NERVE CONDUCTION TEST. I DID SHARE WITH HIM THE REPORT OF THE TEST. [facility] Medical History Hereditary hemochromatosis Surgical History No pertinent past surgical history Social History Household Members: Significant Other Housing: Other (mobile home) Housing Other:: trailor Are you a primary customer care specialist to a significant other at home: No Alcohol intake: never Patient Tobacco Use Status: Former Tobacco user Tobacco use type: Cigarette e-Cigarette/Vaping Use: Never Used service: No Current occupational status: retired Cognitive needs: No Hearing needs: Yes Vision needs: Yes Review of Systems Const All systems reviewed & are unremarkable except as noted in HPI and below Eyes Reports no additional complaints ENT Reports no additional complaints Card Denies chest pain, Denies irregular heart rhythm and Denies leg edema Resp Reports as per HPI GI Reports no additional complaints Reports other (Being treated for BPH) Musc Reports no additional complaints Skin/Breast Reports system reviewed and no additional complaints, except as documented Neuro Reports no additional complaints Psych Reports no additional complaints Physical Exam Vital Signs: Last Vital Signs Pulse 58 12/08/23 10:03 BP 122/70 12/08/23 10:03 Pulse Ox 98 12/08/23 10:03 Oxygen Delivery Method Room Air 12/08/23 10:03 BMI result Body Mass Index 24.8 Const General: healthy appearing (He is of a thin build, but looks physically active.), comfortable, no acute distress, alert and awake Orientation/consciousness: patient oriented x3 HEENT Head: Yes normal to inspection General nose exam: No nasal polyps present and No nasal discharge present Face and sinus: Yes sinuses nontender Mouth: oropharynx normal Throat: Yes posterior oropharynx normal Eyes General: appearance normal, both eyes and all related structures Neck Neck: Yes normal visual inspection, Yes no lymphadenopathy, Yes trachea midline and Yes JVD (Prominent right jugular vein when he is talking) Thyroid: Thyroid normal Chest Chest palpation & inspection: normal inspection of the chest, normal palpation of entire chest wall and no tenderness Resp Other: Percussion note hyper-resonant,. Breath sounds are distant on both sides with prolonged expiratory phase. No definite wheezes or crepitations heard. Cardio Palpation: normal PMI Rate: regular rate Rhythm: regular rhythm Heart sounds: no gallops and no murmurs Peripheral pulses: Peripheral pulses 2+ throughout GI Palpation (GI): Soft to palpation, nontender, No hepatosplenomegaly present and no masses Auscultation: normal bowel sounds Back/Spine/Pelvis Thoracic/Lumbar Spine: thoracic and lumbar spine normal to inspection Skin General skin exam: no rashes or lesions noted Neuro General: patient oriented x3 and no focal motor deficits Cranial nerves: Yes CN's II-XII intact bilaterally Extrem General: Yes normal to inspection, Yes no clubbing, cyanosis or edema and Yes no calf tenderness Psych Appearance: grossly normal and well kempt Speech and movement: Normal speech and movement present Assessment & Plan Assessment & Plan (1) COPD, severe: Comment: Chronic obstructive pulmonary disease, remains well controlled with his current regimen. He is very careful and has not gotten any respiratory infection in the past 1 year. Code(s): J44.9 - Chronic obstructive pulmonary disease, unspecified Category: Medical Plan: MEDS : Continue WIXELA 250-50 1 inhalation b.i.d.. Albuterol HFA 2 puffs Q 6 hours only p.r.n. Coding Level of Care Code Est Pt Level 3 (69478) Diagnoses COPD, severe J44.9
== END 2023-12-08 10:34 | disposition home or self-care (01) ==
PROVIDERS: PCP Internal Medicine; Visit Provider Internal Medicine
DX: J44.9 Chronic obstructive pulmonary disease, unspecified (principal)
CPT/HCPCS: 99213

== ENCOUNTER → 2023-12-08 09:41 | Outpatient (BNVA) | payer MEDICARE, MEDICAID, SELFPAY | PROVIDERS: PCP Internal Medicine; Visit Provider Internal Medicine | DX: J44.9 Chronic obstructive pulmonary disease, unspecified (principal) | CPT/HCPCS: 99212 ==

== ENCOUNTER 2023-12-09 07:04 | Outpatient (AMB) | payer MEDICARE, MEDICAID, SELFPAY ==
--- NOTE | 2023-12-09 07:29 | A.OFFPC_ITS ---
Intake Visit Reasons: Discuss Nerve Study~ [phone] Allergies DRYER SHEETS Allergy (Intermediate, Uncoded 12/08/23 10:35) HIVES Medication List - Last Reconciled 12/09/23 by Mikael Sue MD finasteride 5 mg PO .MWF 90 days fluticasone propion-salmeterol 250-50 mcg/dose (Wixela Inhub) 1 inh inhalation BID 30 days naproxen 500 mg PO BID PRN 30 days Tobacco use date assessed: 10/07/23 Dental Screening Dental Screen Date: 10/07/23 HPI Discuss Nerve Study~ [phone] HPI Details Patient is 68-year-old gentleman this is a telemedicine conference to go over his nerve conduction study Patient was complaining of burning sensation in his feet Report states 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 Follow-up 3 months ON LICENSE OF [facility] Medical History Hereditary hemochromatosis Surgical History No pertinent past surgical history Social History Household Members: Significant Other Housing: Other (mobile home) Housing Other:: trailor Are you a primary pet caretaker to a significant other at home: No Alcohol intake: never Patient Tobacco Use Status: Former Tobacco user Tobacco use type: Cigarette e-Cigarette/Vaping Use: Never Used service: No Current occupational status: retired Cognitive needs: No Hearing needs: Yes Vision needs: Yes Questionnaire Thrive Questionnaire Date Thrive assessed: 03/13/21 RITU-7 AMB Questionnaire RITU-7 Date RITU - 7 assessed: 11/01/23 Source: Developed by Drs. Ck Martinez, Juju Murray, Juancho Guzman and colleagues, with an educational yenny from [employer]. Review of Systems Const Denies chills and Denies fever(s) ENT Denies epistaxis and Denies nasal discharge Card Denies chest pain Resp Denies chest congestion, Denies cough and Denies hemoptysis GI Denies diarrhea and Denies nausea Skin/Breast Denies rash Neuro Reports no additional complaints Psych Reports no additional complaints Endo Reports no additional complaints Physical exam (Primary Care) Tobacco/Smoking Status: Tobacco use Status Tobacco use date assessed 10/07/23 12/09/23 07:31 Patient Tobacco Use Status Former Tobacco user 12/09/23 07:31 Tobacco use type Cigarette 12/09/23 07:31 e-Cigarette/Vaping Use Never Used 12/09/23 07:31 Thrive Assessment: Date of Thrive Assessment Date Thrive assessed 03/13/21 12/09/23 07:31 Telehealth Telehealth Telehealth Platform: [employer] Location of provider rendering services: practice address Location of patient: address on file Patient Identification confirmed using: Name, : Yes Telehealth method: video (Attempted) Patient verbally consented to treatment: Yes Patient verbally consented to billing insurance company: Yes Patient informed of any privacy concerns related to visit: Yes Assessment and Plan Assessment & Plan (1) Neuropathy, peripheral axonal: Code(s): G62.89 - Other specified polyneuropathies Plan Patient is 68-year-old gentleman this is a telemedicine conference to go over his nerve conduction study Patient was complaining of burning sensation in his feet Report states 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 Follow-up 3 months Medications: New gabapentin 200 mg (2 x 100 mg) PO BEDTIME 180 caps 0RF 90 days Coding Level of Care Code Tele Est Pt Level 3 (08504) Diagnoses Neuropathy, peripheral axonal G62.89
== END 2023-12-09 07:48 | disposition home or self-care (01) ==
LOC: HO.HMGC 07:04
PROVIDERS: PCP Internal Medicine; Visit Provider Internal Medicine
DX: G62.89 Other specified polyneuropathies (principal)
CPT/HCPCS: 99213

== ENCOUNTER 2023-12-28 08:52 | Outpatient (REF) | payer MEDICARE, MEDICAID, SELFPAY | END 2023-12-28 08:53 | disposition home or self-care (01) | LOC: HO.BBR 08:52 | PROVIDERS: PCP Internal Medicine; Visit Provider Internal Medicine | DX: Z13.89 Encounter for screening for other disorder (principal) ==

== ENCOUNTER 2024-01-03 13:18 | Outpatient (AMB) | payer MEDICARE, MEDICAID, SELFPAY ==
--- NOTE | 2024-01-03 13:29 | MHC.OFFWIV ---
Intake Vital Signs 01/03/24 13:30 Height 5 ft 11 in Weight 176 lb BMI 24.5 BP 136/84 Blood Pressure Location Rt brachial Pulse 79 Pulse Source Pulse Oximeter Temp 98.2 F Temp Source Oral Pulse Oximetry (%) 97 Oxygen Delivery Method Room Air Intake Visit Reasons: EP elevated bp Intake Note: pt here c/o elevated Blood pressure Patient Tobacco Use Status: Former Tobacco user Allergies DRYER SHEETS Allergy (Intermediate, Uncoded 01/03/24 13:29) HIVES Do you need a note to return to daycare/school/sports/work: No HPI HPI Comments History of Present Illness Details Patient is a 68yo M with hx of hemochromatosis who presents to office with concern elevated BP He was seen at [facility] yesterday for his annual appointment with hematology Patient had a blood pressure of 179/100 yesterday He denies any anxiety prior to BP ysterday. No cigarette smoking prior to. + coffee prior to appointment They recommended follow up with PCP Unable to get in with PCP so he came here today He states he has been feeling well No CP or SOB Pt denies dizziness, lightheadedness that is changed from baseline; he said only with quickly standing up and down but this as been ongoing for a while and only sometimes happens [facility] Medical History Hereditary hemochromatosis Surgical History No pertinent past surgical history Social History Household Members: Significant Other Housing: Other (mobile home) Housing Other:: trailor Are you a primary direct care worker to a significant other at home: No Alcohol intake: never Patient Tobacco Use Status: Former Tobacco user Tobacco use type: Cigarette e-Cigarette/Vaping Use: Never Used service: No Current occupational status: retired Cognitive needs: No Hearing needs: Yes Vision needs: Yes Review of Systems Const Denies chills and Denies fever(s) Eyes Denies blurry vision ENT Denies dizziness and Denies sore throat Card Denies chest pain, Denies syncope, Denies rapid heart rate and Denies dyspnea (none from baseline copd) Resp Denies cough and Denies dyspnea (none from baseline copd) GI Denies vomiting Neuro Denies dizziness and Denies syncope Physical Exam Vital Signs: Last Vital Signs Temp 98.2 F 01/03/24 13:30 Pulse 79 01/03/24 13:30 BP 136/84 01/03/24 13:30 Pulse Ox 97 01/03/24 13:30 Oxygen Delivery Method Room Air 01/03/24 13:30 BMI result Body Mass Index 24.5 General: Non-toxic, NAD. Speaking full sentences. Skin: Warm dry throughout Eye: EOMI HENT: Airway patent. Uvula midline. No pharyngeal erythema or edema. 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 Hearing aids present Respiratory: CTA bilaterally. No wheezes, rales or rhonchi Cardiac: RRR. No murmur MSK: Full ROM extremities. Neurology: A/O. No aphasia or facial droop. Gait without abnormality Psych: Good mood and affect Assessment & Plan Assessment & Plan (1) Blood pressure check: Code(s): Z01.30 - Encounter for examination of blood pressure without abnormal findings Plan: Patient seen and evaluated. BP stable in office Will monitor twice a week Has pcp follow up on I wrote down his two BPs and he will keep log for PCP Patient gave verbal understanding and had no additional questions or concerns at time of discharge All questions answered Coding Level of Care Code Est Pt Level 3 (70653) Diagnoses Blood pressure check Z01.30
[2024-01-03 13:30] VITALS: BP 136/84; PULSE 79; TEMP 36.8; O2SAT 97; BMI 24.5
== END 2024-01-03 14:23 | disposition home or self-care (01) ==
PROVIDERS: PCP Internal Medicine; Visit Provider Physician Assistant
DX: Z01.30 Encounter for examination of blood pressure without abnormal findings (principal)
CPT/HCPCS: 99213

== ENCOUNTER → 2024-01-05 08:07 | Outpatient (BNVA) | payer MEDICARE, MEDICAID, SELFPAY | PROVIDERS: PCP Internal Medicine; Referring Provider Internal Medicine; Visit Provider Nurse Practitioner ==

== ENCOUNTER 2024-01-20 13:34 | Outpatient (AMB) | payer MEDICARE, MEDICAID, SELFPAY ==
--- NOTE | 2024-01-20 13:38 | A.OFFPC_ITS ---
Vital Signs 01/20/24 13:40 Height 5 ft 11 in Weight 174 lb BMI 24.3 BP 134/78 Blood Pressure Location Lt brachial Position Sitting Pulse 70 Pulse Source Pulse Oximeter Pulse Oximetry (%) 96 Oxygen Delivery Method Room Air Intake Visit Reasons: High BP Allergies DRYER SHEETS Allergy (Intermediate, Uncoded 01/20/24 13:40) HIVES Medication List - Last Reconciled 01/20/24 by Mikael Sue MD finasteride 5 mg PO .MWF 90 days fluticasone propion-salmeterol 250-50 mcg/dose (Wixela Inhub) 1 inh inhalation BID 30 days naproxen 500 mg PO BID PRN 30 days Tobacco use date assessed: 10/07/23 Dental Screening Dental Screen Date: 10/07/23 HPI High BP HPI Details Patient is 69-year-old gentleman came in today to be evaluated for possible hypertension He was seen in Hematology office early this month and his blood pressure was in 170s He is monitoring his blood pressure home at home as well His readings are running in 130s systolic Explained to patient that it could be because he was anxious or he has taken too much salt I see naproxen in his medication list as well that can also raise blood pressure I would continue to monitor at this time patient was encouraged to check blood pressure at least twice a week and keep a log If it starts running above 140 top number then he is to get back to me. He has neuropathy peripheral, gabapentin was prescribed which caused itching so he stopped Patient says that neuropathy is not bothering him. [facility] Medical History Colon cancer screening Medicare annual wellness visit, initial Skin cancer screening Blood pressure check Hereditary hemochromatosis Surgical History H/O eye surgery Hx of tonsillectomy H/O: vasectomy No pertinent past surgical history Social History Household Members: Significant Other Housing: Other (mobile home) Housing Other:: trailor Are you a primary palliative care nurse practitioner to a significant other at home: No Alcohol intake: never Patient Tobacco Use Status: Former Tobacco user Tobacco use type: Cigarette e-Cigarette/Vaping Use: Never Used service: No Current occupational status: retired Cognitive needs: No Hearing needs: Yes Vision needs: Yes Questionnaire Thrive Questionnaire Date Thrive assessed: 03/13/21 RITU-7 AMB Questionnaire RITU-7 Date RITU - 7 assessed: 11/01/23 Source: Developed by Drs. Ck Martinez, Juju Murray, Juancho Guzman and colleagues, with an educational yenny from [employer]. Review of Systems Const Denies chills and Denies fever(s) ENT Denies epistaxis and Denies nasal discharge Card Denies chest pain Resp Denies chest congestion, Denies cough and Denies hemoptysis GI Denies diarrhea and Denies nausea Skin/Breast Denies rash Neuro Reports no additional complaints Psych Reports no additional complaints Endo Reports no additional complaints Physical exam (Primary Care) Vital Signs: Last Vital Signs Pulse 70 01/20/24 13:40 BP 134/78 01/20/24 13:40 Pulse Ox 96 01/20/24 13:40 Oxygen Delivery Method Room Air 01/20/24 13:40 BMI result Body Mass Index 24.3 Tobacco/Smoking Status: Tobacco use Status Tobacco use date assessed 10/07/23 01/20/24 13:38 Patient Tobacco Use Status Former Tobacco user 01/20/24 13:38 Tobacco use type Cigarette 01/20/24 13:38 e-Cigarette/Vaping Use Never Used 01/20/24 13:38 Thrive Assessment: Date of Thrive Assessment Date Thrive assessed 03/13/21 01/20/24 13:38 Const General: cooperative, comfortable and no acute distress Orientation/consciousness: patient oriented x3 HENMT Head: Yes normocephalic Eyes General: appearance normal, both eyes and all related structures Neck Neck: Yes supple Resp Effort & Inspection: normal respiratory effort, no cough and no stridor Cardio Rhythm: regular rhythm Heart sounds: S1 normal heart sound present and S2 normal heart sound present Skin General skin exam: turgor normal Neuro General: patient oriented x3, tone normal and moves all extremities Extrem Right lower extremity: no edema Left lower extremity: no edema Assessment and Plan Assessment & Plan (1) Labile blood pressure: Code(s): R09.89 - Other specified symptoms and signs involving the circulatory and respiratory systems (2) Paresthesia of lower extremity: Code(s): R20.2 - Paresthesia of skin (3) Hard of hearing: Code(s): H91.90 - Unspecified hearing loss, unspecified ear Plan Patient is 69-year-old gentleman came in today to be evaluated for possible hy pertension He was seen in Hematology office early this month and his blood pressure was in 170s He is monitoring his blood pressure home at home as well His readings are running in 130s systolic Explained to patient that it could be because he was anxious or he has taken too much salt I see naproxen in his medication list as well that can also raise blood pressure I would continue to monitor at this time patient was encouraged to check blood pressure at least twice a week and keep a log If it starts running above 140 top number then he is to get back to me. He has neuropathy peripheral, gabapentin was prescribed which caused itching so he stopped Patient says that neuropathy is not bothering him. He is very hard of hearing Coding Level of Care Code Est Pt Level 3 (07251) Diagnoses Labile blood pressure R09.89 Paresthesia of lower extremity R20.2 Hard of hearing H91.90
[2024-01-20 13:40] VITALS: BP 134/78; PULSE 70; O2SAT 96; BMI 24.3
== END 2024-01-20 14:27 | disposition home or self-care (01) ==
PROVIDERS: PCP Internal Medicine; Visit Provider Internal Medicine
DX: R09.89 Other specified symptoms and signs involving the circulatory and respiratory systems (principal); R20.2 Paresthesia of skin; H91.90 Unspecified hearing loss, unspecified ear
CPT/HCPCS: 99213

== ENCOUNTER 2024-03-01 08:36 | Outpatient (AMB) | payer MEDICARE, MEDICAID, SELFPAY ==
[2024-03-01 08:56] VITALS: BP 154/71; PULSE 48; O2SAT 99; BMI 24.5
--- NOTE | 2024-03-01 08:56 | A.OFFVIS_ITS ---
Vital Signs 03/01/24 08:56 Height 5 ft 11 in Weight 175 lb 7.807 oz BMI 24.5 BP 154/71 H Blood Pressure Location Lt brachial Position Sitting Pulse 48 L Pulse Source Pulse Oximeter Pulse Oximetry (%) 99 Oxygen Delivery Method Room Air Intake Visit Reasons: 8 week follow up Intake Note: Erick presents to in office today in follow up of Cologuard. CC: Patient reports doing well and denies having any GI symptoms or concerns today. Patient states having trouble hearing because his hearing aids stopped working and he does not have any right now. Sack Sewer Required: No Accompanied by: Self / Same As Patient Allergies No Known Drug Allergies Allergy (Unknown, Verified 03/01/24 09:08) none DRYER SHEETS Allergy (Intermediate, Uncoded 01/20/24 13:40) HIVES HPI HPI 8 week follow up: Details: Assessment & Plan (1) Colon cancer screening: Comment: 2015 scope= negative study, Shah repeat in 10 years Code(s): Z12.11 - Encounter for screening for malignant neoplasm of colon Category: Medical (2) Hx of colonoscopy: Code(s): Z98.890 - Other specified postprocedural states Plan He is not technically due until 2025, and he has no sx or FHX of CRC or polyps. We discuss Cologuard and he is agreeable. 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 Return office visit in 8 weeks to review Cologuard results TODAY'S VISIT COLOGUARD WAS NEGATIVE. WE WILL REPEAT THIS IN 3 YEARS AND HE IS AWARE THAT WE WILL PUT HIM ON A RECALL LIST. [facility]LY [facility], [facility] Medical History (Updated 03/01/24 @ 09:24 by WAYLON Romero) Colon cancer screening Medicare annual wellness visit, initial Skin cancer screening Blood pressure check Hereditary hemochromatosis Surgical History H/O eye surgery Hx of tonsillectomy H/O: vasectomy No pertinent past surgical history Social History Household Members: Significant Other Housing: Other (mobile home) Housing Other:: trailor Are you a primary insurance healthcare representative to a significant other at home: No Alcohol intake: never Patient Tobacco Use Status: Former Tobacco user Tobacco use type: Cigarette e-Cigarette/Vaping Use: Never Used service: No Current occupational status: retired Cognitive needs: No Hearing needs: Yes Vision needs: Yes Review of Systems Const Denies fatigue, Denies fever(s), Denies night sweats, Denies poor appetite and Denies weight loss ENT Reports Normal hearing present, Denies dental pain, Denies dysphagia, Denies hearing loss, Denies mouth pain, Denies odynophagia, Denies throat swelling, Denies tongue swelling and Reports other (Dentition adequate) Card Reports no additional complaints Resp Reports no additional complaints GI Details: Denies abdominal pain, Denies melena, Denies bloating, Denies hematochezia, Denies constipation, Denies GI cramping, Denies dysphagia, Denies excessive flatus, Denies early satiety, Denies heartburn, Denies diarrhea, Denies nausea, Denies odynophagia, Denies vomiting and Denies hematemesis Skin/Breast Denies pruritus, Denies lesions, Denies rash and Denies jaundice Neuro Reports Normal hearing present and Denies Abnormal speech present Endo Denies fatigue Aller/Immun Denies throat swelling and Denies tongue swelling Physical Exam Vital Signs: Last Vital Signs Pulse 48 L 03/01/24 08:56 BP 154/71 H 03/01/24 08:56 Pulse Ox 99 03/01/24 08:56 Oxygen Delivery Method Room Air 03/01/24 08:56 BMI result Body Mass Index 24.5 Const General: cooperative Nutritional Appearance: well nourished and thin Orientation/consciousness: oriented to person, oriented to place and oriented to time Limitations: No language barrier HEENT Head: Yes normocephalic and Yes atraumatic Eyes General: appearance normal, both eyes and all related structures Pupils: Equal, round and reactive pupils present Neck Neck: Yes normal visual inspection and Yes no lymphadenopathy Thyroid: Thyroid normal Resp Effort & Inspection: normal respiratory effort and able to speak in complete sentences Auscultation: clear to auscultation bilaterally GI Rectal Exam - Male: Yes deferred Skin General skin exam: no rashes or lesions noted, turgor normal, skin not dry, no jaundice, No spider nevi and no striae Rashes: no rashes Nails: normal Neuro General: oriented to person, oriented to place and oriented to time Cranial nerves: Yes Equal, round and reactive pupils present and Yes Normal hearing present Speech: No Abnormal speech present Extrem General: Yes normal to inspection, No clubbing, No cyanosis and No edema Psych Appearance: grossly normal and well kempt Mental Status: mental status grossly normal Speech and movement: Normal speech and movement present Affect: normal affect Attitude: cooperative Thought process: Normal thought process present and not confabulating Thought content: Normal thought content present Insight: Good insight present (Psych) Judgement: Good judgement present (Psych) Assessment & Plan Assessment & Plan (1) Colon cancer screening: Comment: 01/2025 COLOGUARD NEGATIVE; REPEAT IN 3 YEARS; 2016 scope= negative studyPablo repeat in 10 years Code(s): Z12.11 - Encounter for screening for malignant neoplasm of colon Category: Medical Plan COLOGUARD WAS NEGATIVE. WE WILL REPEAT THIS IN 3 YEARS AND HE IS AWARE THAT WE WILL PUT HIM ON A RECALL LIST. Coding Level of Care Code Est Pt Level 3 (70427) Diagnoses Colon cancer screening Z12.11
== END 2024-03-01 09:26 | disposition home or self-care (01) ==
PROVIDERS: PCP Internal Medicine; Visit Provider Nurse Practitioner
DX: Z12.11 Encounter for screening for malignant neoplasm of colon (principal)
CPT/HCPCS: 99024

== ENCOUNTER → 2024-03-01 08:36 | Outpatient (BNVA) | payer MEDICARE, MEDICAID, SELFPAY | PROVIDERS: PCP Internal Medicine; Visit Provider Nurse Practitioner | DX: Z71.2 Person consulting for explanation of examination or test findings (principal) | CPT/HCPCS: 99212 ==

== ENCOUNTER 2024-04-02 14:59 | Outpatient (AMB) | payer MEDICARE, MEDICAID, SELFPAY ==
--- NOTE | 2024-04-02 15:18 | MHC.OFFVIS ---
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 Sue. He has a PMH of COPD and hemochromatosis. He presents to the office today for follow-up of his lower urinary tract symptoms. In discussion with the patient today reports to be doing and feeling well. He reports since his last office visit here approximately 5 months ago he has had no bothersome urinary issues or concerns. During last office visit patient had an office cystoscopy with Dr. Arriaza prostatic urethra nonobstructive, bladder no suspicious bladder lesions visualized. He continues to report weak urinary stream however has previously trialed Flomax, alfuzosin, and low-dose Cialis it did not find these medications helpful. He does not feel weak urinary stream is bothersome. In office urinalysis results reviewed with the patient today. PVR 51ml's. Previous workup has also included a retroperitoneal ultrasound noting right kidney with no calculi or hydronephrosis. Multiple peripelvic cysts largest measuring 1.7 cm in the mid pole. No imaging follow-up is recommended per radiology report. Left kidney with no calculi or hydronephrosis. Multiple peripelvic cysts. No imaging follow-up is recommended per radiology report. The bladder is well distended and normal. Pre void bladder volume is approximately 450 mL. Postvoid bladder volume is approximately 160 mL. Prostate volume is approximately 20 mL. PSA 02/06--0.1. He otherwise denies urinary urgency, urinary frequency, incontinence, nocturia, hematuria, dysuria, foul smelling urine, flank pain, fever, and or chills. He does report erectile dysfunction at times however does not find this bothersome as he has not sexually active. He otherwise offers no other issues or concerns at this time. [facility], LAT[facility] Medical History Colon cancer screening Medicare annual wellness visit, initial Skin cancer screening Blood pressure check Hereditary hemochromatosis Surgical History H/O eye surgery Hx of tonsillectomy H/O: vasectomy No pertinent past surgical history Social History Household Members: Significant Other Housing: Other (mobile home) Housing Other:: trailor Are you a primary respiratory care practitioner to a significant other at home: No Alcohol intake: never Patient Tobacco Use Status: Former Tobacco user Tobacco use type: Cigarette e-Cigarette/Vaping Use: Never Used service: No Current occupational status: retired Cognitive needs: No Hearing needs: Yes Vision needs: Yes Review of Systems Const All systems reviewed & are unremarkable except as noted in HPI and below Eyes Reports no additional complaints ENT Reports no additional complaints Card Denies chest pain, Denies irregular heart rhythm and Denies leg edema Resp Reports as per HPI GI Reports no additional complaints Reports other (Being treated for BPH) Musc Reports no additional complaints Skin/Breast Reports system reviewed and no additional complaints, except as documented Neuro Reports no additional complaints Psych Reports no additional complaints Kirit/Lymph Reports as per HPI Physical Exam Const General: cooperative, healthy appearing, comfortable, no acute distress, well developed, alert and awake Orientation/consciousness: patient oriented x3 Limitations: no limitations HEENT Head: Yes normal to inspection, Yes normocephalic and Yes atraumatic Ears: hearing grossly normal bilaterally (bilateral hearing aids present ) Eyes General: appearance normal, both eyes and all related structures Neck Neck: Yes normal visual inspection and Yes trachea midline Chest Chest palpation & inspection: normal inspection of the chest Resp Effort & Inspection: normal respiratory effort and able to speak in complete sentences Cardio Rate: regular rate GI Inspection: Yes normal to inspection General: Yes no CVA tenderness Back/Spine/Pelvis Back: no CVA tenderness Skin General skin exam: no rashes or lesions noted Neuro General: patient oriented x3 Extrem General: Yes normal to inspection Psych Appearance: grossly normal and well kempt Mental Status: mental status grossly normal Speech and movement: Normal speech and movement present and Clear speech present Affect: normal affect Attitude: cooperative Thought process: Normal thought process present Thought content: Normal thought content present Insight: Fair insight present (Psych) Judgement: Fair judgement present (Psych) Office Procedures Post Void Residual Post Residual Void Post Void Residual (PVR): 51 [id number] Void Residual by ultrasound Results AMB Urinalysis, Automated UA Leukoctes 0 Chente/uL Last Edit by [employer] on 04/02/24 15:27 UA Nitrite Last Edit by [employer] on 04/02/24 15:27 UA Urobilinogen 0.2 mg/dL Last Edit by [employer] on 04/02/24 15:27 UA Protein 0 mg/dL Last Edit by [employer] on 04/02/24 15:27 UA pH 6.0 Last Edit by [employer] on 04/02/24 15:27 UA Blood 0 Porter/uL Last Edit by [employer] on 04/02/24 15:27 UA Specific Vestal 1.015 Last Edit by [employer] on 04/02/24 15:27 UA Ketone Last Edit by [employer] on 04/02/24 15:27 UA Bilirubin 0 mg/dL Last Edit by [employer] on 04/02/24 15:27 UA Glucose 0 mg/dL Last Edit by [employer] on 04/02/24 15:27 Results Reviewed Results Reviewed: Laboratory Last Values Urine pH (Auto) 6.0 04/02/24 15:26 Specific Vestal (Auto) 1.015 04/02/24 15:26 Urine Protein (Auto) 0 mg/dL 04/02/24 15: Glucose (UA)(Auto) 0 mg/dL 04/02/24 15: Urine Blood (Auto) 0 Porter/uL 04/02/24 15:26 Urine Bilirubin (Auto) 0 mg/dL 04/02/24 15:26 Urine Urobilinogen (Auto) 0.2 mg/dL 04/02/24 15:26 Leukocyte Esterase (Auto) 0 Chente/uL 04/02/24 15:26 Assessment & Plan Assessment & Plan (1) Erectile dysfunction: Code(s): N52.9 - Male erectile dysfunction, unspecified Category: Medical (2) Parapelvic renal cyst: Code(s): N28.1 - Cyst of kidney, acquired Category: Medical (3) Weak urinary stream: Code(s): R39.12 - Poor urinary stream Category: Medical Plan In office urinalysis results reviewed with the patient today; as noted above. PVR 51 mL. Patient does continue to report weak urinary stream however does not find this bothersome. He has trialed multiple urological modifications with no improvement. Previous cystoscopy noted no obstructive prostatic or urethra involvement. We discussed at length further treatment options for weak urinary stream. Will continue with surveillance monitoring Continue finasteride 3 times per week as discussed. Will obtain PSA in 6 months. Follow-up in 6 months with lab to be completed prior and PVR at next office visit or sooner with any issues, concerns, and or questions. Orders: Orders AMB Post Void Residual by ultrasound Today R39.12 - Poor urinary stream Prostate Specific Antigen 6 Months N40.1 - Benign prostatic hyperplasia with lower urinary tract symptoms, R35.1 - Nocturia, R39.12 - Poor urinary stream AMB Urinalysis Automated Today Z13.9 - Encounter for screening, unspecified Patient Instructions: The patient had an opportunity to ask questions regarding the treatment plan. All questions were answered. Physical exam, labs, and imaging were discussed and reviewed in detail. As well as risks, benefits, and discussion of treatment choices. No major barriers to understanding were identified. The patient expressed understanding and agreement with the above treatment plan. The patient was made aware they should contact our office by phone for worsening of their current condition, the appearance of new symptoms, or with any questions or concerns. Compliance is encouraged with any medications and follow up testing that is ordered. It is a privilege to be allowed the opportunity to participate in? your urological care.? Again, if you have any questions or concerns If you have any questions or concerns please do not hesitate to contact me. The office is [phone]. This note is constructed using voice recognition software. While every effort has been made to ensure accuracy hogshead builder errors may have been included. Yours sincerely, RENATE Childers Coding Level of Care Code Est Pt Level 3 (60390) Complex EM visit Add On G2211 Diagnoses Erectile dysfunction N52.9 Parapelvic renal cyst N28.1 Weak urinary stream R39.12 CPT Codes Post Residual Void - PVR CPT Code: 09002-Bqhx Void Residual by ultrasound ([id number])
== END 2024-04-02 15:52 | disposition home or self-care (01) ==
PROVIDERS: PCP Internal Medicine; Visit Provider Nurse Practitioner Family
DX: N52.9 Male erectile dysfunction, unspecified (principal); N28.1 Cyst of kidney, acquired; R39.12 Poor urinary stream; Z13.9 Encounter for screening, unspecified
CPT/HCPCS: 99213; G2211

== ENCOUNTER → 2024-04-02 14:59 | Outpatient (BNVA) | payer MEDICARE, MEDICAID, SELFPAY | PROVIDERS: PCP Internal Medicine; Visit Provider Nurse Practitioner Family | DX: R39.12 Poor urinary stream (principal); N52.9 Male erectile dysfunction, unspecified; N28.1 Cyst of kidney, acquired | CPT/HCPCS: 51798; 81003; 99212 ==

== ENCOUNTER 2024-06-05 09:09 | Outpatient (REF) | payer MEDICARE, MEDICAID, SELFPAY ==
--- NOTE | ~2024-06-05 | XR_ITS ---
EXAMINATION: XR CHEST CLINICAL INFORMATION: Low back pain, unspecified M54.50. COMPARISON: XR Chest 10/07/2021 TECHNIQUE: 2 views of the chest were obtained. FINDINGS: No significant abnormality is noted involving the heart, lungs, mediastinum, bony thorax or soft tissues. XR/XR chest 2V IMPRESSION: No acute disease Electronically signed by: Richard Argueta MD 07/10/2024 02:49 PM [facility] [place]
== END 2024-06-05 09:10 | disposition home or self-care (01) ==
LOC: HO.XRAY 09:09
PROVIDERS: PCP Internal Medicine; Visit Provider Internal Medicine
DX: M54.50 Low back pain, unspecified (principal); M54.6 Pain in thoracic spine; J44.9 Chronic obstructive pulmonary disease, unspecified
CPT/HCPCS: 71046; 72100; 99212

== ENCOUNTER 2024-06-05 09:09 | Outpatient (AMB) | payer MEDICARE, MEDICAID, SELFPAY ==
[2024-06-05 09:14] VITALS: BP 140/72; PULSE 52; O2SAT 99; BMI 25.1
--- NOTE | 2024-06-05 09:14 | MHC.OFFVIS ---
Vital Signs 06/05/24 09:14 Height 5 ft 11 in Weight 179 lb 10.828 oz BMI 25.1 BP 140/72 H Blood Pressure Location Lt brachial Position Sitting Pulse 52 Pulse Source Pulse Oximeter Pulse Oximetry (%) 99 Oxygen Delivery Method Room Air Intake Visit Reasons: copd Intake Note: pt is here for follow up and states he is having a pain on the right side bottem of ribs, and he feels this when he breath deep. Chairman Required: No Allergies No Known Drug Allergies Allergy (Unknown, Verified 06/05/24 09:36) none DRYER SHEETS Allergy (Intermediate, Uncoded 06/05/24 09:36) HIVES Medication List - Last Reconciled 06/05/24 by Kyle Wilder MD finasteride 5 mg PO .MWF 90 days fluticasone propion-salmeterol 250-50 mcg/dose (Wixela Inhub) 1 inh inhalation BID 30 days naproxen 500 mg PO BID PRN 30 days Do you need a note to return to daycare/school/sports/work: No HPI HPI copd: Details: This 69 years old very pleasant and physically active gentleman, comes for 6 months follow-up for his COPD. Pulmonary martinez he has remained very stable and has not contracted any acute infection. Uses Wixela 250-50 usually once a day but if symptoms get worse than twice a day. He does have albuterol inhaler for p.r.n. use but hardly needs to use it. He remains very active and does hiking once or twice a week. There is no history of any recent fall. Complains of right thoracic cold lumbar area pain, for the last 2 weeks or so. He denies falling down or hurting his back or chest wall. It is possible that he may have strained his back muscles 1 hiking. He has no difficulty in taking deep breaths. The discomfort gets aggravated buys bending down or trying to lift something. [facility] Medical History Back pain of thoracolumbar region Colon cancer screening Medicare annual wellness visit, initial Skin cancer screening Blood pressure check Hereditary hemochromatosis Surgical History H/O eye surgery Hx of tonsillectomy H/O: vasectomy No pertinent past surgical history Social History Household Members: Significant Other Housing: Other (mobile home) Housing Other:: trailor Are you a primary senior care assistant to a significant other at home: No Alcohol intake: never Patient Tobacco Use Status: Former Tobacco user Tobacco use type: Cigarette e-Cigarette/Vaping Use: Never Used service: No Current occupational status: retired Cognitive needs: No Hearing needs: Yes Vision needs: Yes Review of Systems Const All systems reviewed & are unremarkable except as noted in HPI and below Eyes Reports no additional complaints ENT Reports no additional complaints Card Denies chest pain, Denies irregular heart rhythm and Denies leg edema Resp Reports as per HPI GI Reports no additional complaints Reports other (Being treated for BPH) Musc Reports no additional complaints Skin/Breast Reports system reviewed and no additional complaints, except as documented Neuro Reports no additional complaints Psych Reports no additional complaints Physical Exam Vital Signs: Last Vital Signs Pulse 52 06/05/24 09:14 BP 140/72 H 06/05/24 09:14 Pulse Ox 99 06/05/24 09:14 Oxygen Delivery Method Room Air 06/05/24 09:14 BMI result Body Mass Index 25.1 Const General: healthy appearing (He is of a thin build, but looks physically active.), comfortable, no acute distress, alert and awake Orientation/consciousness: patient oriented x3 HEENT Head: Yes normal to inspection General nose exam: No nasal polyps present and No nasal discharge present Face and sinus: Yes sinuses nontender Mouth: oropharynx normal Throat: Yes posterior oropharynx normal Eyes General: appearance normal, both eyes and all related structures Neck Neck: Yes normal visual inspection, Yes no lymphadenopathy, Yes trachea midline and Yes JVD (Prominent right jugular vein when he is talking) Thyroid: Thyroid normal Chest Chest palpation & inspection: normal inspection of the chest, normal palpation of entire chest wall and no tenderness Resp Other: Percussion note hyper-resonant,. Breath sounds are distant on both sides with prolonged expiratory phase. No definite wheezes or crepitations heard. Cardio Palpation: normal PMI Rate: regular rate Rhythm: regular rhythm Heart sounds: no gallops and no murmurs Peripheral pulses: Peripheral pulses 2+ throughout GI Palpation (GI): Soft to palpation, nontender, No hepatosplenomegaly present and no masses Auscultation: normal bowel sounds Back/Spine/Pelvis Thoracic/Lumbar Spine: thoracic and lumbar spine normal to inspection, thoraco-lumbar ROM limited and other (There is muscular tenderness, in right thoracolumbar area, ) Skin General skin exam: no rashes or lesions noted Neuro General: patient oriented x3 and no focal motor deficits Cranial nerves: Yes CN's II-XII intact bilaterally Extrem General: Yes normal to inspection, Yes no clubbing, cyanosis or edema and Yes no calf tenderness Psych Appearance: grossly normal and well kempt Speech and movement: Normal speech and movement present Assessment & Plan Assessment & Plan (1) COPD, severe: Comment: Chronic obstructive pulmonary disease, remains well controlled with his current regimen. He is very careful and has not gotten any respiratory infection in the past 1 year. Code(s): J44.9 - Chronic obstructive pulmonary disease, unspecified Category: Medical Plan: Continue to use Wixela 250-51 inhalation b.i.d. , may cut down to once a day symptoms are under control/ Use albuterol HFA 2 puffs Q 6 hours only p.r.n.. (2) Back pain of thoracolumbar region: Comment: He has the muscular tenderness in the right thoracolumbar area, it seems to be muscular pain. Does not seem to be related to lungs. Code(s): M54.50 - Low back pain, unspecified; M54.6 - Pain in thoracic spine Category: Medical Plan: X-ray chest and x-ray of the lumbar spine is ordered. Advised to apply gentle heat 2 or 3 times a day. May use naproxen 500 mg once or twice a day if the pain is more intense. Orders: Orders XR chest 2V Today J44.9 - Chronic obstructive pulmonary disease, unspecified, M54.50 - Low back pain, unspecified, M54.6 - Pain in thoracic spine XR lumbar spine 1V Today J44.9 - Chronic obstructive pulmonary disease, unspecified, M54.50 - Low back pain, unspecified, M54.6 - Pain in thoracic spine Coding Level of Care Code Est Pt Level 3 (06029) Diagnoses COPD, severe J44.9 Back pain of thoracolumbar region M54.50; M54.6
== END 2024-06-05 09:36 | disposition home or self-care (01) ==
PROVIDERS: PCP Internal Medicine; Visit Provider Internal Medicine
DX: J44.9 Chronic obstructive pulmonary disease, unspecified (principal); M54.50 Low back pain, unspecified; M54.6 Pain in thoracic spine
CPT/HCPCS: 99213

== ENCOUNTER 2024-07-20 08:11 | Outpatient (REF) | payer MEDICARE, MEDICAID, SELFPAY | END 2024-07-20 08:12 | disposition home or self-care (01) | LOC: HO.BBR 08:11 | PROVIDERS: PCP Internal Medicine; Visit Provider Internal Medicine | DX: Z13.89 Encounter for screening for other disorder (principal) ==

== ENCOUNTER 2024-09-28 07:57 | Outpatient (REF) | payer MEDICARE, MEDICAID, SELFPAY ==
--- OUTSIDE RECORDS SUMMARY | 2024-09-28 08:01 | XMS_ITS | Clinical Summary ---
Author Organization [facility] ity Address [address] [place] [address] Care Team Providers Care Ict Programmer Name Role Phone Unavailable Primary Care Provider Unavailabl e Social History Tobacco Use Types Packs/Day Years Used Date Smoking Tobacco: Never Assessed Sex and Gender Information Value Date Recorded Sex Assigned at Not on file Legal Sex Male 5:54 AM EST Gender Identity Not on file Sexual Orientation Not on file Plan of Treatment Health Maintenance Due Date Last Done Comments DTaP,Tdap,and Td Vaccines (1 - Tdap) 01/08/1975 Pneumococcal Vaccine: 50+ Ye ars (1 of 1 - PCV) 01/08/2006 Zoster Vaccines (1 of 2) 01/08/2006 COVID-19 Vaccine ( - 2023-2 5 season) 2024 Influenza Vaccine (#1) 2024 RSV Immunization Patients 60 + Years Old (1 - 1-dose 75+ series) 01/08/2031 HIB Vaccines Aged Out No longer eligi ble based on patient's age to complete this topic HPV Vaccines Aged Out No longer eligi ble based on patient's age to complete this topic Hepatitis A Vaccines Aged Out No long er eligible based on patient's age to complete this topic Hepatitis B Vaccines Aged Out No long er eligible based on patient's age to complete this topic IPV Vaccines Aged Out No longer eligi ble based on patient's age to complete this topic MMR Vaccines Aged Out No longer eligi ble based on patient's age to complete this topic Meningococcal ACWY Vaccine Aged Out N o longer eligible based on patient's age to complete this topic Meningococcal B Vacine Aged Out No lo nger eligible based on patient's age to complete this topic RSV Immunization Patients Un timi 20 months Aged Out No longer eligible b ased on patient's age to complete this topic Varicella Vaccines Aged Out No longer eligible based on patient's age to complete this topic
== END 2024-09-28 07:58 | disposition home or self-care (01) ==
LOC: HO.BBR 07:57
PROVIDERS: PCP Internal Medicine; Visit Provider Internal Medicine
DX: Z13.89 Encounter for screening for other disorder (principal)

== ENCOUNTER 2024-09-28 08:05 | Outpatient (REF) | payer MEDICARE, MEDICAID, SELFPAY ==
[2024-09-28 09:55] LABS: Prostate Specific Antigen 0.17 ng/mL (<0.05-4.0)
== END 2024-09-28 08:06 | disposition home or self-care (01) ==
LOC: HO.LAB 08:05
PROVIDERS: Visit Provider Nurse Practitioner Family
DX: N40.1 Benign prostatic hyperplasia with lower urinary tract symptoms (principal); R39.12 Poor urinary stream; R35.1 Nocturia; Z12.5 Encounter for screening for malignant neoplasm of prostate
CPT/HCPCS: 36415; 84153

== ENCOUNTER 2024-09-28 08:14 | Outpatient (REF) | payer MEDICARE, MEDICAID, SELFPAY | END 2024-09-28 08:15 | disposition home or self-care (01) | LOC: HO.BBR 08:14 | PROVIDERS: Visit Provider Internal Medicine | DX: Z13.89 Encounter for screening for other disorder (principal) ==

== ENCOUNTER 2024-10-01 07:42 | Outpatient (AMB) | payer MEDICARE, MEDICAID, SELFPAY ==
--- OUTSIDE RECORDS SUMMARY | 2024-10-01 07:44 | XMS_ITS | Clinical Summary ---
Author Organization [facility] Address [address] [place] [address] Phone Care Team Providers Care Lunchroom Supervisor Name Role Phone Physician, No Pcp Primary Care Provider Unavaila ble Allergies No known active allergies Medications cephalexin (KEFLEX) 500 mg capsule Take 1 capsule (500 mg total) by mouth 4 (four) times a day for 5 days. 20 each 09/29/2024 Active Active Problems No known active problems Encounters Date Type Department Care Team Description 09/29/2024 3:33 PM EDT - 09/29/2024 5:17 PM EDT Emergency [facility] Emergency [address] [place] [address] Laceration of left thumb without foreign body without damage to nail, initial encounter (Primary Dx) Discharge Disposition: Home or Self Care from Last 3 Months Immunizations Name Administration Dates Next Due Tdap Tetanus diptheria acell ular pertussis (Boostrix; Adacel) 7yo and older 09/29/2024 Social History Tobacco Use Types Packs/Day Years Used Date Smoking Tobacco: Never Assessed Sex and Gender Information Value Date Recorded Sex Assigned at Not on file Legal Sex Male 5:54 AM EST Gender Identity Not on file Sexual Orientation Not on file Obstetrics History Last Filed Vital Signs Vital Sign Reading Time Taken Comments Blood Pressure 138/86 09/29/2024 3:22 PM EDT Pulse 87 09/29/2024 3:22 PM EDT Temperature 36.4 ??C (97.5 ??F) 09/29/2024 3:22 PM ED T Respiratory Rate 18 09/29/2024 3:22 PM EDT Oxygen Saturation 95% 09/29/2024 3:22 PM EDT Inhaled Oxygen Concentration - - Weight 79.4 kg (175 lb) 09/29/2024 3:22 PM EDT Height 180.3 cm (5' 11 ) 09/29/2024 3:22 PM EDT Body Mass Index 24.41 09/29/2024 3:22 PM EDT Plan of Treatment Health Maintenance Due Date Last Done Comments Pneumococcal Vaccine: 50+ Years (1 of 1 - PCV) 01/08/2006 Zoster Vaccines (1 of 2) 01/08/2006 COVID-19 Vaccine (3 - 2023-2 5 season) 2024 08/29/2021, 08/08/2021 Influenza Vaccine (#1) 2024 Abdominal Aortic Aneurysm (AAA) Screen 09/29/2024 Cholesterol Screening (Lipid Panel) 09/29/2024 Colorectal Cancer Screening: Colonoscopy 09/29/2024 Depression Screening 09/29/2024 Falls Risk Assessment 09/29/2024 Hepatitis C Screening 09/29/2024 Medicare Annual Wellness Visit 09/29/2024 Social Influencers of Health Screening 09/29/2024 RSV Immunization Patients 60 + Years Old (1 - 1-dose 75+ series) 01/08/2031 DTaP,Tdap,and Td Vaccines (2 - Td or Tdap) 09/29/2034 09/29/2024 HIB Vaccines Aged Out No longer eligi [...] to complete this topic RSV Immunization Patients Under 20 months Aged Out No longer eligible b ased on patient's age to complete this topic Varicella Vaccines Aged Out No longer eligible based on patient's age to complete this topic Procedures Procedure Name Priority Date/Time Associated Diagnosis Comments ED LACERATION REPAIR Routine 09/29/2024 5:05 PM EDT XR HAND 3+ VIEWS LEFT STAT 09/29/2024 3:41 PM EDT from Last 3 Months Results * Laceration Repair (09/29/2024 5:05 PM EDT) Narrative Trina Hankins DO - 09/29/2024 5:05 PM EDT AGUEDA Araiza ? 09/30/2024 ??7:12 AM Laceration Repair Date/Time: 09/29/2024 5:05 PM Performed by: AGUEDA Araiza Authorized by: Trina Hankins DO ?? Consent: ??Consent obtained: ??Verbal ??Consent given by: ??Patient ??Risks, benefits, and alternatives were discussed: yes ?Risks discussed: ??Infection, poor cosmetic result, poor wound healing and retained foreign body Anesthesia: ??Anesthesia method: ??Nerve block ??Block needle gauge: ??25 G ??Block anesthetic: ??Lidocaine 2% w/o epi ??Block technique: ??Digital ??Block injection procedure: ??Negative aspiration for blood, incremental injection and anatomic landmarks identified ??Block outcome: ??Anesthesia achieved Laceration details: ??Location: ??Finger ??Finger location: ??L thumb ??Length (cm): ??3 ??Depth (mm): ??6 Pre-procedure details: ??Preparation: ??Patient was prepped and draped in usual sterile fashion and imaging obtained to evaluate for foreign bodies Exploration: ??Hemostasis achieved with: ??Direct pressure ??Imaging obtained: x-ray ?Imaging outcome: foreign body not noted ?Wound exploration: wound explored through full range of motion and entire depth of wound visualized ?Wound extent: no underlying fracture noted and no vascular damage noted ?? Treatment: ??Area cleansed with: ??Povidone-iodine ??Amount of cleaning: ??Standard ??Irrigation solution: ??Sterile water and sterile saline ??Irrigation volume: ??80cc ??Irrigation method: ??Pressure wash ??Visualized foreign bodies/material removed: no ?? Skin repair: ??Repair method: ??Sutures ??Suture size: ??4-0 ??Suture material: ??Prolene ??Number of sutures: ??5 (2 additional subcutaneous 4-0 absorbable sutures were placed as well.) Approximation: ??Approximation: ??Loose (Unable to complete approximate due to missing skin and tissue.) Post-procedure details: ??Dressing: ??Non-adherent dressing and antibiotic ointment ??Procedure completion: ??Tolerated well, no immediate complications Trina Hankins DO IN CLINIC/BEDSIDE ORDERAB LES Final Result * XR Hand 3+ Views Left (09/29/2024 3:41 PM EDT) Anatomical Region Laterality Modality Upper Extremities, Hand [facility] 09/29/2024 3:45 PM EDT Impressions 09/29/2024 3:46 PM EDT Marker is noted at the 1st digit that a region of reported injury. ??No bony deformity is noted. ??No radiopaque foreign body. ??Alignment is maintained. 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 -------- FINAL REPORT -------- Dictated By: Sixto Gibson Dictated Date: 09/29/2024 15:45 ET Assigned Physician: Sixto Gibson Reviewed and Electronically Signed By: Sixto Gibson Signed Date: 09/29/2024 15:46 ET Workstation ID: [id number] Transcribed By: Self Edit Transcribed Date: 09/29/2024 15:45 ET Narrative 09/29/2024 3:46 PM EDT PROCEDURE: XR HAND 3+ VIEWS LEFT INDICATION: pain COMPARISON: None Procedure Note Sixto Gibson MD - 09/29/2024 PROCEDURE: XR HAND 3+ VIEWS LEFT INDICATION: pain COMPARISON: None IMPRESSION: Marker is noted at the 1st digit that a region of reported injury. Nobony deformity is noted. No radiopaque foreign body. Alignment ismaintained. 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 -------- FINAL REPORT -------- Dictated By: Sixto Gibson Dictated Date: 09/29/2024 15:45 ET Assigned Physician: Sixto Gibson Reviewed and Electronically Signed By: Sixto Gibson Signed Date: 09/29/2024 15:46 ET Workstation ID: [id number] Transcribed By: Self Edit Transcribed Date: 09/29/2024 15:45 ET us Jose Farncisco Guerra DO IMG XR PROCEDURES Final Result from Last 3 Months Insurance BLUE [employer] - [place] MEDICARE ADVANTAGE Care Teams Lunchroom Supervisor Relationship Specialty Start Date End Date Physician, Shabana Pcp PCP - General 09/29/24
--- OUTSIDE RECORDS SUMMARY | 2024-10-01 07:44 | XMS_ITS | Encounter Summary ---
Author Organization [facility] Address [address] [place] [address] Care Team Providers Care Cloud Solutions Architect Name Role Phone Physician, No Pcp Primary Care Provider Unavaila ble Reason for Referral * Consultation (Routine) - Pending Review Specialty Diagnoses / Procedures Referred By Som moore Referred To Contact Hand Surgery Ashley Banegas PA [address] [place] [address] Phone: tel: fax: Referral ID Status Reason Start Date Expiration Date Visits Requested Visits Authorized [id number] Pending Review Specialty Services Required 09/29/2024 09/29/2025 1 1 Reason for Visit * Reason Comments Hand Injury Cut his hand on a ta ble saw 20 min prior to arrival Encounter Details Date Type Department Care Team (Late st Contact Info) Description 09/29/2024 3:33 PM EDT - 09/29/2024 5:17 PM EDT Emergency [facility] Emergency [address] [place] [id number] Laceration of left thumb without foreign body without damage to nail, initial encounter (Primary Dx) Discharge Disposition: Home or Self Care Social History Tobacco Use Types Packs/Day Years Used Date Smoking Tobacco: Never Assessed Sex and Gender Information Value Date Recorded Sex Assigned at Not on file Legal Sex Male 5:54 AM EST Gender Identity Not on file Sexual Orientation Not on file documented as of this encounter Last Filed Vital Signs Vital Sign Reading [...] Mass Index 24.41 09/29/2024 3:22 PM EDT documented in this encounter Functional Status * Are you deaf or do you have serious difficulty hearing? Answer Date of Assessment Author No 09/29/2024 3:55 PM EDT Pippa Shipley RN * Are you blind or do you have serious difficulty seeing, even when wearing glasses? Answer Date of Assessment Author No 09/29/2024 3:55 PM EDT Pippa Shipley RN * Do you have serious difficulty walking or climbing stairs? Answer Date of Assessment Author No 09/29/2024 3:55 PM EDT Pippa Shipley RN * Do you have serious difficulty dressing or bathing? Answer Date of Assessment Author No 09/29/2024 3:55 PM EDT Pippa Shipley RN * Because of a physical, mental, or emotional condition, do you have serious difficulty doing errandsalone such as visiting the doctor? Answer Date of Assessment Author No 09/29/2024 3:55 PM EDT Pippa Shipley RN documented as of this encounter Mental Status * Because of a physical, mental, or emotional condition, do you have serious difficulty concentrating, remembering, or making decisions? (5 years old or older) Answer Entry Date Author No 09/29/2024 3:55 PM EDT Pippa Shipley RN documented in this encounter Discharge Instructions * Discharge Instructions* AGUEDA Araiza - 09/29/2024 5:03 PM EDT DIAGNOSIS & TREATMENT: You were seen in the Emergency Department for a laceration left thumb. This was closed with 2 absorbable subcutaneous sutures and 5 superficial sutures that will need to be removed. You were given a tetanus booster (Tdap). FURTHER CARE: Laceration Care: Take Keflex as directed for the full course to prevent infection. Keep the wound clean and dry for the next 24 hours. After 24 hours, you should remove the dressing and wash the laceration gently with soap and water. Do not vigorously scrub the wound and do not soak the wound as this will make the edges weak and they may rip resulting in an irregular or worse scar. After washing, pat the area dry and cover the wound with a thin layer of antibiotic ointment suchas bacitracin or neomycin which you can obtain over the counter at your local pharmacy. Do not swimuntil the stitches are removed. WHEN YOU SHOULD BE SEEN NEXT: You need to have your wound reevaluated and sutures removed in 10 days. You should contact your primary care provider tomorrow to schedule this appointment. You can also return to this Emergency Department to have the sutures removed. Also placed referral to hand surgeon for evaluation and follow-up. WHEN YOU SHOULD RETURN TO THE ED: Please return to the emergency room if you develop fever, chills, night sweats, redness around the wound, red streaking around the wound, drainage such as white pus from the wound, you develop any numbness/tingling around the wound, you develop any new/concerning symptoms, or you are unable to arrange follow-up care. * Attachments The following attachments cannot be sent through Care Everywhere. * Hand Laceration: Stitches (Honduran) documented in this encounter Medications at Time of Discharge cephalexin (KEFLEX) 500 mg capsule Take 1 capsule (500 mg total) by mouth 4 (four) times a day for 5 days. 20 each 09/29/2024 10/04/2024 documented as of this encounter Ordered Prescriptions Prescription Sig Dispense Quantity Refills Last Filled Start Date End Date cephalexin (KEFLEX) 500 mg capsule Take 1 capsule (500 mg total) by mouth 4 (four) times a day for 5 days. 20 each 09/29/2024 documented in this encounter Discharge Disposition Disposition Code Departure Means Destination Comment s Home or Self Care documented in this encounter Progress Notes * AGUEDA Araiza - 09/29/2024 3:20 PM EDTAssociated Order(s): Laceration Repair Emergency Medicine Note Patient Name: Erick Soria Initial Evaluation: 09/29/2024 : 1955 Patient's PCP: No Pcp Physician Emergency Physician: AGUEDA Araiza History of Present Illness Chief Complaint: Chief Complaint Patient presents with Hand Injury Cut his hand on a table saw 20 min prior to arrival HPI: This is a 69-year-old male presenting with a laceration to his left thumb sustained from a table saw prior to arrival. Reports 8 out of 10 pain in the thumb, bleeding is controlled. He notes an area of numbness at the tip of the thumb. Denies any obvious foreign bodies or gross contamination of the wound. He is right-hand dominant. Denies any other associated injuries or complaints. No fevers, chills, dizziness, lightheadedness, shortness of breath, weakness. ROS: I have performed a ROS with the pertinent positives and negatives documented in the history ofpresent illness. Previous History History reviewed. No pertinent past medical history. History reviewed. No pertinent surgical history. No family history on file. has No Known Allergies. No current facility-administered medications on file prior to encounter. No current outpatient medications on file prior to encounter. Physical Exam ED Triage Vitals [09/29/24 1522] Temp Heart Rate Resp BP 36.4 ??C (97.5 ??F) 87 18 138/86 SpO2 Temp Source Heart Rate Source Patient Position 95 % Oral Monitor Sitting BP Location FiO2 (%) Left arm -- GENERAL: Well-Appearing, no acute distress. SKIN: Appropriate color for ethnicity, warm, dry. Approximately 2 cm laceration to the palmar surface of the left thumb not including the nailbed. Wound is jagged and curvilinear, there appears to bemissing skin and tissue as well as this is difficult to approximate. HEENT: No strido NECK: Midline structures CHEST: Heart regular rate and rhythm, no rubs, no gallops or murmurs. PULMONARY: Clear to auscultation bilaterally without any adventitious lung sounds. MUSCULOSKELETAL: Left thumb with intact range of motion, sensation. Good capillary refill. Strengthtesting some limited by pain but patient is able to provide resistance in all directions. NEURO: Alert and oriented x3 PSYCHIATRIC: Normal affect, fluid speech, good eye contact and appropriate demeanor. Results Labs Reviewed - No data to display Abnormal Labs Reviewed - No data to display XR Hand 3+ Views Left Final Result Marker is noted at the 1st digit that a region of reported injury. No bony deformity is noted. No radiopaque foreign body. Alignment is maintained. 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 -------- FINAL REPORT -------- Dictated By: Sixto Gibson Dictated Date: 09/29/2024 15:45 ET Assigned Physician: Sixto Gibson Reviewed and Electronically Signed By: Sixto Gibson Signed Date: 09/29/2024 15:46 ET Workstation ID: [id number] Transcribed By: Self Edit Transcribed Date: 09/29/2024 15:45 ET I have discussed the incidental/abnormal imaging and/or lab abnormalities with the patient and haveinstructed them the need for further evaluation and workup with their primary care doctor. I have provided the patient with a paper copy of the abnormality. The laboratory results, imaging results and other diagnostic exam results were reviewed in the EMR. EKG Interpretation Critical Care Time None Differential Diagnosis Left thumb laceration Left thumb fracture Left thumb foreign body left thumb tendon injury ? Medical Decision Making Medications acetaminophen (TYLENOL) tablet 1,000 mg (1,000 mg oral Given 09/29/24 1558) Tdap tetanus toxoid-diphtheria toxoid-acellular pertussis (BOOSTRIX) 2.5-8-5 Lf-mcg-Lf/0.5mL vaccine (ADULT - age 7 years and greater) 0.5 mL (0.5 mL intramuscular Given 09/29/244) lidocaine (XYLOCAINE) 2 % injection 5 mL (5 mL infiltration Given 09/29/241652) bacitracin ointment packet (1 Application Topical Given 09/29/241654) ED Course as of 09/30/24 0712 Sat Sep 29, 2024 1557 Patient was seen and evaluated, he is a 61-year-old male presenting with laceration to the left palmar thumb sustained from a table saw prior to arrival. Neurovascular intact, x-ray appears demetra without acute findings, no foreign body, wound will be thoroughly irrigated and repaired. Will update Tdap as he does not know when his last tetanus was. Thinks it was greater than 5 years ago. [YB] 1700 Wound was repaired with 5 simple interrupted sutures as well as 2 absorbable subcutaneous sutures, repair was difficult due to missing tissue and skin from the wound, edges of wound was loosely approximated as it could not be closely approximated. Bacitracin and dressing placed. Patient advised to follow- up in 10 days for removal strict return precaution discussed, wound care discussed, given the depth of the wound a patient will be placed on short course of Keflex to prevent infection. Wound care discussed, patient expresses understanding of plan, all questions answered. Advised to follow-up with his PCP, will place referral for hand surgery for follow-up. [YB] ED Course User Index [YB] AGUEDA Araiza Clinical Impressions as of 09/30/24 0712 Laceration of left thumb without foreign body without damage to nail, initial encounter Procedures Laceration Repair Date/Time: 09/29/2024 5:05 PM Performed by: AGUEDA Araiza Authorized by: Trina Hankins DO Consent: Consent obtained: Verbal Consent given by: Patient Risks, benefits, and alternatives were discussed: yes Risks discussed: Infection, poor cosmetic result, poor wound healing and retained foreign body Anesthesia: Anesthesia method: Nerve block Block needle gauge: 25 G Block anesthetic: Lidocaine 2% w/o epi Block technique: Digital Block injection procedure: Negative aspiration for blood, incremental injection and anatomic landmarks identified Block outcome: Anesthesia achieved Laceration details: Location: Finger Finger location: L thumb Length (cm): 3 Depth (mm): 6 Pre-procedure details: Preparation: Patient was prepped and draped in usual sterile fashion and imaging obtained to evaluate for foreign bodies Exploration: Hemostasis achieved with: Direct pressure Imaging obtained: x-ray Imaging outcome: foreign body not noted Wound exploration: wound explored through full range of motion and entire depth of wound visualized Wound extent: no underlying fracture noted and no vascular damage noted Treatment: Area cleansed with: Povidone-iodine Amount of cleaning: Standard Irrigation solution: Sterile water and sterile saline Irrigation volume: 80cc Irrigation method: Pressure wash Visualized foreign bodies/material removed: no Skin repair: Repair method: Sutures Suture size: 4-0 Suture material: Prolene Number of sutures: 5 (2 additional subcutaneous 4-0 absorbable sutures were placed as well.) Approximation: Approximation: Loose (Unable to complete approximate due to missing skin and tissue.) Post-procedure details: Dressing: Non-adherent dressing and antibiotic ointment Procedure completion: Tolerated well, no immediate complications Diagnosis 1. Laceration of left thumb without foreign body without damage to nail, initial encounter Disposition Discharge ED Prescriptions Medication Sig Dispense Start Date End Date Auth. Provider cephalexin (KEFLEX) 500 mg capsule Take 1 capsule (500 mg total) by mouth 4 (four) times a day for 5 days. 20 each 09/29/2024 10/04/2024 AGUEDA Araiza Physician Attestation AGUEDA Araiza 09/29/24 1539 AGUEDA Araiza 09/29/24 1708 AGUEDA Araiza 09/30/24 0712 Cosigned by Trina Hankins DO at 09/30/2024 3:06 PM EDT documented in this encounter Plan of Treatment Scheduled Referrals Name Type Priority Associated Diagnoses Order Schedule Ambulatory referral to Hand Surgery Outpatient Referral Routine 1 Occurrence s starting 09/29/2024 until 09/29/2025 documented as of this encounter Procedures Procedure Name Priority Date/Time Associated Diagnosis Comments ED LACERATION REPAIR Routine 09/29/2024 5:05 PM EDT XR HAND 3+ VIEWS LEFT STAT 09/29/2024 3:41 PM EDT documented in this encounter Results * Laceration Repair (09/29/2024 5:05 PM [...] ??Procedure completion: ??Tolerated well, no immediate complications us Trina Garyny Cr DO IN CLINIC/BEDSIDE ORDERAB LES Final Result * XR Hand 3+ Views Left (09/29/2024 3:41 PM EDT) Anatomical Region Laterality Modality Upper Extremities, Hand Left Radiogra phic Imaging 09/29/2024 3:45 PM EDT Impressions 09/29/2024 [...] Signed Date: 09/29/2024 15:46 ET Workstation ID: [id number] Transcribed By: Self Edit Transcribed Date: 09/29/2024 [...] Signed Date: 09/29/2024 15:46 ET Workstation ID: [id number] Transcribed By: Self Edit Transcribed Date: 09/29/2024 15:45 ET Jose Francisco Guerra DO IMG XR PROCEDURES Final Result documented in this encounter Visit Diagnoses Diagnosis Laceration of left thumb without foreign body without damage to nail, initial encounter- Primary documented in this encounter Administered Medications Inactive Administered Medications - up to 3 most recent administrations Medication Order MAR Action Action Date Dose Rate Site acetaminophen (TYLENOL) tablet 1,000 mg 1,000 mg, oral, Once, On 09/29/24 at 1547, For 1 dose Given 09/29/2024 3:58 PM EDT 1,000 mg bacitracin ointment packet 1 Application, Topical, Once as needed, wound care, Starting on 09/29/24 at 1646, For 1 dose, Left thumb wound Given 09/29/2024 4:55 PM EDT 1 Application lidocaine (XYLOCAINE) 2 % injection 5 mL 5 mL, infiltration, Once, On 09/29/24 at 1609, For 1 dose Given 09/29/2024 4:53 PM EDT 5 mL documented in this encounter Active and Recently Administered Medications Times are shown in EDT. Scheduled Medication Order 09/27/2024 09/28/2024 09/29/2024 acetaminophen (TYLENOL) tablet 1,000 mg (COMPLETED) 1,000 mg, oral, Once, On 09/29/24 at 1547, For 1 dose 1558 (Given - Provid er: Kimberley Shipley RN) lidocaine (XYLOCAINE) 2 % injection 5 mL (COMPLETED) 5 mL, infiltration, Once, On 09/29/24 at 1609, For 1 dose 1653 (Given - Provid er: Alee Lantigua RN) PRN Medication Order 09/27/2024 09/28/2024 09/29/2024 bacitracin ointment packet (COMPLETED) 1 Application, Topical, Once as needed, wound care, Starting on 09/29/24 at 1646, For 1 dose, Left thumb wound 1655 (Given - Provid er: Alee Lantigua RN) documented in this encounter Care Teams Cloud Solutions Architect Relationship Specialty Start Date End Date Physician, No Pcp PCP - General 09/29/24 documented as of this encounter
--- NOTE | 2024-10-01 08:07 | A.OFFVIS_ITS ---
Intake Visit Reasons: 6M PSA/PVR Intake Note: Patient presents today for a follow-up on: poor urinary stream and erectile dysfunction Meds- Finasteride Allergies to Antibiotic- No Known Allergies Blood Thinner- None Post Void Residual: 25mls Rigger Third Required: No Accompanied by: Self / Same As Patient Allergies No Known Drug Allergies Allergy (Unknown, Verified 10/01/24 08:25) none DRYER SHEETS Allergy (Intermediate, Uncoded 10/01/24 08:25) HIVES Medication List - Last Reconciled 10/01/24 by NI Childers-BRITANY finasteride 5 mg PO .MWF 90 days fluticasone propion-salmeterol 250-50 mcg/dose (Wixela Inhub) 1 inh inhalation BID 30 days naproxen 500 mg PO BID PRN 30 days HPI Comments Details: Erick Fields is a very pleasant 69-year-old male patient of Dr. Sue. He has a PMH of COPD and hemochromatosis. He presents to the office today for follow-up of his lower urinary tract symptoms. In discussion with the patient today reports to be doing and feeling well. When asked he denies having had any bothersome urinary issues or concerns since his last office visit here. He reports compliance with finasteride 3 times per week. In office urinalysis results reviewed with the patient today. PVR 25 mL. Recent PSA results reviewed with the patient today as noted and trended below. Previous workup has included a retroperitoneal ultrasound 02/06 noting right kidney with no calculi or hydronephrosis. Multiple peripelvic cysts largest measuring 1.7 cm in the mid pole. No imaging follow-up is recommended per radiology report. Left kidney with no calculi or hydronephrosis. Multiple peripelvic cysts. No imaging follow-up is recommended per radiology report. The bladder is well distended and normal. Pre void bladder volume is approximately 450 mL. Postvoid bladder volume is approximately 160 mL. Prostate volume is approximately 20 mL. He otherwise denies urinary urgency, urinary frequency, incontinence, nocturia, hematuria, dysuria, foul smelling urine, flank pain, fever, and or chills. He does report erectile dysfunction at times however does not find this bothersome as he has not sexually active. He otherwise offers no other issues or concerns at this time. PSA: 02/06 0.1, 10/09 0.3 PFSH Medical History Back pain of thoracolumbar region Colon cancer screening Medicare annual wellness visit, initial Skin cancer screening Blood pressure check Hereditary hemochromatosis Surgical History H/O eye surgery Hx of tonsillectomy H/O: vasectomy No pertinent past surgical history Social History Household Members: Significant Other Housing: Other (mobile home) Housing Other:: trailor Are you a primary healthcare business analyst to a significant other at home: No Alcohol intake: never Patient Tobacco Use Status: Former Tobacco user Tobacco use type: Cigarette e-Cigarette/Vaping Use: Never Used service: No Current occupational status: retired Cognitive needs: No Hearing needs: Yes Vision needs: Yes Review of Systems Const All systems reviewed & are unremarkable except as noted in HPI and below Eyes Reports no additional complaints ENT Reports no additional complaints Card Denies chest pain, Denies irregular heart rhythm and Denies leg edema Resp Reports as per HPI GI Reports no additional complaints Reports other (Being treated for BPH) Musc Reports no additional complaints Skin/Breast Reports system reviewed and no additional complaints, except as documented Neuro Reports no additional complaints Psych Reports no additional complaints Kirit/Lymph Reports as per HPI Physical Exam Const General: cooperative, healthy appearing, comfortable, no acute distress, well developed, alert and awake Nutritional Appearance: average body habitus Orientation/consciousness: patient oriented x3 Limitations: no limitations HEENT Head: Yes normal to inspection, Yes normocephalic and Yes atraumatic Ears: hearing grossly normal bilaterally (bilateral hearing aids present ) Eyes General: appearance normal, both eyes and all related structures Neck Neck: Yes normal visual inspection and Yes trachea midline Chest Chest palpation & inspection: normal inspection of the chest Resp Effort & Inspection: normal respiratory effort and able to speak in complete sentences Cardio Rate: regular rate GI Inspection: Yes normal to inspection General: Yes no CVA tenderness Back/Spine/Pelvis Back: no CVA tenderness Skin General skin exam: no rashes or lesions noted Neuro General: patient oriented x3 Extrem General: Yes normal to inspection Psych Appearance: grossly normal and well kempt Mental Status: mental status grossly normal Speech and movement: Normal speech and movement present and Clear speech present Affect: normal affect Attitude: cooperative Thought process: Normal thought process present Thought content: Normal thought content present Insight: Fair insight present (Psych) Judgement: Fair judgement present (Psych) Office Procedures Post Void Residual Post Residual Void Post Void Residual (PVR): 58951-[id number] Void Residual by ultrasound Results AMB Urinalysis, Automated UA Leukoctes 0 Chente/uL Last Edit by [employer] on 10/01/24 08:31 UA Nitrite Last Edit by [employer] on 10/01/24 08:31 UA Urobilinogen 0.2 mg/dL Last Edit by [employer] on 10/01/24 08:31 UA Protein 0 mg/dL Last Edit by [employer] on 10/01/24 08:31 UA pH 6.0 Last Edit by [employer] on 10/01/24 08:31 UA Blood 0 Porter/uL Last Edit by [employer] on 10/01/24 08:31 UA Specific Weare 1.015 Last Edit by [employer] on 10/01/24 08:31 UA Ketone Last Edit by [employer] on 10/01/24 08:31 UA Bilirubin 0 mg/dL Last Edit by [employer] on 10/01/24 08:31 UA Glucose 0 mg/dL Last Edit by [employer] on 10/01/24 08:31 Assessment & Plan Assessment & Plan (1) Parapelvic renal cyst: Code(s): N28.1 - Cyst of kidney, acquired Category: Medical (2) Erectile dysfunction: Code(s): N52.9 - Male erectile dysfunction, unspecified Category: Medical (3) Weak urinary stream: Code(s): R39.12 - Poor urinary stream Category: Medical (4) BPH (benign prostatic hyperplasia): Code(s): N40.0 - Benign prostatic hyperplasia without lower urinary tract symptoms Category: Medical Qualifiers: Lower urinary tract symptom detail: nocturia Lower urinary tract symptom presence: symptoms present Qualified Code(s): N40.1 - Benign prostatic hyperplasia with lower urinary tract symptoms; R35.1 - Nocturia Plan In office urinalysis results reviewed with the patient today; as noted above. Recent PSA results reviewed with the patient today; as noted above. PVR 25 mL. Patient currently denies any bothersome urinary issues or concerns. Reports be happy with current voiding parameters. Continue finasteride 3 times per week; as discussed and prescribed. Will continue with surveillance monitoring. Follow-up in 6 months with PVR; or sooner with any issues, concerns, and or questions. Patient Instructions: The patient had an opportunity to ask questions regarding the treatment plan. All questions were answered. Physical exam, labs, and imaging were discussed and reviewed in detail. As well as risks, benefits, and discussion of treatment choices. No major barriers to understanding were identified. The patient expressed understanding and agreement with the above treatment plan. The patient was made aware they should contact our office by phone for worsening of their current condition, the appearance of new symptoms, or with any questions or concerns. Compliance is encouraged with any medications and follow up testing that is ordered. It is a privilege to be allowed the opportunity to participate in? your urological care.? Again, if you have any questions or concerns If you have any questions or concerns please do not hesitate to contact me. The office is [phone]. This note is constructed using voice recognition software. While every effort has been made to ensure accuracy vending machine host/hostess errors may have been included. Yours sincerely, RENATE Childers Coding Level of Care Code Est Pt Level 3 (43693) Diagnoses Parapelvic renal cyst N28.1 Erectile dysfunction N52.9 Weak urinary stream R39.12 Benign prostatic hyperplasia with nocturia N40.1; R35.1 Lower urinary tract symptom detail: nocturia Lower urinary tract symptom presence: symptoms present CPT Codes Post Residual Void - PVR CPT Code: 66916-Pdvc Void Residual by ultrasound ([id number])
== END 2024-10-01 08:26 | disposition home or self-care (01) ==
LOC: HO.HUSH 07:42
PROVIDERS: PCP Internal Medicine; Visit Provider Nurse Practitioner Family
DX: N40.1 Benign prostatic hyperplasia with lower urinary tract symptoms (principal); N28.1 Cyst of kidney, acquired; N52.9 Male erectile dysfunction, unspecified; R39.12 Poor urinary stream; R35.1 Nocturia; Z13.9 Encounter for screening, unspecified
CPT/HCPCS: 99213

== ENCOUNTER → 2024-10-01 07:42 | Outpatient (BNVA) | payer MEDICARE, MEDICAID, SELFPAY | PROVIDERS: PCP Internal Medicine; Visit Provider Nurse Practitioner Family | DX: N40.1 Benign prostatic hyperplasia with lower urinary tract symptoms (principal); R39.12 Poor urinary stream; N52.9 Male erectile dysfunction, unspecified; N28.1 Cyst of kidney, acquired; R35.1 Nocturia | CPT/HCPCS: 51798; 81003; 99212 ==

== ENCOUNTER 2024-10-10 10:51 | Outpatient (AMB) | payer MEDICARE, MEDICAID, SELFPAY ==
--- NOTE | 2024-10-10 10:58 | AM.OFFWIN_ITS ---
Intake Vital Signs 10/10/24 11:00 Weight 179 lb BP 124/70 Blood Pressure Location Rt brachial Position Sitting Pulse 57 Pulse Source Pulse Oximeter Pulse Oximetry (%) 98 Oxygen Delivery Method Room Air Intake Visit Reasons: EP Stitch removal in lt thumb Intake Note: Patient here for stitch removal from left thumb. stitches were placed 11 days ago today, pt states theres about 5 stitches. Patient Tobacco Use Status: Former Tobacco user Allergies No Known Drug Allergies Allergy (Unknown, Verified 10/10/24 11:01) none DRYER SHEETS Allergy (Intermediate, Uncoded 10/10/24 11:01) HIVES Do you need a note to return to daycare/school/sports/work: No HPI HPI Comments History of Present Illness Details Patient is a 69yo M who presents with suture removal He said + dissolvable sutures and external sutures Lt thumb R hand dominant 11 days ago had sutures placed at [facility] He has been keeping clean, had tdap and 5 days of antibiotics Using neosporin Sensitive with cleaning it but otherwise no pain, 0/10 No drainage or bleeding Denies redness, fever/chills PFSH Medical History Back pain of thoracolumbar region Colon cancer screening Medicare annual wellness visit, initial Skin cancer screening Blood pressure check Hereditary hemochromatosis Surgical History H/O eye surgery Hx of tonsillectomy H/O: vasectomy No pertinent past surgical history Social History Household Members: Significant Other Housing: Other Housing Other:: trailor Are you a primary care partner to a significant other at home: No Alcohol intake: never Patient Tobacco Use Status: Former Tobacco user Tobacco use type: Cigarette e-Cigarette/Vaping Use: Never Used service: No Current occupational status: retired Cognitive needs: No Hearing needs: Yes Vision needs: Yes Review of Systems Const Denies chills, Denies fever(s) and Denies weakness Musc Denies tingling Skin/Breast Reports wounds (Lt thumb) Neuro Denies tingling and Denies weakness Physical Exam Vital Signs: Last Vital Signs Pulse 57 10/10/24 11:00 BP 124/70 10/10/24 11:00 Pulse Ox 98 10/10/24 11:00 Oxygen Delivery Method Room Air 10/10/24 11:00 General: Non-toxic, NAD. Speaking full sentences. Skin: Warm dry throughout Lt thumb: [address] No wound dehiscence. No surrounding erythema, edema or drainage. Wound moist. Eye: EOMI Respiratory: No accessory muscle use MSK: + full ROM L thumb with flexion/extension Neurology: Alert. No aphasia or facial droop. Gait without abnormality Psych: Good mood and affect Assessment & Plan Assessment & Plan (1) Visit for wound check: Code(s): Z51.89 - Encounter for other specified aftercare Plan: Patient seen and evaluated. verbal consent obtained. L thumb had 2 sutures removed from most radial aspect with scissors and tweezers. The three sutures placed along ulnar aspect thumbpad were left in place. Steri strips applied to area where sutures removed. Bandage applied. Pt tolerated well without wound dehiscence Discussed with pt he needed additional days Instructed no neosporin use Return Tuesday to remove remaining sutures. Patient gave verbal understanding and had no additional questions or concerns at time of discharge All questions answered Coding Level of Care Code Est Pt Level 3 (46585) Diagnoses Visit for wound check Z51.89
[2024-10-10 11:00] VITALS: BP 124/70; PULSE 57; O2SAT 98
--- OUTSIDE RECORDS SUMMARY | 2024-10-10 13:00 | XMS_ITS | Clinical Summary ---
Author Organization [facility] Address [address] [place] [address] Phone Care Team Providers Care Dispatch Coordinator Name Role Phone Physician, No Pcp Primary Care Provider Unavaila ble Allergies No known active allergies Medications cephalexin (KEFLEX) 500 mg capsule Take 1 capsule (500 mg total) by mouth 4 (four) times a day for 5 days. 20 each 09/29/2024 10/05/19 25 Active Problems No known active problems Encounters Date Type Department Care Team Description 09/29/2024 3:33 PM EDT - 09/29/2024 5:17 PM EDT Emergency [facility] Emergency [address] [place] [address] Laceration of left thumb without [...] ??Procedure completion: ??Tolerated well, no immediate complications Trian Hankins DO IN CLINIC/BEDSIDE ORDERAB LES Final Result * XR Hand 3+ Views Left (09/29/2024 3:41 PM EDT) Anatomical Region Laterality Modality Upper Extremities, Hand [facility] 09/29/2024 3:45 PM EDT Impressions [...] Signed Date: 09/29/2024 15:46 ET Workstation ID: [id number] Transcribed By: Self Edit Transcribed Date: 09/29/2024 [...] Signed Date: 09/29/2024 15:46 ET Workstation ID: [id number] Transcribed By: Self Edit Transcribed Date: 09/29/2024 15:45 ET us Jose Francisco Guerra DO IMG XR PROCEDURES Final Result from Last 3 Months Insurance BLUE CROSS - [place] MEDICARE ADVANTAGE Care Teams Dispatch Coordinator Relationship Specialty Start Date End Date Physician, Shabana Pcp PCP - General 09/29/24
--- OUTSIDE RECORDS SUMMARY | 2024-10-10 13:00 | XMS_ITS | Encounter Summary ---
Author Organization [facility] Address [address] [place] [address] Care Team Providers Care Data Processing Systems Consultant Name Role Phone Physician, No Pcp Primary Care Provider Unavaila ble Reason for Referral * Consultation (Routine) - Closed Specialty Diagnoses / Procedures Referred By Contjuanjo t Referred To Contact Hand Surgery / Orthopaedic Surgery Diagnoses Laceration of left thumb without foreign body without damage to nail, initial encounter Ashley Banegas PA [address] [place] [address] Phone: tel: fax: Maye Cox MD [address] [facility] [address] [place] [address] Phone: tel: fax: Referral ID Status Reason Start Date Expiration Date V isits Requested Visits Authorized [id number] Closed Specialty Services Required 09/29/2024 09/29/2025 1 1 Reason for Visit * Reason Comments Hand Injury Cut his hand on a ta ble saw 20 min prior to arrival Encounter Details Date Type Department Care Team (Late st Contact Info) Description 09/29/2024 3:33 PM EDT - 09/29/2024 5:17 PM EDT Emergency [facility] Emergency [address] [place] [address] Laceration of left thumb without [...] through Care Everywhere. * Hand Laceration: Stitches (German) documented in this encounter Medications at Time [...] day for 5 days. 20 each 09/29/2024 5 documented in this encounter Discharge Disposition Disposition [...] Signed Date: 09/29/2024 15:46 ET Workstation ID: [id number] Transcribed By: Self Edit Transcribed Date: 09/29/2024 [...] greater) 0.5 mL (0.5 mL intramuscular Given 09/29/241653) lidocaine (XYLOCAINE) 2 % injection 5 mL [...] Bacitracin and dressing placed. Patient advised to follow-up in 10 days for removal strict return [...] Araiza Physician Attestation AGUEDA Araiza 09/29/24 1539 Ashley Banegas, AGUEDA 09/29/24 1708 AGUEDA Araiza 09/30/24 0712 Cosigned [...] Repair (09/29/2024 5:05 PM EDT) Narrative Trina Haknins DO - 09/29/2024 5:05 PM EDT AGUEDA Araiza ? 09/30/2024 ??7:12 AM Laceration Repair Date/Time: 09/29/2024 5:05 PM Performed by: AGUEDA Araiza Authorized by: Trina Hankins, DO ?? Consent: ??Consent obtained: ??Verbal ??Consent [...] ??Tolerated well, no immediate complications us Trina Hankins DO IN CLINIC/BEDSIDE ORDERAB LES Final Result * XR Hand 3+ Views Left (09/29/2024 3:41 PM EDT) Anatomical Region Laterality Modality Upper Extremities, Hand Left Radiogra [facility] Imaging 09/29/2024 3:45 PM EDT Impressions 09/29/2024 [...] Signed Date: 09/29/2024 15:46 ET Workstation ID: [id number] Transcribed By: Self Edit Transcribed Date: 09/29/2024 [...] Signed Date: 09/29/2024 15:46 ET Workstation ID: [id number] Transcribed By: Self Edit Transcribed Date: 09/29/2024 [...] RN) documented in this encounter Care Teams Data Processing Systems Consultant Relationship Specialty Start Date End Date Physician, No Pcp PCP - General 09/29/24 documented as of this encounter
== END 2024-10-10 11:44 | disposition home or self-care (01) ==
PROVIDERS: PCP Internal Medicine; Visit Provider Physician Assistant
DX: Z51.89 Encounter for other specified aftercare (principal)

== ENCOUNTER → 2024-10-10 10:51 | Outpatient (BNVA) | payer MEDICARE, MEDICAID, SELFPAY | PROVIDERS: PCP Internal Medicine; Visit Provider Physician Assistant | DX: Z48.02 Encounter for removal of sutures (principal) | CPT/HCPCS: 99212 ==

== ENCOUNTER 2024-10-15 13:07 | Outpatient (AMB) | payer MEDICARE, MEDICAID, SELFPAY ==
--- NOTE | 2024-10-15 14:02 | MHC.OFFWIV ---
Intake Vital Signs 10/15/24 14:15 Weight 179 lb BP 120/72 Blood Pressure Location Lt brachial Position Sitting Pulse 69 Pulse Source Pulse Oximeter Pulse Oximetry (%) 97 Oxygen Delivery Method Room Air Intake Visit Reasons: EP- stitches removal Intake Note: Patient here to have remaining stitches removed from left thumb Patient Tobacco Use Status: Former Tobacco user Allergies No Known Drug Allergies Allergy (Unknown, Verified 10/10/24 11:01) none DRYER SHEETS Allergy (Intermediate, Uncoded 10/10/24 11:01) HIVES HPI HPI Comments History of Present Illness Details 69 y/o male patient who presents to the walk in clinic for suture removal. [facility] Medical History (Updated 10/15/24 @ 14:33 by Nanette Gage NP) Encounter for removal of sutures Back pain of thoracolumbar region Colon cancer screening Medicare annual wellness visit, initial Skin cancer screening Blood pressure check Hereditary hemochromatosis Surgical History H/O eye surgery Hx of tonsillectomy H/O: vasectomy No pertinent past surgical history Social History Household Members: Significant Other Housing: Other Housing Other:: trailor Are you a primary eye care professional to a significant other at home: No Alcohol intake: never Patient Tobacco Use Status: Former Tobacco user Tobacco use type: Cigarette e-Cigarette/Vaping Use: Never Used service: No Current occupational status: retired Cognitive needs: No Hearing needs: Yes Vision needs: Yes Review of Systems Const All systems reviewed & are unremarkable except as noted in HPI and below Physical Exam Vital Signs: Last Vital Signs Pulse 69 10/15/24 14:15 BP 120/72 10/15/24 14:15 Pulse Ox 97 10/15/24 14:15 Oxygen Delivery Method Room Air 10/15/24 14:15 Const General: no acute distress Orientation/consciousness: patient oriented x3 Neuro General: patient oriented x3, gait normal and moves all extremities Extrem Hand/finger images: 1. Removed 3 stitches. Wound healing properly. No signs of infection. Small Hardened Scar tissue at the Tip of thumb. No bleeding, some mild tenderness. Psych Speech and movement: Normal speech and movement present Assessment & Plan Assessment & Plan (1) Encounter for removal of sutures: Code(s): Z48.02 - Encounter for removal of sutures Plan Removed 3 stitches. Wound healing properly. No signs of infection. Small Hardened Scar tissue at the Tip of thumb. No bleeding, some mild tenderness. Coding Level of Care Code Est Pt Level 4 (01316) Diagnoses Encounter for removal of sutures Z48.02 Time Spent (min) 20
[2024-10-15 14:15] VITALS: BP 120/72; PULSE 69; O2SAT 97
--- OUTSIDE RECORDS SUMMARY | 2024-10-15 14:45 | XMS_ITS | Clinical Summary ---
Author Organization [facility] Address [address] [place] [address] Phone Care Team Providers Care Trust And Estates Attorney Name Role Phone Physician, No Pcp Primary [...] EDT - 09/29/2024 5:17 PM EDT Emergency [facility] Emergency [address] [place] [address] Laceration of left thumb without [...] Extremities, Hand [facility] 09/29/2024 3:45 PM EDT [...] Signed Date: 09/29/2024 15:46 ET Workstation ID: [id number] Transcribed By: Self Edit Transcribed Date: 09/29/2024 [...] Signed Date: 09/29/2024 15:46 ET Workstation ID: [id number] Transcribed By: Self Edit Transcribed Date: 09/29/2024 15:45 ET us Jose Francisco Guerra DO IMG XR PROCEDURES Final Result from Last 3 Months Insurance [employer] - [place] MEDICARE ADVANTAGE Care Teams Trust And Estates Attorney Relationship Specialty Start Date End Date Physician, Shabana Pcp PCP - General 09/29/24
== END 2024-10-15 14:32 | disposition home or self-care (01) ==
PROVIDERS: PCP Internal Medicine; Visit Provider Nurse Practitioner Family
DX: Z48.02 Encounter for removal of sutures (principal)

== ENCOUNTER → 2024-10-15 13:07 | Outpatient (BNVA) | payer MEDICARE, MEDICAID, SELFPAY | PROVIDERS: PCP Internal Medicine; Visit Provider Nurse Practitioner Family | DX: Z48.02 Encounter for removal of sutures (principal) | CPT/HCPCS: 99212 ==

== ENCOUNTER 2024-11-14 10:09 | Outpatient (AMB) | payer MEDICARE, MEDICAID, SELFPAY ==
[2024-11-14 10:11] VITALS: BP 110/68; PULSE 52; O2SAT 96; BMI 24.5
--- NOTE | 2024-11-14 10:11 | A.OFFVIS_ITS ---
Intake Vital Signs 11/14/24 10:11 Height 5 ft 11 in Weight 175 lb 6 oz BMI 24.5 BP 110/68 Blood Pressure Location Lt brachial Position Sitting Pulse 52 Pulse Source Pulse Oximeter Pulse Oximetry (%) 96 Oxygen Delivery Method Room Air Intake Visit Reasons: [facility] G0439 Allergies No Known Drug Allergies Allergy (Unknown, Verified 11/14/24 10:11) none DRYER SHEETS Allergy (Intermediate, Uncoded 11/14/24 10:11) HIVES Medication List - Last Reconciled 11/14/24 by Mikael Sue MD finasteride 5 mg PO .MWF 90 days fluticasone propion-salmeterol 250-50 mcg/dose (Wixela Inhub) 1 inh inhalation BID 30 days naproxen 500 mg PO BID PRN 30 days Do you need a note to return to daycare/school/sports/work: No HPI [facility] G0439 HPI Details History - The patient is a 69-year-old male pres enting with dizziness and routine monitoring of anemia. Along with Medicare wellness visit - The patient reports feeling dizzy occa sionally, similar to the sensation experienced with a change in altitude or getting up too fast. - There is a noted history of anemia, wi th slightly low blood count, which is monitored annually. - Patient acknowledges dizziness with ch gustavo of position, which could be related to vertigo from possible inner ear issues. - The patient uses a hearing aid - He is taking naproxen PRN for left hip pain relief. - The patient has a past diagnosis of se arley COPD, and is established with health informatics specialist [facility] - Previous colonoscopy was replaced by r poncho Cologuard testing in late fall 2023. - Current appointments include lung func tion check in December and urology in March. - he has hemochromatosis and goes in for blood donation periodically Problem List - Anemia - Chronic Obstructive Pulmonary Disease (COPD) - Dizziness - Hearing Loss Patient Instructions - Book your next appointment in one year at the front office spec. - Complete the blood test today to check anemia, vitamin D, and vitamin B12 status. - Continue attending scheduled appointme nts with other specialists as planned. - Notify the office promptly if there ar e any new symptoms or worsening of dizziness and fatigue. - naproxen refill Review of Systems - General: No fever no chills - Neurological: No headaches - Ear nose throat: No sore throat no hearing difficulty no ear pain - Cardiovascular: No syncope, no chest pain, no palpitations - Gastrointestinal: No nausea vomiting or diarrhea - Endocrine: No polyuria polydipsia no heat intolerance - Genitourinary: No dysuria , no blood in urine Physical Exam General: No acute distress HEENT: No acute findings. 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: Alert awake oriented x3 motor sensory intact, balance checked and normal Skin: Normal turgor, recent change noted but not specified in detail HPI Comments History of Present Illness Details AWV Medical/social history reviewed Past medical history reviewed [place] of care / care team list updated Surgical/ hospitalization history reviewed Current medications including OTC and supplements reviewed Family history reviewed Tobacco controlled form updated Alcohol use form updated Illicit drug use in social history reviewed Current diagnosis of depression ?screening updated Appropriate PHQ 2/PHQ-9 completed . Vital signs reviewed Alcohol tobacco drug use reviewed and discussed . MMSE completed . ? Fall risk: ?Assessed Fall history: ?None Have you had any falls with injury in the past year?? No Have you had 2 or more falls in the past year?? No Fall risk assessment completed Home safety discussed with the patient Functional ability assessed and discussed and documented Activities of daily living reviewed and appropriate actions taken . HRA filled out by the patient and reviewed by provider and scanned . Appropriate written screening schedule established . Any health advise needed provided . Advance care planning discussed with the patient , necessary paperwork filled Examination IPPE/AWE: Balance intact Romberg intact Tandem walk intact walk-in turn intact rise from sit to stand intact . ?Hearing ?whisper test FAILED . Medication list reviewed, patient is stable on medications All other providers patient is seeing discussed and noted . [facility] Medical History Encounter for removal of sutures Back pain of thoracolumbar region Colon cancer screening Medicare annual wellness visit, initial Skin cancer screening Blood pressure check Hereditary hemochromatosis Surgical History H/O eye surgery Hx of tonsillectomy H/O: vasectomy No pertinent past surgical history Social History Household Members: Significant Other Housing: Other Housing Other:: trailor Are you a primary patient care technician instructor to a significant other at home: No Alcohol intake: never Patient Tobacco Use Status: Former Tobacco user Tobacco use type: Cigarette e-Cigarette/Vaping Use: Never Used service: No Current occupational status: retired Cognitive needs: No Hearing needs: Yes Vision needs: Yes Questionnaire Medicare Wellness Checkup What [age] What gender do you identify with?: male During the past 4 weeks, how much have you been bothered by emotional problems such as feeling anxious, depressed, irritable, sad or downhearted, and blue?: not at all During the past 4 weeks, has your physical & emotional health limited your social activities with family, friends, neighbors, or groups?: not at all During the past 4 weeks, how much bodily pain have you generally had?: mild pain During the past 4 weeks, was someone available to help you if you needed & wanted help?: yes, as much as I wanted During the past 4 weeks, what was the hardest physical activity you could do for at least 2 minutes?: heavy Can you get to places out of walking distance without help? (For eg., can you travel alone on buses, taxis or drive your car?): Yes Can you go shopping for groceries or clothes without someone's help?: Yes Can you prepare your own meals?: Yes Can you do your housework without help?: Yes Because of any health problems, do you need the help of another person with your personal care needs such as eating, bathing, dressing or getting around the house?: No Can you handle your own money without help?: Yes During the past 4 weeks, how would you rate your health in general?: good During the past 4 weeks how have things been going for you?: pretty well Are you having difficulties driving your car?: no Do you always fasten your seat belt when you are in a car?: yes, usually During past 4 weeks, have you been bothered by the following: never: Trouble eating well?, Teeth or denture problems? and Problems using the telephone?, sometimes: Falling or dizzy when standing up and Tiredness or fatigue? and always: Sexual problems? Have you fallen 2 or more times in the past year?: No Are you afraid of falling?: No Are you a smoker?: no During the past 4 weeks, how many drinks of wine, beer, or other alcoholic beverages did you have?: no alcohol at all Do you exercise for about 20 minutes 3 or more times a week?: yes, most of the time Have you been given information to help with the following?: no: Hazards in your house that might hurt you? and no: Keeping track of your medications? How often do you have trouble taking medicines the way you have been told to take them?: I always take medicine as prescribed How confident are you that you can control & manage most of your health problems?: very confident What is your race?: White Mini Mental State Exam (MMSE) Orientation What is the (year) (season) (date) (day) (month)?: year, season, date, day and month Where are we (state) (county) (town or city) (hospital) (floor)?: state, county, town or city, hospital/clinic and floor Score Score: 10 Activity of Daily Living Bathing - sponge bath, tub bath or shower: receives no assistance (gets in/out by self, if usual bathing means Dressing - getting clothes from closets & drawers, including inner/outer garments & fasteners.: gets clothes & gets completely dressed without help Toileting - going to the 'toilet room' for urine/bowel elimination & cleaning self/arranging clothes: goes to toilet room, cleans self, arranges clothes without help Transfer: moves in & out of bed and chair without help (may use support object) Continence: controls urination/bowel movements completely by self Feeding: feeds self without help Total Score: 0 Information obtained from: patient Using telephone: independent Traveling: independent Shopping: independent Preparing meals: independent Housework: independent Taking medicine: independent Managing money: independent PHQ-9 Over the last 2 weeks, how often have you been bothered by any of the following problems? 1. Little interest or pleasure in doing things: not at all 2. Feeling down, depressed, or hopeless: not at all 3. Trouble falling or staying asleep, or sleeping too much: several days 4. Feeling tired or having little energy: several days 5. Poor appetite or overeating: not at all 6. Feeling bad about yourself - or that you are a failure or have let yourself or your family down: not at all 7. Trouble concentrating on things, such as reading the newspaper or watching television: not at all 8. Moving or speaking so slowly that other people could have noticed. Or the opposite - being so fidgety or restless that you have been moving around a lot more than usual: not at all 9. Thoughts that you would be better off or of hurting yourself in some way: not at all Total score: 2 Depression Screening Interpretation: Negative Depression Screening Done: Yes 24956 - PHQ-9 Billing: Yes Source: Developed by Drs. Ck Martinez, Juju Murray, Juancho Guzman and colleagues, with an educational yenny from [employer]. Physical Exam Vital Signs: Last Vital Signs Pulse 52 11/14/24 10:11 BP 110/68 11/14/24 10:11 Pulse Ox 96 11/14/24 10:11 Oxygen Delivery Method Room Air 11/14/24 10:11 BMI result Body Mass Index 24.5 Assessment & Plan Assessment & Plan (1) Medicare annual wellness visit, subsequent: Code(s): Z00.00 - Encounter for general adult medical examination without abnormal findings (2) Microcytic anemia: Code(s): D50.9 - Iron deficiency anemia, unspecified (3) Neuropathy, peripheral axonal: Code(s): G62.89 - Other specified polyneuropathies (4) Hip pain, left: Code(s): M25.552 - Pain in left hip (5) COPD, severe: Comment: Chronic obstructive pulmonary disease, remains well controlled with his current regimen. He is very careful and has not gotten any respiratory infection in the past 1 year. Code(s): J44.9 - Chronic obstructive pulmonary disease, unspecified (6) BPH (benign prostatic hyperplasia): Code(s): N40.0 - Benign prostatic hyperplasia without lower urinary tract symptoms Qualifiers: Lower urinary tract symptom presence: symptoms present Lower urinary tract symptom detail: nocturia Qualified Code(s): N40.1 - Benign prostatic hyperplasia with lower urinary tract symptoms; R35.1 - Nocturia (7) Hemochromatosis: Comment: HEREDITARY. HE DONATES BLOOD PERIODICALLY. Code(s): E83.119 - Hemochromatosis, unspecified Qualifiers: Hemochromatosis type: hereditary Qualified Code(s): E83.110 - Hereditar y hemochromatosis (8) Chronic vertigo: Code(s): R42 - Dizziness and giddiness (9) Hard of hearing: Code(s): H91.90 - Unspecified hearing loss, unspecified ear Plan History - The patient is a 69-year-old male presenting with dizziness and routine monitoring of anemia. Along with Medicare wellness visit - The patient reports feeling dizzy occasionally, similar to the sensation experienced with a change in altitude or getting up too fast. - There is a noted history of anemia, with slightly low blood count, which is monitored annually. - Patient acknowledges dizziness with change of position, which could be related to vertigo from possible inner ear issues. - The patient uses a hearing aid - He is taking naproxen PRN for left hip pain relief. - The patient has a past diagnosis of severe COPD, and is established with health informatics specialist [facility] - Previous colonoscopy was replaced by recent Cologuard testing in late fall 2023. - Current appointments include lung function check in December and urology in March. - he has hemochromatosis and goes in for blood donation periodically Problem List - Anemia - Chronic Obstructive Pulmonary Disease (COPD) - Dizziness - Hearing Loss Patient Instructions - Book your next appointment in one year at the front office spec. - Complete the blood test today to check anemia, vitamin D, and vitamin B12 status. - Continue attending scheduled appointments with other specialists as planned. - Notify the office promptly if there are any new symptoms or worsening of dizziness and fatigue. - naproxen refill Orders: Orders Ferritin Today D50.9 - Iron deficiency anemia, unspecified Folate Today D50.9 - Iron deficiency anemia, unspecified Complete Blood Count Auto Diff Today D50.9 - Iron deficiency anemia, unspecified Vitamin D 25-OH (D2 and D3) Today D50.9 - Iron deficiency anemia, unspecified Vitamin B12 Today G62.89 - Other specified polyneuropathies Medications: Refilled naproxen Take it with food 12 hours apart as needed for hip pain 500 mg PO BID 30 days PRN 60 tabs 5RF pain Quality Reporting (2019) Depression/Bipolar (159/160/161/177) PHQ-9: Total score: 2 Coding Level of Care Code Medicare Subsequent (G0439) Est Pt Level 4 (63257) Diagnoses Medicare annual wellness visit, subsequent Z00.00 Microcytic anemia D50.9 Neuropathy, peripheral axonal G62.89 Hip pain, left M25.552 COPD, severe J44.9 Benign prostatic hyperplasia with nocturia N40.1; R35.1 Lower urinary tract symptom presence: symptoms present Lower urinary tract symptom detail: nocturia Hereditary hemochromatosis E83.110 Hemochromatosis type: hereditary Chronic vertigo R42 Hard of hearing H91.90 Additional Codes PHQ-9 - 51575 - PHQ-9 Billing: Yes ([id number])
--- OUTSIDE RECORDS SUMMARY | 2024-11-14 11:13 | XMS_ITS | Clinical Summary ---
Author Organization [facility] Address [address] [place] [address] Phone Care Team Providers Care Analytical Consultant Name Role Phone Physician, No Pcp Primary Care Provider Unavaila ble Allergies No known active allergies Medications No known medications Active Problems No known active problems Encounters Date Type Department Care Team Description 09/29/2024 3:33 PM EDT - 09/29/2024 5:17 PM EDT Emergency [facility] Emergency [address] [place] [address] Laceration of left thumb without [...] - 2023-2 5 season) 2024 08/29/2021, 08/08/2021 Abdominal Aortic Aneurysm (AAA) Screen 09/29/2024 Cholesterol Screening (Lipid Panel) 09/29/2024 Colorectal Cancer Screening: Colonoscopy 09/29/2024 Depression Screening 09/29/2024 Falls Risk Assessment 09/29/2024 Hepatitis C Screening 09/29/2024 Medicare Annual Wellness Visit 09/29/2024 Social Influencers of Health Screening 09/29/2024 Influenza Vaccine (Season Ended) 2025 RSV Immunization Adult Patients (1 - 1-dose 75+ series) 01/08/2031 DTaP,Tdap,and [...] age to complete this topic Meningococcal B Vaccine Aged Out No l onger eligible based on patient's age to complete [...] Laceration Repair (09/29/2024 5:05 PM EDT) Narrative Cr Trina Ross, - 09/29/2024 5:05 PM EDT AGUEDA Araiza [...] Laterality Modality Upper Extremities, Hand [facility] 09/29/2024 3:45 PM EDT Impressions 09/29/2024 [...] Signed Date: 09/29/2024 15:46 ET Workstation ID: [id number] Transcribed By: Self Edit Transcribed Date: 09/29/2024 [...] Signed Date: 09/29/2024 15:46 ET Workstation ID: [id number] Transcribed By: Self Edit Transcribed Date: 09/29/2024 15:45 ET us Jose Francisco Guerra DO IMG XR PROCEDURES Final Result from Last 3 Months Insurance BLUE [employer] - [place] MEDICARE ADVANTAGE Care Teams Analytical Consultant Relationship Specialty Start Date End Date Physician, No Pcp PCP - General 09/29/24
== END 2024-11-14 10:38 | disposition home or self-care (01) ==
LOC: HO.HMCC 10:09
PROVIDERS: PCP Internal Medicine; Visit Provider Internal Medicine
DX: Z00.00 Encounter for general adult medical examination without abnormal findings (principal); J44.9 Chronic obstructive pulmonary disease, unspecified; H91.93 Unspecified hearing loss, bilateral; R42 Dizziness and giddiness; D50.9 Iron deficiency anemia, unspecified; G62.89 Other specified polyneuropathies; M25.552 Pain in left hip; N40.1 Benign prostatic hyperplasia with lower urinary tract symptoms; R35.1 Nocturia; E83.110 Hereditary hemochromatosis

== ENCOUNTER 2024-11-14 10:09 | Outpatient (REF) | payer MEDICARE, MEDICAID, SELFPAY ==
--- OUTSIDE RECORDS SUMMARY | 2024-11-14 12:03 | XMS_ITS | Clinical Summary ---
Author Organization [facility] Address [address] [place] [address] Phone Care Team Providers Care Information Technology Director Name Role Phone Physician, No Pcp Primary Care Provider Unavaila ble Allergies No known active allergies Medications No known medications Active Problems No known active problems Encounters Date Type Department Care Team Description 09/29/2024 3:33 PM EDT - 09/29/2024 5:17 PM EDT Emergency [facility] Emergency [address] [place] [address] Laceration of left thumb without [...] Laceration Repair (09/29/2024 5:05 PM EDT) Narrative rC Trina Ross, - 09/29/2024 5:05 PM EDT [...] Laterality Modality Upper Extremities, Hand [facility] 09/29/2024 3:45 PM EDT Impressions [...] Signed Date: 09/29/2024 15:46 ET Workstation ID: [id number] Transcribed By: Self Edit Transcribed Date: 09/29/2024 [...] Signed Date: 09/29/2024 15:46 ET Workstation ID: [id number] Transcribed By: Self Edit Transcribed Date: 09/29/2024 15:45 ET us Jose Francisco Guerra DO IMG XR PROCEDURES Final Result from Last 3 Months Insurance BL[place] - [place] MEDICARE ADVANTAGE Care Teams Information Technology Director Relationship Specialty Start Date End Date Physician, No Pcp PCP - General 09/29/24
[2024-11-14 13:42] LABS: Basophils Percent Auto 0.8 % (0-2); Eosinophils Absolute Auto 0.1 X10*3/uL (0.0-0.4); Eosinophils Percent Auto 2.7 % (0-4); Hemoglobin 13.6 g/dl (14.0-18.0); Imm Gran Abs Auto 0.01 X10*3/uL (0.00-0.03); Imm Gran Pct Auto 0.3 % (0.0-0.4); Lymphocytes Absolute Auto 1.3 X10*3/uL (1.2-4.9); Lymphocytes Percent Auto 34.2 % (20-40); MANUAL DIFF FLAG SCAN; Mean Corpuscular Hemoglobin 33.4 pg (27.0-33.0); Mean Corpuscular Volume 98.3 fL (80.0-98.0); Mean Platelet Volume 10.5 fL (9.4-12.4); Monocytes Absolute Auto 0.8 X10*3/uL (0.1-1.2); Monocytes Percent Auto 20.5 % (2-11); Neutrophils Absolute Auto 1.5 x10*3/uL (2.0-8.3); Neutrophils Percent Auto 41.5 % (45-73); Platelet Count 276 X10*3/uL (160-400); Red Blood Count 4.07 X10*6/uL (4.60-5.80); Red Cell Distribution Width 15.3 % (11.0-16.0); SCAN SMEAR FLAG 1; White Blood Count 3.7 X10*3/uL (4.8-10.8)
[2024-11-14 14:12] LABS: SLIDE REVIEW VERIFIED
[2024-11-14 14:20] LABS: Ferritin 82 ng/mL (20-250)
[2024-11-14 14:23] LABS: Folate 8.4 ng/mL (> or = 4.0); Vitamin B12 210 pg/mL (200-900)
[2024-11-18 15:39] LABS: Vitamin D 25-OH, D2 <4 ng/mL; Vitamin D 25-OH, D3 22 ng/mL; Vitamin D 25-OH, Total 22 ng/mL (30-100)
== END 2024-11-14 10:10 | disposition home or self-care (01) ==
LOC: HO.HMGCLDS 10:09
PROVIDERS: PCP Internal Medicine; Visit Provider Internal Medicine
DX: Z00.00 Encounter for general adult medical examination without abnormal findings (principal); G62.89 Other specified polyneuropathies; M25.552 Pain in left hip; J44.9 Chronic obstructive pulmonary disease, unspecified; N40.1 Benign prostatic hyperplasia with lower urinary tract symptoms; R35.1 Nocturia; E83.110 Hereditary hemochromatosis; R42 Dizziness and giddiness; H91.90 Unspecified hearing loss, unspecified ear
CPT/HCPCS: 36415; 82306; 82607; 82728; 82746; 85025; 96127; 99212

== ENCOUNTER 2024-12-04 09:02 | Outpatient (AMB) | payer MEDICARE, MEDICAID, SELFPAY ==
--- NOTE | 2024-12-04 09:28 | MHC.OFFVIS ---
Vital Signs 12/04/24 09:30 Height 5 ft 11 in Weight 175 lb 4.28 oz BMI 24.4 BP 142/74 H Blood Pressure Location Lt brachial Position Sitting Pulse 49 L Pulse Source Pulse Oximeter Pulse Oximetry (%) 97 Oxygen Delivery Method Room Air Intake Visit Reasons: copd Intake Note: pt is here for follow up and states mostly short of breath with exertion, fast walking, stairs. Senior Medical Writer Required: No Allergies No Known Drug Allergies Allergy (Unknown, Verified 12/04/24 10:02) none DRYER SHEETS Allergy (Intermediate, Uncoded 12/04/24 10:02) HIVES Medication List - Last Reconciled 12/04/24 by Kyle Wilder MD finasteride 5 mg PO .MWF 90 days fluticasone propion-salmeterol 250-50 mcg/dose (Wixela Inhub) 1 inh inhalation BID 30 days naproxen 500 mg PO BID PRN 30 days Do you need a note to return to daycare/school/sports/work: No HPI HPI copd: Details: This 69 years old gentleman is here for his yearly follow-up for mild asthma/COPD. He has been well and has had no acute exacerbation during the year. His complaint remains the same which is getting short of breath on climbing heights are hiking on the mountains. He has no complaint at rest. He does have complaint of mild lightheadedness when he walks around. He still has some numb feeling in the feet due to his peripheral neuropathy. He is using Wixela 250-50 most of the time only once a day and sometime goes back to twice a day. [facility] Medical History (Updated 12/04/24 @ 10:07 by Kyle Wilder MD) COPD (chronic obstructive pulmonary disease) Encounter for removal of sutures Back pain of thoracolumbar region Colon cancer screening Medicare annual wellness visit, initial Skin cancer screening Blood pressure check Hereditary hemochromatosis Surgical History H/O eye surgery Hx of tonsillectomy H/O: vasectomy No pertinent past surgical history Social History Household Members: Significant Other Housing: Other Housing Other:: trailor Are you a primary health care coordinator to a significant other at home: No Alcohol intake: never Patient Tobacco Use Status: Former Tobacco user Tobacco use type: Cigarette e-Cigarette/Vaping Use: Never Used service: No Current occupational status: retired Cognitive needs: No Hearing needs: Yes Vision needs: Yes Review of Systems Const All systems reviewed & are unremarkable except as noted in HPI and below Eyes Reports no additional complaints ENT Reports no additional complaints Card Denies chest pain, Denies irregular heart rhythm and Denies leg edema Resp Reports as per HPI GI Reports no additional complaints Reports other (Being treated for BPH) Musc Reports no additional complaints Skin/Breast Reports system reviewed and no additional complaints, except as documented Neuro Reports no additional complaints Psych Reports no additional complaints Physical Exam Vital Signs: Last Vital Signs Pulse 49 L 12/04/24 09:30 BP 142/74 H 12/04/24 09:30 Pulse Ox 97 12/04/24 09:30 Oxygen Delivery Method Room Air 12/04/24 09:30 BMI result Body Mass Index 24.4 Const General: healthy appearing (He is of a thin build, but looks physically active.), comfortable, no acute distress, alert and awake Orientation/consciousness: patient oriented x3 HEENT Head: Yes normal to inspection General nose exam: No nasal polyps present and No nasal discharge present Face and sinus: Yes sinuses nontender Mouth: oropharynx normal Throat: Yes posterior oropharynx normal Eyes General: appearance normal, both eyes and all related structures Neck Neck: Yes normal visual inspection, Yes no lymphadenopathy, Yes trachea midline and Yes JVD (Prominent right jugular vein when he is talking) Thyroid: Thyroid normal Chest Chest palpation & inspection: normal inspection of the chest, normal palpation of entire chest wall and no tenderness Resp Other: Percussion note hyper-resonant,. Breath sounds are distant on both sides with prolonged expiratory phase. No definite wheezes or crepitations heard. Cardio Palpation: normal PMI Rate: regular rate Rhythm: regular rhythm Heart sounds: no gallops and no murmurs Peripheral pulses: Peripheral pulses 2+ throughout GI Palpation (GI): Soft to palpation, nontender, No hepatosplenomegaly present and no masses Auscultation: normal bowel sounds Back/Spine/Pelvis Thoracic/Lumbar Spine: thoracic and lumbar spine normal to inspection, thoraco-lumbar ROM limited and other (There is muscular tenderness, in right thoracolumbar area, ) Skin General skin exam: no rashes or lesions noted Neuro General: patient oriented x3 and no focal motor deficits Cranial nerves: Yes CN's II-XII intact bilaterally Extrem General: Yes normal to inspection, Yes no clubbing, cyanosis or edema and Yes no calf tenderness Psych Appearance: grossly normal and well kempt Speech and movement: Normal speech and movement present Results Reviewed Results Reviewed: SPIROMETRY IN THE OFFICE TODAY IS CONSISTENT WITH MILD OBSTRUCTIVE AIRWAY DISORDER . Assessment & Plan Assessment & Plan (1) COPD (chronic obstructive pulmonary disease): Code(s): J44.9 - Chronic obstructive pulmonary disease, unspecified Category: Medical Plan HE DOES HAVE MILD OBSTRUCTIVE AIRWAY DISORDER, . IT IS REMAINING STABLE SPIROMETRY RESULTS COMPARED WITH LOST SPIROMETRY IN 2022, THERE IS SLIGHT FURTHER DECLINE IN FEV1. SYMPTOM MEDICALLY HE IS NOT ANY WORSE THAN BEFORE. ADVISED TO CONTINUE USING WIXELA 250-51 INHALATION DAILY, INCREASED TO B.I.D. IF SYMPTOMS ARE ANY WORSE. ALBUTEROL HFA 1 OR 2 PUFFS Q 6 HOURS ONLY P.R.N. Coding Level of Care Code Est Pt Level 3 (49494) Diagnoses COPD (chronic obstructive pulmonary disease) J44.9
[2024-12-04 09:30] VITALS: BP 142/74; PULSE 49; O2SAT 97; BMI 24.4
--- OUTSIDE RECORDS SUMMARY | 2024-12-04 09:39 | XMS_ITS | Clinical Summary ---
Author Organization [facility] Address [address] [place] [address] Phone Care Team Providers Care Belt Brander Name Role Phone Physician, No Pcp Primary Care Provider Unavaila ble Allergies No known active allergies Medications No known medications Active Problems No known active problems Encounters Date Type Department Care Team Description 09/29/2024 3:33 PM EDT - 09/29/2024 5:17 PM EDT Emergency [facility] Emergency [address] [place] [address] Laceration of left thumb without [...] Laterality Modality Upper Extremities, Hand [facility] 09/29/2024 3:45 PM EDT [...] Signed Date: 09/29/2024 15:46 ET Workstation ID: [id number] Transcribed By: Self Edit Transcribed Date: 09/29/2024 [...] Signed Date: 09/29/2024 15:46 ET Workstation ID: [id number] Transcribed By: Self Edit Transcribed Date: 09/29/2024 15:45 ET us Jose Francisco Guerra DO IMG XR PROCEDURES Final Result from Last 3 Months Insurance [employer] - [place] MEDICARE ADVANTAGE Care Teams Belt Brander Relationship Specialty Start Date End Date Physician, No Pcp PCP - General 09/29/24
== END 2024-12-04 10:03 | disposition home or self-care (01) ==
LOC: HO.HPS 09:03
PROVIDERS: PCP Internal Medicine; Visit Provider Internal Medicine
DX: J44.9 Chronic obstructive pulmonary disease, unspecified (principal)
CPT/HCPCS: 94010; 99213

== ENCOUNTER → 2024-12-04 09:02 | Outpatient (BNVA) | payer MEDICARE, MEDICAID, SELFPAY | PROVIDERS: PCP Internal Medicine; Visit Provider Internal Medicine | DX: J44.9 Chronic obstructive pulmonary disease, unspecified (principal) | CPT/HCPCS: 94010; 99212 ==

== ENCOUNTER 2025-02-07 09:39 | Outpatient (REF) | payer MEDICARE, MEDICAID, SELFPAY ==
--- OUTSIDE RECORDS SUMMARY | 2025-02-07 10:17 | XMS_ITS | Clinical Summary ---
Author Organization [facility] Address [address] [place] [address] Phone Care Team Providers Care Vice President Of Brand Management Name Role Phone Physician, No Pcp Primary Care Provider Unavaila ble Allergies No known active allergies Medications No known medications Active Problems No known active problems Encounters Date Type Department Care Team Description 12/28/2024 5:22 PM EDT - 12/28/2024 6:38 PM EDT Emergency [facility] Emergency [address] [place] [address] Contusion of left wrist, initial encounter (Primary Dx) Discharge Disposition: Home [...] Sign Reading Time Taken Comments Blood Pressure 132/62 12/28/2024 4:46 PM EDT Pulse 73 12/28/2024 4:46 PM EDT Temperature 36.7 C (98.1 F) 12/28/2024 4:46 PM EDT Respiratory Rate 18 12/28/2024 4:46 PM EDT Oxygen Saturation 96% 12/28/2024 4:46 PM EDT Inhaled Oxygen Concentration - - Weight 79.4 kg (175 lb) 12/28/2024 4:46 PM EDT Height 180.3 cm (5' 11 ) 12/28/2024 4:46 PM EDT Body Mass Index 24.41 12/28/2024 4:46 PM EDT Plan of Treatment Health Maintenance Due Date Last Done Comments Pneumococcal Vaccine: 50+ Years (1 of 1 - PCV) 01/08/2006 Zoster Vaccines (1 of 2) 01/08/2006 COVID-19 Vaccine (3 - 2023-2 5 season) 2024 08/29/2021, 08/08/2021 Depression Screening 07/18/2024 Abdominal Aortic Aneurysm (AAA) Screen 09/29/2024 Cholesterol Screening (Lipid Panel) 09/29/2024 Colorectal Cancer Screening: Colonoscopy 09/29/2024 Falls Risk Assessment 09/29/2024 Hepatitis C Screening 09/29/2024 Medicare Annual Wellness Visit 09/29/2024 Social Influencers of Health Screening 09/29/2024 Influenza Vaccine (#1) 2025 RSV Immunization Adult Patients (1 - [...] Procedure Name Priority Date/Time Associated Diagnosis Comments XR WRIST 3+ VIEWS LEFT STAT 12/28/2024 5:00 PM EDT from Last 3 Months Results * XR Wrist 3+ Views Left (12/28/2024 5:00 PM EDT) Anatomical Region Laterality Modality Upper Extremities, Wrist Left Radiogr [facility] Imaging 12/28/2024 5:05 PM EDT Impressions 12/28/2024 5:07 PM EDT FINDINGS/IMPRESSION: Three views of the wrist. No visible fracture. Remote ulnar styloid injury. There is soft tissue swelling about the wrist. If there is snuffbox tenderness and an appropriate trauma history recommend casting and reimaging in 7-10 days to exclude an occult scaphoid fracture. -------- FINAL REPORT -------- Dictated By: Jeanette Ceja Dictated Date: 12/28/2024 17:05 ET Assigned Physician: Jeanette Ceja Reviewed and Electronically Signed By: Jeanette Ceja Signed Date: 12/28/2024 17:07 ET Workstation ID: [id number] Transcribed By: Self Edit Transcribed Date: 12/28/2024 17:05 ET Narrative 12/28/2024 5:07 PM EDT XR WRIST 3+ VIEWS LEFT INDICATION: pain TECHNIQUE: XR WRIST 3+ VIEWS LEFT COMPARISON: No priors available. Procedure Note Jeanette Ceja MD - 12/28/2024 XR WRIST 3+ VIEWS LEFT INDICATION: pain TECHNIQUE: XR WRIST 3+ VIEWS LEFT COMPARISON: No priors available. IMPRESSION: FINDINGS/IMPRESSION: Three views of the wrist. No visible fracture.Remote ulnar styloid injury. There is soft tissue swelling about thewrist. If there is snuffbox tenderness and an appropriate trauma historyrecommend casting and reimaging in 7-10 days to exclude an occult scaphoidfracture. -------- FINAL REPORT -------- Dictated By: Jeanette Ceja Dictated Date: 12/28/2024 17:05 ET Assigned Physician: Jeanette Ceja Reviewed and Electronically Signed By: Jeanette Ceja Signed Date: 12/28/2024 17:07 ET Workstation ID: [id number] Transcribed By: Self Edit Transcribed Date: 12/28/2024 17:05 ET Brian Pedroza MD IMG XR PROCEDURES Final Result from Last 3 Months Insurance [employer] [employer] Care Teams Vice President Of Brand Management Relationship Specialty Start Date End Date Physician, No Pcp PCP - General 09/29/24
--- OUTSIDE RECORDS SUMMARY | 2025-02-07 10:17 | XMS_ITS | Patient Health Record ---
Author Organization [facility] Address [address] [place] [address] Care Team Providers Care Riveter Helper Name Role Phone Vikram MADISON, Asma Primary Care Provider Iron Alas Jr Unavailable Reason For Referral No Information Medications Medication SIG (Take, Route, Fr equency, Duration) Notes Start Date End Date Status Spiriva Respimat Act sangita Aspir-81 81 MG 1 tablet Orally Once a day Active Vitamin D3 2000 UNIT 1 capsule Orally Once a day Active Social History Tobacco Use: Social History Observation Description Date Details (start date - stop date) Former Smoker NA - NA Tobacco Use/Smoking Question Answer Notes Patient is a former smoker How long has it been since you last smoked? > 10 years Alcohol Screen Question Answer Notes Did you have a drink containing alcohol in the p ast year? No Points 0 Interpretation Negative Problems Problem Type SNOMED Code ICD Code Onset Dates Problem Status W/U Status Risk Notes Problem [id number] Diarrhea, unspecified type (R19.7) Active confirmed Problem [id number] Leg cramps (R25.2) Active confirmed Plan Of Treatment No Information Insurance Providers Payer Name Payer Address Payer Phone Subscriber Number Group Number Insured Name Patient Relationship to Insured Coverage Start Date Coverage End Date [facility] [address] [place] [phone] [id number] IRMA STEEN Self - patient is the insured Medical (General) History Medical History History ICD Code Denies [place],DM,CVA,renal disease COPD elevated iron levels hx of leg cramps Surgical History Surgery Date(Month/Year) detached retina
== END 2025-02-07 09:40 | disposition home or self-care (01) ==
LOC: HO.BBR 09:39
PROVIDERS: PCP Internal Medicine; Visit Provider Internal Medicine
DX: Z13.89 Encounter for screening for other disorder (principal)

== ENCOUNTER 2025-02-13 06:57 | Emergency (ER) | payer MEDICARE, MEDICAID, SELFPAY ==
[2025-02-13 07:04] VITALS: BP 165/74; PULSE 73; RESP 16; TEMP 36.1; O2SAT 98; BMI 23.5
--- NOTE | 2025-02-13 08:06 | ED.SKABFB ---
HPI - Skin/Abscess/Foreign Bdy General Chief complaint: Skin/Abscess/Foreign Body Stated complaint: pain in neck Time Seen by Provider: 02/13/25 07:59 Source: patient and old records reviewed Mode of arrival: ambulatory Limitations: no limitations History of Present Illness ED Provider: SAAD GILLESPIE narrative: 70 yo male wtih PMH of BPH, COPD, anemia here with c/o who has had sensitive burning pain on R side of head for 4 days. He then thought it was a stiff neck. He has no trauma, numbness, weakness, fevers. He states the rash is very painful. He was seen at [facility] yesterday with CT scan and they told him it was a pinched nerve. He was given meloxicam and flexeril with no relief. He then noted blisters today on area that is painful. He has no hx of shingles. He has no lesions on his face. He has no other symptoms. He states he is in a lot of pain. MD complaint: rash Onset (ago): day(s) (1) Tetanus up to date: yes Location: neck Severity: moderate Pain Consistency: constant Relieving factors: none Exacerbating factors: palpation Context: other Associated symptoms: malaise Treatments prior to arrival: prescription analgesic Related Data Home Medications ?Medication ?Instructions ?Recorded ?Confirmed cyclobenzaprine 10 mg tablet 10 mg PO DAILY 02/12/25 02/12/25 meloxicam 15 mg tablet 15 mg PO DAILY 02/12/25 02/12/25 Previous Rx's ?Medication ?Instructions ?Recorded fluticasone 250 mcg-salmeterol 50 1 inh inhalation BID 30 days #60 ea 08/28/24 mcg/dose blistr powdr for inhalation (Wixela Inhub) finasteride 5 mg tablet 5 mg PO .MWF 90 days #36 tabs 10/19/24 naproxen 500 mg tablet 500 mg PO BID PRN pain 30 days #60 11/14/24 tabs hydrocodone 5 mg-acetaminophen 325 1 tab PO Q6H PRN pain #14 tabs 02/13/25 mg tablet valacyclovir 1 gram tablet 1,000 mg PO TID 7 days #21 tabs 02/13/25 (Valtrex) Allergies Allergy/AdvReac Type Severity Reaction Status Date / Time No Known Drug Allergies Allergy Unknown none Verified 02/13/25 07:06 DRYER SHEETS Allergy Intermediate HIVES Uncoded 12/04/24 10:02 Review of Systems Review of Systems: Constitutional : No Fever, No Chills ENT/Mouth : No sore throat, No Rhinorrhea Eyes: No Eye Pain, No Swelling, No Redness Cardiovascular : No Chest Pain, No SOB Respiratory : No Cough, No Sputum Gastrointestinal : No Nausea, No Vomiting, No Diarrhea, No abdominal Pain Genitourinary : No Dysuria, No Hematuria Musculoskeletal : No joint pain, No Myalgias, No Joint Swelling, pos neck pain Skin : No Skin Lesions, positive skin rash Neuro : No Weakness, No Numbness, No Headache All other systems reviewed and are negative PMFSH Past Medical History Attestation statement: The following information was validated with the patient. Source: old records reviewed Medical History COPD (chronic obstructive pulmonary disease) Encounter for removal of sutures Back pain of thoracolumbar region Colon cancer screening Medicare annual wellness visit, initial Skin cancer screening Blood pressure check Hereditary hemochromatosis Surgical History H/O eye surgery Hx of tonsillectomy H/O: vasectomy No pertinent past surgical history Social History Social History Household Members: Significant Other Housing: Other Housing Other:: trailor Are you a primary care transition coordinator to a significant other at home: No Alcohol intake: never Patient Tobacco Use Status: Former Tobacco user Tobacco use type: Cigarette e-Cigarette/Vaping Use: Never Used Advance Directives: No Advance Directives Information Provided: Yes service: No Current occupational status: retired Cognitive needs: No Hearing needs: Yes Vision needs: Yes Physical Exam Vital Signs: Vital Signs: Last Vital Signs Temp 97.0 F 02/13/25 08:14 Pulse 73 02/13/25 08:14 Resp 16 02/13/25 08:14 BP 165/74 H 02/13/25 08:14 Pulse Ox 98 02/13/25 08:14 O2 Del Method Room Air 02/13/25 08:14 BMI result Body Mass Index 23.5 Appearance: Alert. Oriented X3. No acute distress. Eyes: Pupils equal, round and reactive to light. ENT: Pharynx normal. Neck: Normal inspection. R posterior neck vesicles noted no secondary cellulitis noted - ear normal, eyes and tip of nose normal skin very sensitive to touch CVS: Normal heart rate and rhythm. Pulses normal. Respiratory: No respiratory distress. Breath sounds normal. Abdomen: Soft and nontender. Skin: Skin warm and dry. Normal skin color. Normal skin turgor. Extremities: No lower extremity edema. Neuro: Oriented X 3. No motor deficit. No sensory deficit. CN2-12 intact Medical Decision Making Medical Decision Making MDM Narrative: 70 yo male wtih PMH of BPH, COPD, anemia here with c/o vesicular rash on neck but no other involvement of face - he looks well he is not toxic no facial involvement. He will be started on valtrex and short course of pain medications he is having a lot of pain we did discuss risks. Differential Diagnosis Differential Diagnoses: The differential diagnosis associated with the presentation includes shingles, neck strain Admission/Observation Consideration of admission/observation: Escalation of care including admission/observation considered no toxic, no signs of facial or eye involvement, no confusion or fevers External Record Review External record reviewed: Outpatient record Prescription Management I considered prescription management with: Pain Medication and Antiviral Discharge Plan Discharge Clinical Impression: Shingles Qualifiers: Herpes zoster complications: without complications Qualified Code(s): B02.9 - Zoster without complications Patient Disposition: Home, Self-Care Instructions: Shingles (ED) Additional Instructions: stop taking the meloxicam and flexeril return for worsening pain, swelling, fevers, confusion, unable to tolerate medications if you notice rash near your eye or on the tip of your nose please seek medical care follow up with your doctor in 1 week Prescriptions: New valacyclovir [Valtrex] 1 gram tablet 1,000 mg PO TID 7 Days Qty: 21 0RF hydrocodone-acetaminophen 5-325 mg tablet 1 tab PO Q6H PRN (Reason: pain) Qty: 14 0RF Rx Instructions: partial fill okay; Partial Fill upon patient request. No Action fluticasone propion-salmeterol [Wixela Inhub] 250-50 mcg/dose blister with device 1 inh inhalation BID 30 Days Qty: 60 5RF finasteride 5 mg tablet 5 mg PO .MWF 90 Days Qty: 36 3RF Rx Instructions: This is a change from daily to Tuesday cyclobenzaprine 10 mg Tablet 10 mg PO DAILY meloxicam 15 mg Tablet 15 mg PO DAILY naproxen 500 mg tablet 500 mg PO BID PRN (Reason: pain) 30 Days Qty: 60 5RF Rx Instructions: Take it with food 12 hours apart as needed for hip pain Interventions: ED Discharge Assessment Last Done: 02/13/25 08:14 Discharge Date/Time: 02/13/25 08:14 Print Language: Algerian
--- OUTSIDE RECORDS SUMMARY | 2025-02-13 08:07 | XMS_ITS | Patient Health Record ---
Author Organization [facility] Address [address] [place] [address] Care Team Providers Care Energy Analyst Name Role Phone Vikram MADISON, Asma Primary [...] Problem Status W/U Status Risk Notes Problem [id number] Diarrhea, unspecified type (R19.7) Active confirmed Problem [id number] Leg cramps (R25.2) Active confirmed Plan Of Treatment No Information Insurance Providers Payer Name Payer Address Payer Phone Subscriber Number Group Number Insured Name Patient Relationship to Insured Coverage Start Date Coverage End Date [facility] [address] [place] [phone] [id number] IRMA STEEN Self - patient is the insured Medical (General) History Medical History History ICD Code Denies [place],DM,CVA,renal disease COPD elevated iron levels hx of leg cramps Surgical History Surgery Date(Month/Year) detached retina
[2025-02-13 08:14] VITALS: BP 165/74; PULSE 73; RESP 16; TEMP 36.1; O2SAT 98
== END 2025-02-13 08:14 | disposition home or self-care (01) ==
PROVIDERS: Emergency Provider Emergency Medicine; PCP Internal Medicine
DX: B02.9 Zoster without complications (principal); R51.9 Headache, unspecified; M43.6 Torticollis; R21 Rash and other nonspecific skin eruption; J44.9 Chronic obstructive pulmonary disease, unspecified
CPT/HCPCS: 99282; 99283

== ENCOUNTER 2025-02-27 13:36 | Outpatient (AMB) | payer MEDICARE, MEDICAID, SELFPAY ==
[2025-02-27 13:45] VITALS: BP 142/76; PULSE 77; O2SAT 96; BMI 23.1
--- NOTE | 2025-02-27 13:45 | A.OFFPC_ITS ---
Vital Signs 02/27/25 13:45 Height 5 ft 11 in Weight 166 lb BMI 23.1 BP 142/76 H Blood Pressure Location Lt brachial Position Sitting Pulse 77 Pulse Source Pulse Oximeter Pulse Oximetry (%) 96 Intake Visit Reasons: follow up/ shingles Allergies No Known Drug Allergies Allergy (Unknown, Verified 02/27/25 13:45) none DRYER SHEETS Allergy (Intermediate, Uncoded 12/04/24 10:02) HIVES Medication List - Last Reconciled 02/27/25 by Mikael Sue MD finasteride 5 mg PO .MWF 90 days fluticasone propion-salmeterol 250-50 mcg/dose (Wixela Inhub) 1 inh inhalation BID 30 days naproxen 500 mg PO BID PRN 30 days Tobacco use date assessed: 02/27/25 Fall risk assessment: No Falls in past year Last assessed Fall Risk: 02/27/25 Dental Screening Dental Screen Date: 02/27/25 Did you have a dental visit in the last 12 months?: Yes Did you have a dental problem in the last 6 months where you did not have access to dental care?: No Was dental information given to patient?: Patient has dentist HPI follow up/ shingles HPI Details Chief Complaint Persistent pain following a shingles outbreak. History of Present Illness The patient is a 70-year-old male presenting with persistent post-herpetic pain following a shingles outbreak. Shingles (Herpes Zoster): - Onset of symptoms included pain radiat ing from the back through the neck to the right side of the head. - Initial visit to [facility] ed in a diagnosis of a pinched nerve; the patient reported feeling tolerable pain during this visit but was later unable to sleep due to increasing pain. - The patient presented at [facility] on February 13, when further examination revealed a rash consistent with shingles. - Treatment from the hospital included V elociclovir and Percocet, with little relief reported; the patient indicated utilizing additional ibuprofen for pain management. - Current symptoms include persistent pa in which is particularly severe at night and during pressure on the affected areas; dry skin remains at the site of the healed rash. - Aggravating factors include sleeping o n the back, which increases discomfort. - Alleviating factors include ibuprofen, which provided partial relief. Medications: - Velociclovir for shingles, previously completed. - Percocet for pain, previously complete d. - Ibuprofen 600 mg, taken for pain relie f in addition to Percocet. Diagnostic Results: - Tests and Diagnostics: - CAT scan at [facility] indicated no pinched nerve upon evaluation. - Clinical evaluation at [facility] confirmed shingles through physical examination indicating a rash with associated symptoms. Problem List - Post-herpetic neuralgia - Shingles (history of, with resolved ra sh) Patient Instructions - Start the prescribed gabapentin at [facility] for pain management; adjust the dose as needed based on response. 1-2 capsules at night - It is okay to take ibuprofen alongside gabapentin if necessary. - Monitor symptoms and expect potential need for gabapentin for up to few days to few weeks - Consider vaccination against shingles after a couple of months. - Follow up by phone within two weeks to assess symptom control. Review of Systems - General: No fever no chills - Neurological: No headaches no dizziness - Ear nose throat: No sore throat no hearing difficulty no ear pain - Cardiovascular: No syncope, no chest pain, no palpitations - Gastrointestinal: No nausea vomiting or diarrhea - Endocrine: No polyuria polydipsia no heat intolerance - Genitourinary: No dysuria , no blood in urine Physical Exam General: No acute distress HEENT: No acute findings Neck: Pain going through the right side into the neck Respiratory system: Able to talk in full sentences, no audible wheeze Cardiovascular: S1-S2 regular in rate and rhythm Gastrointestinal: No pain Extremities: No new findings PLANT PACKER: Alert awake oriented x3 motor sensory intact Skin: Rash has healed, still a little bit of dry skin, bumps felt on right side of neck posteriorly [facility] Medical History COPD (chronic obstructive pulmonary disease) Encounter for removal of sutures Back pain of thoracolumbar region Colon cancer screening Medicare annual wellness visit, initial Skin cancer screening Blood pressure check Hereditary hemochromatosis Surgical History H/O eye surgery Hx of tonsillectomy H/O: vasectomy No pertinent past surgical history Social History Household Members: Significant Other Housing: Other Housing Other:: trailor Are you a primary care aid to a significant other at home: No Alcohol intake: never Patient Tobacco Use Status: Former Tobacco user Tobacco use type: Cigarette e-Cigarette/Vaping Use: Never Used service: No Current occupational status: retired Cognitive needs: No Hearing needs: Yes Vision needs: Yes Questionnaire Thrive Questionnaire Date Thrive assessed: 02/27/25 I am a: Patient What is your living situation today?: I have a steady place to live Within the past 12 months, did the food you bought not last and you didn't have the money to get more?: Never true Within the past 12 months, did you worry whether your food would run out before you got money to buy more?: Never true Do you have trouble paying for medicines?: No Do you have trouble getting transportation to medical appointments?: No Do you have trouble paying your heating and electricity bill?: No Do you have trouble taking care of your child, family member or friend?: No Do you have trouble with day-to-day activities such as bathing, preparing meals, shopping, managing finances, etc.?: No Are you currently unemployed and looking for a job?: No Are you interested in more education?: No Please select the resources that you would like help with: None Currently or been in a relationship where the following occur: No concerns reported THRIVE Score: 0 AUDIT C Alcohol Use Questionnaire (AUDIT-C) 1. How often do you have a drink containing alcohol?: Never 3. How often do you have six or more drinks on one occasion?: Never Total Score: 0 Score Reviewed/Action Taken: Yes RITU-7 AMB Questionnaire RITU-7 Date RITU - 7 assessed: 02/27/25 Feeling nervous, anxious, or on edge: 0 = Not at all Not being able to stop or control worryin = Not at all Worrying too much about different things: 0 = Not at all Trouble relaxin = Not at all Being so restless that it is hard to sit still: 0 = Not at all Becoming easily annoyed or irritable: 0 = Not at all Feeling afraid as if something awful might happen: 0 = Not at all Total RITU-7 score (0-4 normal; 5-9 mild; 10-14 moderate; 15-21 severe): 0 Source: Developed by Drs. Ck Martinez, Juju Murray, Juancho Guzman and colleagues, with an educational yenny from [employer]. RITU-7 Assessment Billing RITU-7 Assessment Tool: RITU-7 Assessment 17385 Physical exam (Primary Care) Vital Signs: Last Vital Signs Pulse 77 02/27/25 13:45 BP 142/76 H 02/27/25 13:45 Pulse Ox 96 02/27/25 13:45 BMI result Body Mass Index 23.1 Tobacco/Smoking Status: Tobacco use Status Tobacco use date assessed 02/27/25 02/27/25 13:48 Patient Tobacco Use Status Former Tobacco user 02/27/25 13:48 Tobacco use type Cigarette 02/27/25 13:48 e-Cigarette/Vaping Use Never Used 02/27/25 13:48 Thrive Assessment: Date of Thrive Assessment Date Thrive assessed 02/27/25 02/27/25 13:48 Currently or been in a relationship where the following occur: No concerns reported Coding Level of Care Code Est Pt Level 3 (49461) Diagnoses Post herpetic neuralgia B02.29 Additional Codes RITU-7 Assessment Billing - RITU-7 Assessment Tool: RITU-7 Assessment 69895 ([id number]) Assessment & Plan Assessment & Plan (1) Post herpetic neuralgia: Code(s): B02.29 - Other postherpetic nervous system involvement Category: Medical Plan Chief Complaint Persistent pain following a shingles outbreak. History of Present Illness The patient is a 70-year-old male presenting with persistent post-herpetic pain following a shingles outbreak. Shingles (Herpes Zoster): - Onset of symptoms included pain radiating from the back through the neck to the right side of the head. - Initial visit to [facility] resulted in a diagnosis of a pinched nerve; the patient reported feeling tolerable pain during this visit but was later unable to sleep due to increasing pain. - The patient presented at [facility] on February 13, when further examination revealed a rash consistent with shingles. - Treatment from the hospital included Velociclovir and Percocet, with little relief reported; the patient indicated utilizing additional ibuprofen for pain management. - Current symptoms include persistent pain which is particularly severe at night and during pressure on the affected areas; dry skin remains at the site of the healed rash. - Aggravating factors include sleeping on the back, which increases discomfort. - Alleviating factors include ibuprofen, which provided partial relief. Medications: - Velociclovir for shingles, previously completed. - Percocet for pain, previously completed. - Ibuprofen 600 mg, taken for pain relief in addition to Percocet. Diagnostic Results: - Tests and Diagnostics: - CAT scan at [facility] indicated no pinched nerve upon evaluation. - Clinical evaluation at [facility] confirmed shingles through physical examination indicating a rash with associated symptoms. Problem List - Post-herpetic neuralgia - Shingles (history of, with resolved rash) Patient Instructions - Start the prescribed gabapentin at night for pain management; adjust the dose as needed based on response. 1-2 capsules at night - It is okay to take ibuprofen alongside gabapentin if necessary. - Monitor symptoms and expect potential need for gabapentin for up to few days to few weeks - Consider vaccination against shingles after a couple of months. - Follow up by phone within two weeks to assess symptom control. Medications: New gabapentin 200 mg (2 x 100 mg) PO BEDTIME 60 caps 0RF 30 days
--- OUTSIDE RECORDS SUMMARY | 2025-02-27 14:03 | XMS_ITS | Clinical Summary ---
Author Organization [facility] Address [address] [place] [address] Phone Care Team Providers Care Firepot Operator And Tender Name Role Phone Physician, No Pcp Primary Care Provider Unavaila ble Allergies No known active allergies Medications finasteride (PROSCAR) 5 mg tablet Take 1 tablet (5 mg total) by mouth. 01/14/2025 Active Wixela Inhub 250-50 mcg/dose diskus inhaler Inhale 1 puff by mouth 2 (two) times a day. 01/26/2025 Active naproxen (NAPROSYN) 500 mg tablet Take 1 tablet (500 mg total) by mouth 2 (two) times a day if needed. 01/15/2025 Active cyclobenzaprine (FLEXERIL) 10 mg tabletIndicatio ns:Cervicalgia of occipito-atlant o-axial region Take 1 tablet (10 mg total) by mouth 3 (three) times a day if needed for muscle spasms for up to 10 days. 15 tablet 02/11/2025 Active meloxicam (MOBIC) 15 mg tablet Take 1 tablet (15 mg total) by mouth 1 (one) time each day for 10 days. 10 each 02/11/2025 Active Problems No known active problems Encounters Date Type Department Care Team Description 02/11/2025 8:08 AM EDT - 02/11/2025 11:30 AM EDT Emergency [facility] Emergency [address] [place] [address] Jerman Buchanan MD Cervicalgia of kcfjnwez-ijulyxt-hgua l region (Primary Dx) Discharge Disposition: Home or Self Care 12/28/2024 5:22 PM EDT - 12/28/2024 6:38 PM EDT Emergency [facility] Emergency [address] [place] [address] Contusion of left wrist, initial [...] Sign Reading Time Taken Comments Blood Pressure 164/77 02/11/2025 7:25 AM EDT Pulse 73 02/11/2025 7:25 AM EDT Temperature 36.4 C (97.6 F) 02/11/2025 7:25 AM EDT Respiratory Rate 20 02/11/2025 7:25 AM EDT Oxygen Saturation 98% 02/11/2025 7:25 AM EDT Inhaled Oxygen Concentration - - Weight 81.6 kg (180 lb) 02/11/2025 7:25 AM EDT Height 180.3 cm (5' 11 ) 02/11/2025 7:25 AM EDT Body Mass Index 25.1 02/11/2025 7:25 AM EDT Plan of Treatment Health Maintenance Due [...] Procedure Name Priority Date/Time Associated Diagnosis Comments ECG ANNOTATED 02/12/2025 CT HEAD WO CONTRAST STAT 02/11/2025 9 :56 AM EDT ECG 12-LEAD STAT 02/11/2025 8:34 AM EDT CBC WITH AUTO DIFFERENTIAL STAT 02/11/2025 8:25 AM EDT MAGNESIUM STAT 02/11/2025 8:25 AM EDT BASIC METABOLIC PANEL STAT 02/11/2025 8:25 AM EDT CBC AND DIFFERENTIAL STAT 02/11/2025 8:25 AM EDT XR WRIST 3+ VIEWS LEFT STAT 12/28/2024 5:00 PM EDT from Last 3 Months Results * ECG-Annotated (02/12/2025) us Provider Onbase MD ECG ORDERABLES Final Result * CT Head wo Contrast (02/11/2025 9:56 AM EDT) Anatomical Region Laterality Modality Head and Neck Computed Tomogra phy 02/11/2025 10:1 7 AM EDT Impressions 02/11/2025 10:18 AM EDT No acute intracranial abnormality -------- FINAL REPORT -------- Dictated By: FORREST VOGEL Dictated Date: 02/11/2025 10:17 ET Assigned Physician: FORREST VOGEL Reviewed and Electronically Signed By: FORREST VOGEL Signed Date: 02/11/2025 10:18 ET Workstation ID: [id number] Transcribed By: Self Edit Transcribed Date: 02/11/2025 10:17 ET Narrative 02/11/2025 10:18 AM EDT PROCEDURE: HEAD CT INDICATION: Headache TECHNIQUE: CT of the head without intravenous contrast. Multiplanar reformats. The examination was performed utilizing dose reduction techniques. Total DLP 809 COMPARISON: No priors available. FINDINGS: No acute territorial infarct, mass effect, or intracranial hemorrhage. Calloway-white differentiation is preserved. Brain parenchyma is normal Ventricles, sulci, and cisterns are normal in size and configuration. No hydrocephalus or volume loss. Visualized paranasal sinuses and mastoid air cells are clear. No scalp hematoma or skull fracture. Procedure Note Forrest Vogel MD - 02/11/2025 PROCEDURE: HEAD CT INDICATION: Headache TECHNIQUE: CT of the head without intravenous contrast. Multiplanarreformats. The examination was performed utilizing dose reductiontechniques. Total DLP 809 COMPARISON: No priors available. FINDINGS: No acute territorial infarct, mass effect, or intracranial hemorrhage. Calloway-white differentiation is preserved. Brain parenchyma is normal Ventricles, sulci, and cisterns are normal in size and configuration. Nohydrocephalus or volume loss. Visualized paranasal sinuses and mastoid air cells are clear. No scalp hematoma or skull fracture. IMPRESSION: No acute intracranial abnormality -------- FINAL REPORT -------- Dictated By: FORREST VOGEL Dictated Date: 02/11/2025 10:17 ET Assigned Physician: FORREST VOGEL Reviewed and Electronically Signed By: FORREST VOGEL Signed Date: 02/11/2025 10:18 ET Workstation ID: [id number] Transcribed By: Self Edit Transcribed Date: 02/11/2025 10:17 ET Jerman Buchanan MD IMG CT PROCEDURES Final Res ult * ECG 12 lead (02/11/2025 8:34 AM EDT) Pathologist [facility] Ventricular Rate ECG 55 BPM GEMUSE Atrial Rate 55 BPM GEMUSE P-R Interval 160 ms GEMUSE QRS Duration 86 ms GEMUSE Q-T Interval 426 ms GEMUSE QTc 407 ms GEMUSE P Wave Ranger 75 degrees GEMUSE R Ranger 27 degrees GEMUSE T Ranger 58 degrees GEMUSE ECG Interpretation Sinus bradycardia Otherwise normal ECG No previous ECGs available Confirmed by GENA MELTON ([id number]) on 02/11/2025 9:13:13 PM GEMUSE 02/11/2025 8:34 AM EDT 02/11/2025 9:13 PM EDT Jerman Buchanan MD ECG ORDERABLES Final Resul t GEMUSE * (ABNORMAL) CBC auto differential (02/11/2025 8:25 AM EDT) Pathologist [facility] WBC 4.6(L) 4.8 - 10.8 K/[facility] LAB HEMETOLOGY METHOD 02/11/2025 9:09 AM EDT [facility] RBC 3.40(L) 4.50 - 5.50 M/[facility] LAB HEMETOLOGY METHOD 02/11/2025 9:09 AM EDT [facility] Hemoglobin 11.4(L) 13.5 - 17.5 g/dL LAB HEMETOLOGY METHOD 02/11/2025 9:09 AM EDT [facility] Hematocrit 34.6(L) 42.0 - 54.0 % LAB HEMETOLOGY METHOD 02/11/2025 9:09 AM [facility] MCV 100.6(H) 79.0 - 98.0 FL LAB HEMETOLOGY METHOD 02/11/2025 9:09 AM [facility] MCH 33.1(H) 27.0 - 32.0 pcg LAB HEMETOLOGY METHOD 02/11/2025 9:09 AM [facility] MCHC 32.9 32.0 - 37.0 g/dL LAB HEMETOLOGY METHOD 02/11/2025 9:09 AM [facility] RDW 15.7(H) 11.0 - 15.0 % LAB HEMETOLOGY METHOD 02/11/2025 9:09 AM [facility] Platelets 255 130 - 400 K/mcL LAB HEMETOLOGY METHOD 02/11/2025 9:09 AM [facility] MPV 9.8 7.0 - 11.0 FL LAB HEMETOLOGY METHOD 02/11/2025 9:09 AM [facility] NRBC 0.0 <1.0 % LAB HEMETOLOGY METHOD 02/11/2025 9:09 AM [facility] NRBC Absolute 0.00 <0.10 K/mcL LAB HEMETOLOGY METHOD 02/11/2025 9:09 AM [facility] Neutrophils Relative 59.5 % LAB HEMETOLOGY METHOD 02/11/2025 9:09 AM [facility] Lymphocytes Relative 20.8 % LAB HEMETOLOGY METHOD 02/11/2025 9:09 AM [facility] Monocytes Relative 16.0 % LAB HEMETOLOGY METHOD 02/11/2025 9:09 AM [facility] Eosinophils Relative 2.6 % LAB HEMETOLOGY METHOD 02/11/2025 9:09 AM [facility] Basophils Relative 0.9 % LAB HEMETOLOGY METHOD 02/11/2025 9:09 AM EDT [facility] Immature Granulocytes Relative 0.2 % LAB HEMETOLOGY METHOD 02/11/2025 9:09 AM EDT [facility] Neutrophils Absolute 2.72 1.50 - 7.00 K/mcL LAB HEMETOLOGY METHOD 02/11/2025 9:09 AM EDT [facility] Lymphocytes Absolute 0.95(L) 1.00 - 5.00 K/mcL LAB HEMETOLOGY METHOD 02/11/2025 9:09 AM EDT [facility] Monocytes Absolute 0.73 0.20 - 1.00 K/mcL LAB HEMETOLOGY METHOD 02/11/2025 9:09 AM EDT [facility] Eosinophils Absolute 0.12 0.00 - 0.50 K/mcL LAB HEMETOLOGY METHOD 02/11/2025 9:09 AM EDT [facility] Basophils Absolute 0.04 0.00 - 0.20 K/mcL LAB HEMETOLOGY METHOD 02/11/2025 9:09 AM EDT [facility] Immature Granulocytes Absolute 0.01 0.00 - 0.03 K/mcL LAB HEMETOLOGY METHOD 02/11/2025 9:09 AM [facility] Blood Venous blood specimen / Unknown Venipuncture / Unknown 02/11/2025 8:25 AM EDT 02/11/2025 9:04 AM EDT us Jerman Buchanan MD LAB BLOOD ORDERABLES Final Result [facility] [address] [place] [address], * Magnesium (02/11/2025 8:25 AM EDT) Magnesium 1.9 1.9 - 2.6 mg/dL LAB CHEMISTRY METHOD 02/11/2025 9:26 AM [facility] Blood Venous blood specimen / Unknown Venipuncture / Unknown 02/11/2025 8:25 AM EDT 02/11/2025 9:04 AM EDT us Jerman Buchanan MD LAB BLOOD ORDERABLES Final Result [facility] [address] [place] [address], * (ABNORMAL) Basic metabolic panel (02/11/2025 8:25 AM EDT) Sodium 141 133 - 145 mmol/L LAB CHEMISTRY METHOD 02/11/2025 10:10 AM [facility] Potassium 4.3 3.5 - 5.5 mmol/L LAB CHEMISTRY METHOD 02/11/2025 10:10 AM [facility] Chloride 112(H) 96 - 110 mmol/L LAB CHEMISTRY METHOD 02/11/2025 10:10 AM [facility] CO2 25 21 - 32 mmol/L LAB CHEMISTRY METHOD 02/11/2025 10:10 AM [facility] Anion Gap 4 3 - 11 LAB CHEMISTRY METHOD 02/11/2025 10:10 AM [facility] Glucose 93 70 - 100 mg/dL LAB CHEMISTRY METHOD 02/11/2025 10:10 AM [facility] BUN 13 5 - 25 mg/dL LAB CHEMISTRY METHOD 02/11/2025 10:10 AM [facility] Creatinine 0.67(L) 0.70 - 1.30 mg/dL LAB CHEMISTRY METHOD 02/11/2025 10:10 AM [facility] eGFR 101 >=60 mL/min/1. 73m2 LAB CHEMISTRY METHOD 02/11/2025 10:10 AM [facility] Comment:Calculation based on the Chronic Kidney Disease Epidemiology Collaboration (CKD-EPI) equation refit without adjustment for race. BUN/Creatinine Ratio 19.4 LAB CHEMISTRY METHOD 02/11/2025 10:10 AM EDT [facility] Calcium 8.9 8.5 - 10.5 mg/dL LAB CHEMISTRY METHOD 02/11/2025 10:10 AM EDT [facility] Blood Venous blood specimen / Unknown Venipuncture / Unknown 02/11/2025 8:25 AM EDT 02/11/2025 9:04 AM EDT us Jerman Buchanan MD LAB BLOOD ORDERABLES Final Result [facility] [address] [place] [address], [place] [phone] * XR Wrist 3+ Views Left (12/28/2024 [...] Signed Date: 12/28/2024 17:07 ET Workstation ID: [id number] Transcribed By: Self Edit Transcribed Date: 12/28/2024 [...] Signed Date: 12/28/2024 17:07 ET Workstation ID: [id number] Transcribed By: Self Edit Transcribed Date: 12/28/2024 17:05 ET Brian Pedroza MD IMG XR PROCEDURES Final Result from Last 3 Months Insurance [employer] - [place] MEDICARE ADVANTAGE Care Teams Firepot Operator And Tender Relationship Specialty Start Date End Date Physician, No Pcp PCP - General 09/29/24
--- OUTSIDE RECORDS SUMMARY | 2025-02-27 14:04 | XMS_ITS | Patient Health Record ---
Author Organization [facility] Address [address] [place] [address] Care Team Providers Care Feed Preparation Operator Name Role Phone Vikram MADISON, Asma Primary Care Provider Iron Alas Jr Unavailable [phone] Reason For Referral No Information Medications Medication [...] Problem Status W/U Status Risk Notes Problem [id number] Diarrhea, unspecified type (R19.7) Active confirmed Problem [id number] Leg cramps (R25.2) Active confirmed Plan Of Treatment No Information Insurance Providers Payer Name Payer Address Payer Phone Subscriber Number Group Number Insured Name Patient Relationship to Insured Coverage Start Date Coverage End Date [facility] [address] [place] [phone] [id number] IRMA STEEN Self - patient is the insured Medical (General) History Medical History History ICD Code Denies AL,DM,CVA,renal disease COPD elevated iron levels hx of leg cramps Surgical History Surgery Date(Month/Year) detached retina
== END 2025-02-27 14:19 | disposition home or self-care (01) ==
LOC: HO.HMCC 13:37
PROVIDERS: PCP Internal Medicine; Visit Provider Internal Medicine
DX: B02.29 Other postherpetic nervous system involvement (principal)

== ENCOUNTER → 2025-02-27 13:36 | Outpatient (BNVA) | payer MEDICARE, MEDICAID, SELFPAY | PROVIDERS: PCP Internal Medicine; Visit Provider Internal Medicine | DX: B02.29 Other postherpetic nervous system involvement (principal) | CPT/HCPCS: 96127; 99212 ==

== ENCOUNTER 2025-03-14 09:53 | Outpatient (AMB) | payer MEDICARE, MEDICAID, SELFPAY ==
--- OUTSIDE RECORDS SUMMARY | 2025-03-13 23:59 | XMS_ITS | Continuity of Care Document ---
Author Organization [facility] Plastic Luigi allyson Address [address] [place] [address] [address] [place] [address]- Care Team Providers Care Mortgage Loan Specialist Name Role Phone Vikram MADISON, Asma Primary Care Physician [phone] Encounter [facility] Date(s): 03/06/25 - 03/13/25 [facility] Plastic Surgery [address] [place] [address]- Attending Physician: Lucita Coffman Referring Physician: Not on Staff, Referring MD Encounter Type: Office Visit Allergies, Adverse Reactions, Alerts No Known Allergies Immunizations Given and Recorded Vaccine Date Status Refusal Reason tetanus/diphtheria/pertussis, acel(Tdap) 03/01/25 Given Medications Albuterol (Eqv-ProAir HFA) 90 mcg/inh inhalation aerosol 2 puffs, Inhalation, Every 6 hours, PRN Dyspnea, # 1 each, 0 Refills, Maintenance, 07/18/21 12:16:00 PM EST, [id number], Partial fill upon patient request if the prescription is for a schedule II opioid drug., 2 puffs Inhalation Every 6 hours,PRN:Dyspnea, 180, cm, 07/18/21 5:41:00 EST, Height Start Date: 07/18/21 Status: Ordered Medication Dispense Status: Completed Quantity: 1.0 Unit: each Total Allowed Fills: 1 Fills Dispensed: 0 finasteride 5 mg oral tablet 1 tablet = 5 mg, By Mouth, Daily, # 30 tablet, 0 Refills, Maintenance, 07/14/21 4:07:00 PM EST, Tablet, Partial fill upon patient request if the prescription is for a schedule II opioid drug. Start Date: 07/14/21 Status: Ordered Medication Dispense Status: Completed Quantity: 30.0 Unit: tablet Total Allowed Fills: 1 Fills Dispensed: 0 fluticasone-vilanterol 200 mcg-25 mcg/inh inhalation powder 1 puffs, Inhalation, Daily, # 1 each, 0 Refills, Maintenance, 07/18/21 12:16:00 PM EST, Inhaler, [id number], Partial fill upon patient request if the prescription is for a schedule II opioid drug., 1 puffs Inhalation Daily,x60 days, 180, cm, 07/18/21 5:41:00 EST, Height Start Date: 07/18/21 Stop Date: 09/16/21 Status: Ordered Medication Dispense Status: Completed Quantity: 1.0 Unit: each Total Allowed Fills: 1 Fills Dispensed: 0 mupirocin 2% topical ointment 1 application, Topically, 2 times a day, for 10 days, apply a thin film to the affected area twice daily. Can apply once in the morning on clean skin and once in the evening before bedtime., # 22 Gm,0 Refills, Acute 03/16/25 11:46:00 AM EDT, 03/06/25 11:46:00 AM EDT, Ointment, [id number], Partial fill upon patient request if the prescription is for a schedule II opioid drug., 1 applicationTopically 2 times a day,x10 days,Instr:apply a thin film to the affected area twice daily. Can apply once in the morning on clean skin and once in the evening before bedtime., 181, cm, 03/06/25 10:51:00 EDT, Height, 75.8, kg, 03/01/25 15:55:00 EDT, Dry Weight Start Date: 03/06/25 Stop Date: 03/16/25 Status: Ordered Medication Dispense Status: Completed Quantity: 22.0 Unit: g Total Allowed Fills: 1 Fills Dispensed: 0 Spiriva Respimat 60 ACT 2.5 mcg/inh inhalation aerosol 0 Refills, Maintenance, 07/14/21 4:07:00 PM EST, Partial fill upon patient request if the prescription is for a schedule II opioid drug. Start Date: 07/14/21 Status: Ordered Medication Dispense Status: Completed Total Allowed Fills: 1 Fills Dispensed: 0 tamsulosin 0.4 mg oral capsule 0.4 mg, 1, capsule, By Mouth, Daily, # 30 capsule, Refills 0, Maintenance, 07/14/21 4:07:00 PM EST,Partial fill upon patient request if the prescription is for a schedule II opioid drug. Start Date: 07/14/21 Status: Ordered Medication Dispense Status: Completed Quantity: 30.0 Unit: capsule Total Allowed Fills: 1 Fills Dispensed: 0 Patient Care team information Care Team Personnel Name: Kristie Mcmillan RN Position: S RN Member Role: Primary Care Nurse Name: Delicia Medellin RN Position: S RN Member Role: Primary Care Nurse Name: Mikael Sue MD Position: Reference Physician Member Role: PCP Address: [address] Telecom: Name: Catrina Hess RN Position: [facility] RN Member Role: Primary Care Nurse Care Team Related Persons Name: YANI ROBLES Insurance Providers Guarantor name: KEREN Health Plan Information #: 1 Payer: [facility] PPO Payer Identifier: Member Number: [id number] Group Number: [id number] Subscriber Identifier: [id number] Relationship to Subscriber: self Coverage Type: Medicare PPO Coverage Verification Date: Telecom: Address: [facility] Information #: 2 Payer: [employer] Payer Identifier: Member Number: [id number] Group Number: Subscriber Identifier: [id number] Relationship to Subscriber: self Coverage Type: MEDICAID Coverage Verification Date: Telecom: Address:
--- NOTE | 2025-03-14 09:53 | MHC.PC.OV ---
Intake Visit Reasons: 2 weeks f/up RE Allergies No Known Drug Allergies Allergy (Unknown, Verified 02/27/25 13:45) none DRYER SHEETS Allergy (Intermediate, Uncoded 12/04/24 10:02) HIVES Medication List - Last Reconciled 03/14/25 by Mikael Sue MD finasteride 5 mg PO .MWF 90 days fluticasone propion-salmeterol 250-50 mcg/dose (Wixela Inhub) 1 inh inhalation BID 30 days gabapentin 200 mg (2 x 100 mg) PO BEDTIME 30 days naproxen 500 mg PO BID PRN 30 days Tobacco use date assessed: 02/27/25 Dental Screening Dental Screen Date: 02/27/25 HPI 2 weeks f/up RE HPI Details Chief Complaint Management of pain related to post-herpetic neuralgia. History of Present Illness The patient is a 70-year-old male presenting with post-herpetic neuralgia. Post-herpetic neuralgia: - Pain related to a prior herpes zoster infection has been managed with gabapentin 200 mg. - The medication was initiated 2 weeks ago for pain management. - The patient reports taking 2 capsules daily, specifically at night. - There is no indication that the pain significantly limits daily activities. - The pain is currently described as stable with ongoing medication use. - The patient plans to reduce the medication dosage after finishing the current bottle and monitor if he remains pain-free. Problem List - Post-herpetic neuralgia Patient Instructions - Continue taking gabapentin at the current dose until the current bottle is finished. - Reduce to one capsule per day when the bottle is nearly empty. - Monitor pain levels for three to four days after reducing the dose and discontinue if pain-free. Review of Systems - General: No fever no chills - Neurological: No headaches no dizziness - Ear nose throat: No sore throat no hearing difficulty no ear pain - Cardiovascular: No syncope, no chest pain, no palpitations - Gastrointestinal: No nausea vomiting or diarrhea [facility] Medical History COPD (chronic obstructive pulmonary disease) Encounter for removal of sutures Back pain of thoracolumbar region Colon cancer screening Medicare annual wellness visit, initial Skin cancer screening Blood pressure check Hereditary hemochromatosis Surgical History H/O eye surgery Hx of tonsillectomy H/O: vasectomy No pertinent past surgical history Social History Household Members: Significant Other Housing: Other Housing Other:: trailor Are you a primary after school caregiver to a significant other at home: No Alcohol intake: never Patient Tobacco Use Status: Former Tobacco user Tobacco use type: Cigarette e-Cigarette/Vaping Use: Never Used service: No Current occupational status: retired Cognitive needs: No Hearing needs: Yes Vision needs: Yes Questionnaire Thrive Questionnaire Date Thrive assessed: 02/27/25 RITU-7 AMB Questionnaire RITU-7 Date RITU - 7 assessed: 02/27/25 Source: Developed by Drs. Ck Martinez, Juju Murray, Juancho Guzman and colleagues, with an educational yenny from [employer]. Physical exam (Primary Care) Tobacco/Smoking Status: Tobacco use Status Tobacco use date assessed 02/27/25 02/27/25 13:48 Patient Tobacco Use Status Former Tobacco user 02/27/25 13:48 Tobacco use type Cigarette 02/27/25 13:48 e-Cigarette/Vaping Use Never Used 02/27/25 13:48 Thrive Assessment: Date of Thrive Assessment Date Thrive assessed 02/27/25 02/27/25 13:48 Telehealth Telehealth Telehealth Platform: [facility] Location of provider rendering services: practice address Location of patient: address on file Patient Identification confirmed using: Name, : Yes Telehealth method: voice only Patient verbally consented to treatment: Yes Patient verbally consented to billing insurance company: Yes Patient informed of any privacy concerns related to visit: Yes Minutes spent on Phone/Video with Pt.: 13 Coding Level of Care Code Tele Est Pt Level 3 (08261) Diagnoses Post herpetic neuralgia B02.29 Assessment & Plan Assessment & Plan (1) Post herpetic neuralgia: Code(s): B02.29 - Other postherpetic nervous system involvement Category: Medical Plan Chief Complaint Management of pain related to post-herpetic neuralgia. History of Present Illness The patient is a 70-year-old male presenting with post-herpetic neuralgia. Post-herpetic neuralgia: - Pain related to a prior herpes zoster infection has been managed with gabapentin 200 mg. - The medication was initiated 2 weeks ago for pain management. - The patient reports taking 2 capsules daily, specifically at night. - There is no indication that the pain significantly limits daily activities. - The pain is currently described as stable with ongoing medication use. - The patient plans to reduce the medication dosage after finishing the current bottle and monitor if he remains pain-free. Problem List - Post-herpetic neuralgia Patient Instructions - Continue taking gabapentin at the current dose until the current bottle is finished. - Reduce to one capsule per day when the bottle is nearly empty. - Monitor pain levels for three to four days after reducing the dose and discontinue if pain-free.
== END 2025-03-14 11:42 | disposition home or self-care (01) ==
PROVIDERS: PCP Internal Medicine; Visit Provider Internal Medicine
DX: B02.29 Other postherpetic nervous system involvement (principal)

== ENCOUNTER 2025-04-01 07:30 | Outpatient (AMB) | payer MEDICARE, MEDICAID, SELFPAY ==
--- OUTSIDE RECORDS SUMMARY | 2025-04-01 07:33 | XMS_ITS | Clinical Summary ---
Author Organization [facility] Address [address] [place] [address] Phone Care Team Providers Care Float Remover Name Role Phone Physician, No Pcp Primary [...] needed. 01/15/2025 Active cyclobenzaprine (FLEXERIL) 10 mg tabletIndication s:Cervicalgia of occipito-atlanto -axial region Take 1 tablet (10 mg total) by mouth 3 (three) times a day if needed for muscle spasms for up to 10 days. 15 tablet 02/11/2025 Active Active Problems No known active problems Encounters Date Type Department Care Team Description 02/11/2025 8:08 AM EDT - 02/11/2025 11:30 AM EDT Emergency [facility] Emergency [address] [place] [address] Jerman Buchanan MD Cervicalgia of ivdlxjbd-zbliblx-rspa l region (Primary Dx) Discharge Disposition: Home [...] 01/08/2006 Zoster Vaccines (1 of 2) 01/08/2006 Depression Screening 07/18/2024 Abdominal Aortic Aneurysm (AAA) Screen 09/29/2024 Cholesterol Screening (Lipid Panel) 09/29/2024 Colorectal Cancer Screening: Colonoscopy 09/29/2024 Falls Risk Assessment 09/29/2024 Hepatitis C Screening 09/29/2024 Medicare Annual Wellness Visit 09/29/2024 Social Influencers of Health Screening 09/29/2024 COVID-19 Vaccine (3 - 2024-2 6 season) 2025 08/29/2021, 08/08/2021 Influenza Vaccine (#1) 2025 RSV Immunization Adult [...] AND DIFFERENTIAL STAT 02/11/2025 8:25 AM EDT from Last 3 Months Results * [...] Signed Date: 02/11/2025 10:18 ET Workstation ID: [id number] Transcribed By: Self Edit Transcribed Date: 02/11/2025 [...] Signed Date: 02/11/2025 10:18 ET Workstation ID: [id number] Transcribed By: Self Edit Transcribed Date: 02/11/2025 10:17 ET us Jerman Buchanan MD IM CT PROCEDURES Final Res ult * ECG 12 lead (02/11/2025 8:34 AM EDT) Ventricular Rate ECG 55 BPM GEMUSE Atrial Rate 55 BPM GEMUSE P-R Interval 160 ms GEMUSE QRS Duration 86 ms GEMUSE Q-T Interval 426 ms GEMUSE QTc 407 ms GEMUSE P Wave [place] 75 degrees GEMUSE R [place] 27 degrees GEMUSE T [place] 58 degrees GEMUSE ECG Interpretation Sinus bradycardia Otherwise normal ECG No previous ECGs available Confirmed by GENA MELTON ([id number]) on 02/11/2025 9:13:13 PM GEMUSE 02/11/2025 8:34 AM EDT 02/11/2025 9:13 PM EDT us Jerman Buchanan MD ECG ORDERABLES Final Resul t GEMUSE * (ABNORMAL) CBC auto differential (02/11/2025 8:25 AM EDT) WBC 4.6(L) 4.8 - 10.8 K/mcL LAB HEMETOLOGY METHOD 02/11/2025 9:09 AM [facility] RBC 3.40(L) 4.50 - 5.50 M/mcL LAB HEMETOLOGY METHOD 02/11/2025 9:09 AM [facility] Hemoglobin 11.4(L) 13.5 - 17.5 g/dL LAB HEMETOLOGY METHOD 02/11/2025 9:09 AM [facility] Hematocrit 34.6(L) 42.0 - 54.0 % LAB HEMETOLOGY METHOD 02/11/2025 9:09 AM [facility] MCV 100.6(H) 79.0 - 98.0 FL LAB HEMETOLOGY METHOD 02/11/2025 9:09 AM [facility] MCH 33.1(H) 27.0 - 32.0 pcg LAB HEMETOLOGY METHOD 02/11/2025 9:09 AM [facility] MCHC 32.9 32.0 - 37.0 g/dL LAB HEMETOLOGY METHOD 02/11/2025 9:09 AM [facility] RDW 15.7(H) 11.0 - 15.0 % LAB HEMETOLOGY METHOD 02/11/2025 9:09 AM [facility] Platelets 255 130 - 400 K/mcL LAB HEMETOLOGY METHOD 02/11/2025 9:09 AM [facility] MPV 9.8 7.0 - 11.0 FL LAB HEMETOLOGY METHOD 02/11/2025 9:09 AM [facility] NRBC 0.0 <1.0 % LAB HEMETOLOGY METHOD 02/11/2025 9:09 AM [facility] NRBC Absolute 0.00 <0.10 K/mcL LAB HEMETOLOGY METHOD 02/11/2025 9:09 AM [facility] Neutrophils Relative 59.5 % LAB HEMETOLOGY METHOD 02/11/2025 9:09 AM [facility] Lymphocytes Relative 20.8 % LAB HEMETOLOGY METHOD 02/11/2025 9:09 AM [facility] Monocytes Relative 16.0 % LAB HEMETOLOGY METHOD 02/11/2025 9:09 AM [facility] Eosinophils Relative 2.6 % LAB HEMETOLOGY METHOD 02/11/2025 9:09 AM [facility] Basophils Relative 0.9 % LAB HEMETOLOGY METHOD 02/11/2025 9:09 AM [facility] Immature Granulocytes Relative 0.2 % LAB HEMETOLOGY METHOD 02/11/2025 9:09 AM [facility] Neutrophils Absolute 2.72 1.50 - 7.00 K/mcL LAB HEMETOLOGY METHOD 02/11/2025 9:09 AM [facility] Lymphocytes Absolute 0.95(L) 1.00 - 5.00 K/mcL LAB HEMETOLOGY METHOD 02/11/2025 9:09 AM [facility] Monocytes Absolute 0.73 0.20 - 1.00 K/mcL LAB HEMETOLOGY METHOD 02/11/2025 9:09 AM EDT [facility] Eosinophils Absolute 0.12 0.00 - 0.50 K/[facility] LAB HEMETOLOGY METHOD 02/11/2025 9:09 AM EDT [facility] Basophils Absolute 0.04 0.00 - 0.20 K/[facility] LAB HEMETOLOGY METHOD 02/11/2025 9:09 AM EDT [facility] Immature Granulocytes Absolute 0.01 0.00 - 0.03 K/[facility] LAB HEMETOLOGY METHOD 02/11/2025 9:09 AM EDT [facility] Blood Venous blood specimen / Unknown Venipuncture / Unknown 02/11/2025 8:25 AM EDT 02/11/2025 9:04 AM EDT Jerman Buchanan MD LAB BLOOD ORDERABLES Final Result Performing Organization Address City/[facility]/ZIP Co de Phone Number [facility] [address] [place] [address], [place] [phone] * Magnesium (02/11/2025 8:25 AM EDT) Magnesium 1.9 1.9 - 2.6 mg/dL LAB CHEMISTRY METHOD 02/11/2025 9:26 AM EDT [facility] Blood Venous blood specimen / Unknown Venipuncture / Unknown 02/11/2025 8:25 AM EDT 02/11/2025 9:04 AM EDT Jerman Buchanan MD LAB BLOOD ORDERABLES Final Result [facility] [address] [place] [address], [place] [phone] * (ABNORMAL) Basic metabolic panel (02/11/2025 8:25 AM EDT) Sodium 141 133 - 145 mmol/L LAB CHEMISTRY METHOD 02/11/2025 10:10 AM [facility] Potassium 4.3 3.5 - 5.5 mmol/L LAB CHEMISTRY METHOD 02/11/2025 10:10 AM [facility] Chloride 112(H) 96 - 110 mmol/L LAB CHEMISTRY METHOD 02/11/2025 10:10 AM [facility] CO2 25 21 - 32 mmol/L LAB CHEMISTRY METHOD 02/11/2025 10:10 AM [facility] Anion Gap 4 3 - 11 LAB CHEMISTRY METHOD 02/11/2025 10:10 AM [facility] Glucose 93 70 - 100 mg/dL LAB CHEMISTRY METHOD 02/11/2025 10:10 AM [facility] BUN 13 5 - 25 mg/dL LAB CHEMISTRY METHOD 02/11/2025 10:10 AM [facility] Creatinine 0.67(L) 0.70 - 1.30 mg/dL LAB CHEMISTRY METHOD 02/11/2025 10:10 AM [facility] eGFR 101 >=60 mL/min/1. 73m2 LAB CHEMISTRY METHOD 02/11/2025 10:10 AM [facility] Comment:Calculation based on the Chronic Kidney Disease Epidemiology Collaboration (CKD-EPI) equation refit without adjustment for race. BUN/Creatinine Ratio 19.4 LAB CHEMISTRY METHOD 02/11/2025 10:10 AM [facility] Calcium 8.9 8.5 - 10.5 mg/dL LAB CHEMISTRY METHOD 02/11/2025 10:10 AM [facility] Blood Venous blood specimen / Unknown Venipuncture / Unknown 02/11/2025 8:25 AM EDT 02/11/2025 9:04 AM EDT us Jerman Buchanan MD LAB BLOOD ORDERABLES Final Result [facility] [address] [place] [address], from Last 3 Months Insurance [employer] - [place] MEDICARE ADVANTAGE Care Teams Float Remover Relationship Specialty Start Date End Date Physician, No Pcp PCP - General 09/29/24
--- OUTSIDE RECORDS SUMMARY | 2025-04-01 07:33 | XMS_ITS | Patient Health Record ---
Author Organization [facility] Address [address] [place] [id number] Care Team Providers Care Comber Setter Name Role Phone Vikram MADISON, Asma Primary Care Provider Iron Alas Jr Unavailable Reason For Referral No Information Medications Medication SIG (Take, Route, Fr equency, Duration) Notes Start Date End Date Status Spiriva Respimat Act sangiat Aspir-81 81 MG 1 tablet Orally Once [...] Problem Status W/U Status Risk Notes Problem [id number] Diarrhea, unspecified type (R19.7) Active confirmed Problem [id number] Leg cramps (R25.2) Active confirmed Plan Of Treatment No Information Insurance Providers Payer Name Payer Address Payer Phone Subscriber Number Group Number Insured Name Patient Relationship to Insured Coverage Start Date Coverage End Date [facility] [address] [place] [address] [id number] IRMA STEEN Self - patient is the insured Medical (General) History Medical History History ICD Code Denies VA,DM,CVA,renal disease COPD elevated iron levels hx of leg cramps Surgical History Surgery Date(Month/Year) detached retina
--- NOTE | 2025-04-01 07:38 | A.OFFVIS_ITS ---
Intake Visit Reasons: 6m/PVR Intake Note: Patient presents today for a 6 MO follow-up Meds- Alfuzosin, VIT B Allergies to Antibiotic- No Known Allergies Blood Thinner- None Slot Attendant Required: No Accompanied by: Self / Same As Patient Allergies No Known Drug Allergies Allergy (Unknown, Verified 04/01/25 07:39) none DRYER SHEETS Allergy (Intermediate, Uncoded 12/04/24 10:02) HIVES [facility] Medical History COPD (chronic obstructive pulmonary disease) Encounter for removal of sutures Back pain of thoracolumbar region Colon cancer screening Medicare annual wellness visit, initial Skin cancer screening Blood pressure check Hereditary hemochromatosis Surgical History H/O eye surgery Hx of tonsillectomy H/O: vasectomy No pertinent past surgical history Social History Household Members: Significant Other Housing: Other Housing Other:: trailor Are you a primary child care assistant to a significant other at home: No Alcohol intake: never Patient Tobacco Use Status: Former Tobacco user Tobacco use type: Cigarette e-Cigarette/Vaping Use: Never Used service: No Current occupational status: retired Cognitive needs: No Hearing needs: Yes Vision needs: Yes Telehealth Telehealth Telehealth Platform: [employer] Location of provider rendering services: practice address Location of patient: address on file Patient Identification confirmed using: Name, : Yes Telehealth method: video Patient verbally consented to treatment: Yes Patient verbally consented to billing insurance company: Yes Patient informed of any privacy concerns related to visit: Yes Coding
--- NOTE | 2025-04-01 07:49 | A.OFFVIS_ITS ---
Intake Visit Reasons: 6m/PVR Intake Note: Patient presents today for a follow-up on: poor urinary stream and erectile dysfunction Meds- Finasteride Allergies to Antibiotic- No Known Allergies Blood Thinner- None Post Void Residual: 18 mls Radio Rigger Required: No Accompanied by: Self / Same As Patient Allergies No Known Drug Allergies Allergy (Unknown, Verified 04/01/25 08:52) none DRYER SHEETS Allergy (Intermediate, Uncoded 04/01/25 08:52) HIVES Medication List - Last Reconciled 04/01/25 by NI Childers-BRITANY finasteride 5 mg PO .MWF 90 days fluticasone propion-salmeterol 250-50 mcg/dose (Wixela Inhub) 1 inh inhalation BID 30 days gabapentin 200 mg (2 x 100 mg) PO BEDTIME 30 days HPI Comments Details: Erick Fields is a very pleasant 70-year-old male patient of Dr. Sue. He has a PMH of COPD and hemochromatosis. He presents to the office today for follow-up of his lower urinary tract symptoms and erectile dysfunction. In discussion with the patient today reports to be doing and feeling well. When asked he denies having had any bothersome urinary issues or concerns since his last office visit here. He reports compliance with finasteride 3 times per week. In office urinalysis results reviewed with the patient today. PVR 18 mL. Previous workup has included a retroperitoneal ultrasound 02/06 noting right kidney with no calculi or hydronephrosis. Multiple peripelvic cysts largest measuring 1.7 cm in the mid pole. No imaging follow-up is recommended per radiology report. Left kidney with no calculi or hydronephrosis. Multiple peripelvic cysts. No imaging follow-up is recommended per radiology report. The bladder is well distended and normal. Pre void bladder volume is approximately 450 mL. Postvoid bladder volume is approximately 160 mL. Prostate volume is approximately 20 mL. He otherwise denies urinary urgency, urinary frequency, incontinence, nocturia, hematuria, dysuria, foul smelling urine, flank pain, fever, and or chills. He does report erectile dysfunction however does not find this bothersome as he has not sexually active. He otherwise offers no other issues or concerns at this time. PSA: 02/06 0.1, 10/09 0.3 PFSH Medical History COPD (chronic obstructive pulmonary disease) Encounter for removal of sutures Back pain of thoracolumbar region Colon cancer screening Medicare annual wellness visit, initial Skin cancer screening Blood pressure check Hereditary hemochromatosis Surgical History H/O eye surgery Hx of tonsillectomy H/O: vasectomy No pertinent past surgical history Social History Household Members: Significant Other Housing: Other Housing Other:: trailor Are you a primary ambulatory care coordinator to a significant other at home: No Alcohol intake: never Patient Tobacco Use Status: Former Tobacco user Tobacco use type: Cigarette e-Cigarette/Vaping Use: Never Used service: No Current occupational status: retired Cognitive needs: No Hearing needs: Yes Vision needs: Yes Review of Systems Const All systems reviewed & are unremarkable except as noted in HPI and below Eyes Reports no additional complaints ENT Reports no additional complaints Card Denies chest pain, Denies irregular heart rhythm and Denies leg edema Resp Reports as per HPI GI Reports no additional complaints Reports other (Being treated for BPH) Musc Reports no additional complaints Skin/Breast Reports system reviewed and no additional complaints, except as documented Neuro Reports no additional complaints Psych Reports no additional complaints Kirit/Lymph Reports as per HPI Physical Exam Const General: cooperative, healthy appearing, comfortable, no acute distress, well developed, alert and awake Nutritional Appearance: average body habitus Orientation/consciousness: patient oriented x3 Limitations: no limitations HEENT Head: Yes normal to inspection, Yes normocephalic and Yes atraumatic Ears: hearing grossly normal bilaterally (bilateral hearing aids present ) Eyes General: appearance normal, both eyes and all related structures Neck Neck: Yes normal visual inspection and Yes trachea midline Chest Chest palpation & inspection: normal inspection of the chest Resp Effort & Inspection: normal respiratory effort and able to speak in complete sentences Cardio Rate: regular rate GI Inspection: Yes normal to inspection General: Yes no CVA tenderness Back/Spine/Pelvis Back: no CVA tenderness Skin General skin exam: no rashes or lesions noted Neuro General: patient oriented x3 Extrem General: Yes normal to inspection Psych Appearance: grossly normal and well kempt Mental Status: mental status grossly normal Speech and movement: Normal speech and movement present and Clear speech present Affect: normal affect Attitude: cooperative Thought process: Normal thought process present Thought content: Normal thought content present Insight: Fair insight present (Psych) Judgement: Fair judgement present (Psych) Office Procedures Post Void Residual Post Residual Void Post Void Residual (PVR): 18 [id number] Void Residual by ultrasound Results AMB Urinalysis, Automated UA Leukoctes 0 Chente/uL Last Edit by INGRID Peralta on 04/01/25 08:22 UA Nitrite Last Edit by INGRID Peralta on 04/01/25 08:22 UA Urobilinogen 3.5 mg/dL Last Edit by INGRID Peralta on 04/01/25 08:2 2 UA Protein 0 mg/dL Last Edit by INGRID Peralta on 04/01/25 08:22 UA pH 6.0 Last Edit by INGRID Peralta on 04/01/25 08:22 UA Blood 0 Porter/uL Last Edit by INGRID Peralta on 04/01/25 08:22 UA Specific Melville 1.010 Last Edit by INGRID Peralta on 04/01/25 08: 22 UA Ketone Last Edit by INGRID Peralta on 04/01/25 08:22 UA Bilirubin 0 mg/dL Last Edit by INGRID Peralta on 04/01/25 08:22 UA Glucose 0 mg/dL Last Edit by INGRID Peralta on 04/01/25 08:22 Results Reviewed Results Reviewed: Laboratory Last Values Urine pH (Auto) 6.0 04/01/25 08:21 Specific Melville (Auto) 1.010 04/01/25 08:21 Urine Protein (Auto) 0 mg/dL 04/01/25 08:21 Glucose (UA)(Auto) 0 mg/dL 04/01/25 08:21 Urine Blood (Auto) 0 Porter/uL 04/01/25 08:21 Urine Bilirubin (Auto) 0 mg/dL 04/01/25 08:21 Urine Urobilinogen (Auto) 3.5 mg/dL 04/01/25 08:21 Leukocyte Esterase (Auto) 0 Chente/uL 04/01/25 08:21 Assessment & Plan Assessment & Plan (1) Parapelvic renal cyst: Code(s): N28.1 - Cyst of kidney, acquired Category: Medical (2) Erectile dysfunction: Code(s): N52.9 - Male erectile dysfunction, unspecified Category: Medical (3) Weak urinary stream: Code(s): R39.12 - Poor urinary stream Category: Medical (4) BPH (benign prostatic hyperplasia): Code(s): N40.0 - Benign prostatic hyperplasia without lower urinary tract symptoms Category: Medical Qualifiers: Lower urinary tract symptom detail: nocturia Lower urinary tract symptom presence: symptoms present Qualified Code(s): N40.1 - Benign prostatic hyperplasia with lower urinary tract symptoms; R35.1 - Nocturia Plan In office urinalysis results reviewed with the patient today; as noted above. Recent PSA results reviewed with the patient today; as noted above. PVR 18mL. Patient currently denies any bothersome urinary issues or concerns. Reports be happy with current voiding parameters. Continue finasteride 3 times per week; as discussed and prescribed. Will continue with surveillance monitoring. Follow-up in 6 months with PSA & PVR; or sooner with any issues, concerns, and or questions. Orders: Orders AMB Post Void Residual by ultrasound Today N40.1 - Benign prostatic hyperplasia with lower urinary tract symptoms, R35.1 - Nocturia AMB Urinalysis Automated Today Z13.9 - Encounter for screening, unspecified Prostate Specific Antigen 6 Months N40.1 - Benign prostatic hyperplasia with lower urinary tract symptoms, N52.9 - Male erectile dysfunction, unspecified, R35.1 - Nocturia Patient Instructions: The patient had an opportunity to ask questions regarding the treatment plan. All questions were answered. Physical exam, labs, and imaging were discussed and reviewed in detail. As well as risks, benefits, and discussion of treatment choices. No major barriers to understanding were identified. The patient expressed understanding and agreement with the above treatment plan. The patient was made aware they should contact our office by phone for worsening of their current condition, the appearance of new symptoms, or with any question s or concerns. Compliance is encouraged with any medications and follow up testing that is ordered. It is a privilege to be allowed the opportunity to participate in? your urological care.? Again, if you have any questions or concerns If you have any questions or concerns please do not hesitate to contact me. The office is [phone]. This note is constructed using voice recognition software. While every effort has been made to ensure accuracy library helper errors may have been included. Yours sincerely, RENATE Childers Coding Level of Care Code Est Pt Level 3 (69906) Diagnoses Parapelvic renal cyst N28.1 Erectile dysfunction N52.9 Weak urinary stream R39.12 Benign prostatic hyperplasia with nocturia N40.1; R35.1 Lower urinary tract symptom detail: nocturia Lower urinary tract symptom presence: symptoms present CPT Codes Post Residual Void - PVR CPT Code: 60921-Udlm Void Residual by ultrasound ([id number])
== END 2025-04-01 08:40 | disposition home or self-care (01) ==
LOC: HO.HUSH 07:30
PROVIDERS: PCP Internal Medicine; Visit Provider Nurse Practitioner Family
DX: N40.1 Benign prostatic hyperplasia with lower urinary tract symptoms (principal); N28.1 Cyst of kidney, acquired; N52.9 Male erectile dysfunction, unspecified; R39.12 Poor urinary stream; R35.1 Nocturia; Z13.9 Encounter for screening, unspecified
CPT/HCPCS: 99213

== ENCOUNTER → 2025-04-01 07:30 | Outpatient (BNVA) | payer MEDICARE, MEDICAID, SELFPAY | PROVIDERS: PCP Internal Medicine; Visit Provider Nurse Practitioner Family | DX: N40.1 Benign prostatic hyperplasia with lower urinary tract symptoms (principal); N28.1 Cyst of kidney, acquired; N52.9 Male erectile dysfunction, unspecified; R39.12 Poor urinary stream | CPT/HCPCS: 51798; 81003; 99212 ==

== ENCOUNTER 2025-04-19 08:51 | Outpatient (REF) | payer MEDICARE, MEDICAID, SELFPAY ==
--- OUTSIDE RECORDS SUMMARY | 2025-04-19 09:17 | XMS_ITS | Clinical Summary ---
Author Organization [facility] Address [address] [place] [address] Phone Care Team Providers Care Clay Roaster Name Role Phone Physician, No Pcp Primary [...] EDT - 02/11/2025 11:[address] [facility] Emergency [address] [place] [address] Jerman Buchanan MD Cervicalgia of pinatkib-ozwnrgq-oyyd l region (Primary Dx) Discharge Disposition: Home or Self Care from Last 3 Months Immunizations Immunization Administration Dates Next Due Tdap Tetanus diptheria [...] Health Maintenance Due Date Last Done Comments Colorectal Cancer Screening: Colonoscopy 1955 Pneumococcal Vaccine: 50+ Years (1 of 1 - PCV) 01/08/2006 Zoster Vaccines (1 of 2) 01/08/2006 Depression Screening 07/18/2024 Abdominal Aortic Aneurysm (AAA) Screen 09/29/2024 Cholesterol Screening (Lipid Panel) 09/29/2024 Falls Risk Assessment 09/29/2024 Hepatitis C [...] Signed Date: 02/11/2025 10:18 ET Workstation ID: [id number] Transcribed By: Self Edit Transcribed Date: 02/11/2025 [...] Signed Date: 02/11/2025 10:18 ET Workstation ID: [id number] Transcribed By: Self Edit Transcribed Date: 02/11/2025 10:17 ET us Jerman Buchanan MD IM CT PROCEDURES Final Res ult * ECG 12 lead (02/11/2025 8:34 AM EDT) Ventricular Rate ECG 55 BPM GEMUSE Atrial Rate 55 BPM GEMUSE P-R Interval 160 ms GEMUSE QRS Duration 86 ms GEMUSE Q-T Interval 426 ms GEMUSE QTc 407 ms GEMUSE P Wave Garvin 75 degrees GEMUSE R Garvin 27 degrees GEMUSE T Garvin 58 degrees GEMUSE ECG Interpretation Sinus bradycardia Otherwise normal ECG No previous ECGs available Confirmed by GENA MELTON ([id number]) on 02/11/2025 9:13:13 PM GEMUSE 02/11/2025 8:34 AM EDT 02/11/2025 9:13 PM EDT us Jerman Buchanan MD ECG ORDERABLES Final Resul t GEMUSE * (ABNORMAL) CBC auto differential (02/11/2025 8:25 AM EDT) WBC 4.6(L) 4.8 - 10.8 K/mcL LAB HEMETOLOGY METHOD 02/11/2025 9:09 AM [facility] RBC 3.40(L) 4.50 - 5.50 M/mcL LAB HEMETOLOGY METHOD 02/11/2025 9:09 AM [facility] Hemoglobin 11.4(L) 13.5 - 17.5 g/dL LAB HEMETOLOGY METHOD 02/11/2025 9:09 AM [facility] Hematocrit 34.6(L) 42.0 - 54.0 % LAB HEMETOLOGY METHOD 02/11/2025 9:09 AM [facility] MCV 100.6(H) 79.0 - 98.0 FL LAB HEMETOLOGY METHOD 02/11/2025 9:09 AM [facility] MCH 33.1(H) 27.0 - 32.0 pcg LAB HEMETOLOGY METHOD 02/11/2025 9:09 AM [facility] MCHC 32.9 32.0 - 37.0 g/dL LAB HEMETOLOGY METHOD 02/11/2025 9:09 AM [facility] RDW 15.7(H) 11.0 - 15.0 % LAB HEMETOLOGY METHOD 02/11/2025 9:09 AM [facility] Platelets 255 130 - 400 K/mcL LAB HEMETOLOGY METHOD 02/11/2025 9:09 AM [facility] MPV 9.8 7.0 - 11.0 FL LAB HEMETOLOGY METHOD 02/11/2025 9:09 AM [facility] NRBC 0.0 <1.0 % LAB HEMETOLOGY METHOD 02/11/2025 9:09 AM [facility] NRBC Absolute 0.00 <0.10 K/mcL LAB HEMETOLOGY METHOD 02/11/2025 9:09 AM [facility] Neutrophils Relative 59.5 % LAB HEMETOLOGY METHOD 02/11/2025 9:09 AM [facility] Lymphocytes Relative 20.8 % LAB HEMETOLOGY METHOD 02/11/2025 9:09 AM [facility] Monocytes Relative 16.0 % LAB HEMETOLOGY METHOD 02/11/2025 9:09 AM [facility] Eosinophils Relative 2.6 % LAB HEMETOLOGY METHOD 02/11/2025 9:09 AM [facility] Basophils Relative 0.9 % LAB HEMETOLOGY METHOD 02/11/2025 9:09 AM [facility] Immature Granulocytes Relative 0.2 % LAB HEMETOLOGY METHOD 02/11/2025 9:09 AM [facility] Neutrophils Absolute 2.72 1.50 - 7.00 K/mcL LAB HEMETOLOGY METHOD 02/11/2025 9:09 AM [facility] Lymphocytes Absolute 0.95(L) 1.00 - 5.00 K/mcL LAB HEMETOLOGY METHOD 02/11/2025 9:09 AM [facility] Monocytes Absolute 0.73 0.20 - 1.00 K/mcL LAB HEMETOLOGY METHOD 02/11/2025 9:09 AM EDT [facility] Eosinophils Absolute 0.12 0.00 - 0.50 K/[facility] LAB HEMETOLOGY METHOD 02/11/2025 9:09 AM EDT [facility] Basophils Absolute 0.04 0.00 - 0.20 K/[facility] LAB HEMETOLOGY METHOD 02/11/2025 9:09 AM EDT [facility] Immature Granulocytes Absolute 0.01 0.00 - 0.03 K/[facility] LAB HEMETOLOGY METHOD 02/11/2025 9:09 AM EDT [facility] Blood Venous blood specimen / Unknown Venipuncture / Unknown 02/11/2025 8:25 AM EDT 02/11/2025 9:04 AM EDT Jerman Buchanan MD LAB BLOOD ORDERABLES Final Result Performing Organization Address City/[facility]/ZIP Co de Phone Number [facility] [address] [place] [address], [place] [phone] * Magnesium (02/11/2025 8:25 AM EDT) Magnesium 1.9 1.9 - 2.6 mg/dL LAB CHEMISTRY METHOD 02/11/2025 9:26 AM EDT [facility] Blood Venous blood specimen / Unknown Venipuncture / Unknown 02/11/2025 8:25 AM EDT 02/11/2025 9:04 AM EDT Jerman Buchanan MD LAB BLOOD ORDERABLES Final Result [facility] [address] [place] [address], [place] [phone] * (ABNORMAL) Basic metabolic panel (02/11/2025 8:25 AM EDT) Sodium 141 133 - 145 mmol/L LAB CHEMISTRY METHOD 02/11/2025 10:10 AM [facility] Potassium 4.3 3.5 - 5.5 mmol/L LAB CHEMISTRY METHOD 02/11/2025 10:10 AM [facility] Chloride 112(H) 96 - 110 mmol/L LAB CHEMISTRY METHOD 02/11/2025 10:10 AM [facility] CO2 25 21 - 32 mmol/L LAB CHEMISTRY METHOD 02/11/2025 10:10 AM [facility] Anion Gap 4 3 - 11 LAB CHEMISTRY METHOD 02/11/2025 10:10 AM [facility] Glucose 93 70 - 100 mg/dL LAB CHEMISTRY METHOD 02/11/2025 10:10 AM [facility] BUN 13 5 - 25 mg/dL LAB CHEMISTRY METHOD 02/11/2025 10:10 AM [facility] Creatinine 0.67(L) 0.70 - 1.30 mg/dL LAB CHEMISTRY METHOD 02/11/2025 10:10 AM [facility] eGFR 101 >=60 mL/min/1. 73m2 LAB CHEMISTRY METHOD 02/11/2025 10:10 AM [facility] Comment:Calculation based on the Chronic Kidney Disease Epidemiology Collaboration (CKD-EPI) equation refit without adjustment for race. BUN/Creatinine Ratio 19.4 LAB CHEMISTRY METHOD 02/11/2025 10:10 AM [facility] Calcium 8.9 8.5 - 10.5 mg/dL LAB CHEMISTRY METHOD 02/11/2025 10:10 AM [facility] Blood Venous blood specimen / Unknown Venipuncture / Unknown 02/11/2025 8:25 AM EDT 02/11/2025 9:04 AM EDT us Jerman Buchanan MD LAB BLOOD ORDERABLES Final Result [facility] [address] [place] [address], from Last 3 Months Insurance [employer] - [place] MEDICARE ADVANTAGE Care Teams Clay Roaster Relationship Specialty Start Date End Date Physician, No Pcp PCP - General 09/29/24
--- OUTSIDE RECORDS SUMMARY | 2025-04-19 09:17 | XMS_ITS | Patient Health Record ---
Author Organization [facility] Address [address] [place] [id number] Care Team Providers Care Clay Thrower Name Role Phone Vikram MADISON, Asma Primary Care Provider Iron Alas Jr Unavailable [phone] Reason For Referral No Information Medications Medication [...] Problem Status W/U Status Risk Notes Problem [id number] Diarrhea, unspecified type (R19.7) Active confirmed Problem [id number] Leg cramps (R25.2) Active confirmed Plan Of Treatment No Information Insurance Providers Payer Name Payer Address Payer Phone Subscriber Number Group Number Insured Name Patient Relationship to Insured Coverage Start Date Coverage End Date [facility] [address] [place] [address] [id number] IRMA STEEN Self - patient is the insured Medical (General) History Medical History History ICD Code Denies [place],DM,CVA,renal disease COPD elevated iron levels hx of leg cramps Surgical History Surgery Date(Month/Year) detached retina
== END 2025-04-19 08:52 | disposition home or self-care (01) ==
LOC: HO.BBR 08:51
PROVIDERS: PCP Internal Medicine; Visit Provider Internal Medicine
DX: Z13.89 Encounter for screening for other disorder (principal)

== ENCOUNTER 2025-04-23 13:51 | Outpatient (REF) | payer MEDICARE, MEDICAID, SELFPAY ==
--- OUTSIDE RECORDS SUMMARY | 2025-04-23 17:05 | XMS_ITS | Clinical Summary ---
Author Organization [facility] Address [address] [place] [address] Phone Care Team Providers Care Scientist Electronics Name Role Phone Physician, No Pcp Primary [...] EDT - 02/11/2025 11:30 AM EDT Emergency [facility] Emergency [address] [place] [address] Jerman Buchanan MD Cervicalgia of rzetfftm-vaybhog-zjnt l region (Primary Dx) Discharge Disposition: Home [...] Signed Date: 02/11/2025 10:18 ET Workstation ID: [id number] Transcribed By: Self Edit Transcribed Date: 02/11/2025 [...] Signed Date: 02/11/2025 10:18 ET Workstation ID: [id number] Transcribed By: Self Edit Transcribed Date: 02/11/2025 10:17 ET us Jerman Buchanan MD IM CT PROCEDURES Final Res ult * ECG 12 lead (02/11/2025 8:34 AM EDT) Ventricular Rate ECG 55 BPM GEMUSE Atrial Rate 55 BPM GEMUSE P-R Interval 160 ms GEMUSE QRS Duration 86 ms GEMUSE Q-T Interval 426 ms GEMUSE QTc 407 ms GEMUSE P Wave [place] 75 degrees GEMUSE R [place] 27 degrees GEMUSE T [place] 58 degrees GEMUSE ECG Interpretation Sinus bradycardia Otherwise normal ECG No previous ECGs available Confirmed by GENA MELTON ([id number]) on 02/11/2025 9:13:13 PM GEMUSE 02/11/2025 8:34 AM EDT 02/11/2025 9:13 PM EDT us Jerman Buchanan MD ECG ORDERABLES Final Resul t GEMUSE * (ABNORMAL) CBC auto differential (02/11/2025 8:25 AM EDT) WBC 4.6(L) 4.8 - 10.8 K/mcL LAB HEMETOLOGY METHOD 02/11/2025 9:09 AM [facility] RBC 3.40(L) 4.50 - 5.50 M/mcL LAB HEMETOLOGY METHOD 02/11/2025 9:09 AM [facility] Hemoglobin 11.4(L) 13.5 - 17.5 g/dL LAB HEMETOLOGY METHOD 02/11/2025 9:09 AM [facility] Hematocrit 34.6(L) 42.0 - 54.0 % LAB HEMETOLOGY METHOD 02/11/2025 9:09 AM [facility] MCV 100.6(H) 79.0 - 98.0 FL LAB HEMETOLOGY METHOD 02/11/2025 9:09 AM [facility] MCH 33.1(H) 27.0 - 32.0 pcg LAB HEMETOLOGY METHOD 02/11/2025 9:09 AM [facility] MCHC 32.9 32.0 - 37.0 g/dL LAB HEMETOLOGY METHOD 02/11/2025 9:09 AM [facility] RDW 15.7(H) 11.0 - 15.0 % LAB HEMETOLOGY METHOD 02/11/2025 9:09 AM [facility] Platelets 255 130 - 400 K/mcL LAB HEMETOLOGY METHOD 02/11/2025 9:09 AM [facility] MPV 9.8 7.0 - 11.0 FL LAB HEMETOLOGY METHOD 02/11/2025 9:09 AM [facility] NRBC 0.0 <1.0 % LAB HEMETOLOGY METHOD 02/11/2025 9:09 AM [facility] NRBC Absolute 0.00 <0.10 K/mcL LAB HEMETOLOGY METHOD 02/11/2025 9:09 AM [facility] Neutrophils Relative 59.5 % LAB HEMETOLOGY METHOD 02/11/2025 9:09 AM [facility] Lymphocytes Relative 20.8 % LAB HEMETOLOGY METHOD 02/11/2025 9:09 AM [facility] Monocytes Relative 16.0 % LAB HEMETOLOGY METHOD 02/11/2025 9:09 AM [facility] Eosinophils Relative 2.6 % LAB HEMETOLOGY METHOD 02/11/2025 9:09 AM [facility] Basophils Relative 0.9 % LAB HEMETOLOGY METHOD 02/11/2025 9:09 AM [facility] Immature Granulocytes Relative 0.2 % LAB HEMETOLOGY METHOD 02/11/2025 9:09 AM [facility] Neutrophils Absolute 2.72 1.50 - 7.00 K/mcL LAB HEMETOLOGY METHOD 02/11/2025 9:09 AM [facility] Lymphocytes Absolute 0.95(L) 1.00 - 5.00 K/mcL LAB HEMETOLOGY METHOD 02/11/2025 9:09 AM [facility] Monocytes Absolute 0.73 0.20 - 1.00 K/mcL LAB HEMETOLOGY METHOD 02/11/2025 9:09 AM EDT [facility] Eosinophils Absolute 0.12 0.00 - 0.50 K/[facility] LAB HEMETOLOGY METHOD 02/11/2025 9:09 AM EDT [facility] Basophils Absolute 0.04 0.00 - 0.20 K/[facility] LAB HEMETOLOGY METHOD 02/11/2025 9:09 AM EDT [facility] Immature Granulocytes Absolute 0.01 0.00 - 0.03 K/[facility] LAB HEMETOLOGY METHOD 02/11/2025 9:09 AM EDT [facility] Blood Venous blood specimen / Unknown Venipuncture / Unknown 02/11/2025 8:25 AM EDT 02/11/2025 9:04 AM EDT Jerman Buchanan MD LAB BLOOD ORDERABLES Final Result Performing Organization Address City/[facility]/ZIP Co de Phone Number [facility] [address] [place] [address], [place] [phone] * Magnesium (02/11/2025 8:25 AM EDT) Magnesium 1.9 1.9 - 2.6 mg/dL LAB CHEMISTRY METHOD 02/11/2025 9:26 AM EDT [facility] Blood Venous blood specimen / Unknown Venipuncture / Unknown 02/11/2025 8:25 AM EDT 02/11/2025 9:04 AM EDT Jerman Buchanan MD LAB BLOOD ORDERABLES Final Result [facility] [address] [place] [address], [place] [phone] * (ABNORMAL) Basic metabolic panel (02/11/2025 8:25 AM EDT) Sodium 141 133 - 145 mmol/L LAB CHEMISTRY METHOD 02/11/2025 10:10 AM [facility] Potassium 4.3 3.5 - 5.5 mmol/L LAB CHEMISTRY METHOD 02/11/2025 10:10 AM [facility] Chloride 112(H) 96 - 110 mmol/L LAB CHEMISTRY METHOD 02/11/2025 10:10 AM [facility] CO2 25 21 - 32 mmol/L LAB CHEMISTRY METHOD 02/11/2025 10:10 AM [facility] Anion Gap 4 3 - 11 LAB CHEMISTRY METHOD 02/11/2025 10:10 AM [facility] Glucose 93 70 - 100 mg/dL LAB CHEMISTRY METHOD 02/11/2025 10:10 AM [facility] BUN 13 5 - 25 mg/dL LAB CHEMISTRY METHOD 02/11/2025 10:10 AM [facility] Creatinine 0.67(L) 0.70 - 1.30 mg/dL LAB CHEMISTRY METHOD 02/11/2025 10:10 AM [facility] eGFR 101 >=60 mL/min/1. 73m2 LAB CHEMISTRY METHOD 02/11/2025 10:10 AM [facility] Comment:Calculation based on the Chronic Kidney Disease Epidemiology Collaboration (CKD-EPI) equation refit without adjustment for race. BUN/Creatinine Ratio 19.4 LAB CHEMISTRY METHOD 02/11/2025 10:10 AM [facility] Calcium 8.9 8.5 - 10.5 mg/dL LAB CHEMISTRY METHOD 02/11/2025 10:10 AM [facility] Blood Venous blood specimen / Unknown Venipuncture / Unknown 02/11/2025 8:25 AM EDT 02/11/2025 9:04 AM EDT us Jerman Buchanan MD LAB BLOOD ORDERABLES Final Result [facility] [address] [place] [address], from Last 3 Months Insurance [employer] - [place] MEDICARE ADVANTAGE Care Teams Scientist Electronics Relationship Specialty Start Date End Date Physician, No Pcp PCP - General 09/29/24
--- OUTSIDE RECORDS SUMMARY | 2025-04-23 17:05 | XMS_ITS | Patient Health Record ---
Author Organization [facility] Address [address] [place] [id number] Care Team Providers Care Fiber Locking Supervisor Name Role Phone Vikram MADISON, Asma Primary [...] Problem Status W/U Status Risk Notes Problem [id number] Diarrhea, unspecified type (R19.7) Active confirmed Problem [id number] Leg cramps (R25.2) Active confirmed Plan Of Treatment No Information Insurance Providers Payer Name Payer Address Payer Phone Subscriber Number Group Number Insured Name Patient Relationship to Insured Coverage Start Date Coverage End Date [facility] [address] [place] [address] [phone] [id number] IRMA STEEN Self - patient is the insured Medical (General) History Medical History History ICD Code Denies [place],DM,CVA,renal disease COPD elevated iron levels hx of leg cramps Surgical History Surgery Date(Month/Year) detached retina
== END 2025-04-23 13:52 | disposition home or self-care (01) ==
LOC: HO.BBR 13:51
PROVIDERS: PCP Internal Medicine; Visit Provider Internal Medicine
DX: Z13.89 Encounter for screening for other disorder (principal)

== ENCOUNTER 2025-05-16 12:40 | Outpatient (REF) | payer MEDICARE, MEDICAID, SELFPAY ==
--- NOTE | ~2025-05-16 | XR_ITS ---
EXAMINATION: XR CHEST CLINICAL INFORMATION: R07.9 - Chest pain, unspecified COMPARISON: June 05, 2024. TECHNIQUE: PA and lateral views FINDINGS: Hyperinflated lungs. Pulmonary reticular pattern. No consolidation, pleural effusion or pneumothorax. Cardiomediastinal silhouette size is small, unchanged. Multilevel spondylosis. Kyphotic deformity lower thoracic spine. XR/XR chest 2V IMPRESSION: COPD emphysematous type changes without acute airspace disease. Stable chest. Electronically signed by: Kodak Wang MD 05/16/2025 02:34 PM EDT
--- OUTSIDE RECORDS SUMMARY | 2025-05-16 17:15 | XMS_ITS | Clinical Summary ---
Author Organization [facility] Address [address] [place] [address] Phone Care Team Providers Care Infectious Diseases Physician Name Role Phone Physician, No Pcp Primary [...] Active Active Problems No known active problems Immunizations Immunization Administration Dates Next Due Tdap [...] on patient's age to complete this topic Insurance BLUE CROSS - [place] MEDICARE ADVANTAGE Care Teams Infectious Diseases Physician Relationship Specialty Start Date End Date Physician, No Pcp PCP - General 09/29/24
== END 2025-05-16 12:41 | disposition home or self-care (01) ==
LOC: HO.HMGCX 12:40
PROVIDERS: PCP Internal Medicine; Visit Provider Nurse Practitioner Family
DX: R07.89 Other chest pain (principal); Z79.899 Other long term (current) drug therapy
CPT/HCPCS: 71046; 99212

== ENCOUNTER 2025-05-16 12:40 | Outpatient (AMB) | payer MEDICARE, MEDICAID, SELFPAY ==
--- NOTE | 2025-05-16 13:00 | MHC.OFFWIV ---
Intake Vital Signs 05/16/25 13:01 Height 5 ft 11 in Weight 160 lb BMI 22.3 BP 130/72 Blood Pressure Location Lt brachial Position Sitting Respiration 16 Pulse 73 Pulse Source Pulse Oximeter Temp 98.2 F Temp Source Oral Pulse Oximetry (%) 98 Oxygen Delivery Method Room Air Intake Visit Reasons: EP Chest pain Intake Note: pt presents with chest pain beginning 3 wks ago, pain begins approx 15 min after laying down and wakes him up in the middle of the night- he walks around with passing gas and burping and pressure/pain reliefs Patient Tobacco Use Status: Former Tobacco user Allergies No Known Drug Allergies Allergy (Unknown, Verified 05/16/25 13:03) none DRYER SHEETS Allergy (Intermediate, Uncoded 04/01/25 08:52) HIVES Medication List - Last Reconciled 05/16/25 by Nanette Gage NP cyanocobalamin (vitamin B-12) (Vitamin B-12) 1,000 mcg PO DAILY famotidine 20 mg PO BEDTIME finasteride 5 mg PO .MWF 90 days fluticasone propion-salmeterol 250-50 mcg/dose (Wixela Inhub) 1 inh inhalation BID 30 days naproxen mg PO Do you need a note to return to daycare/school/sports/work: No HPI HPI Comments History of Present Illness Details 70-year-old male presents to the walk-in clinic with complaints of chest pain for the past 3 weeks. He describes the pain as sharp, located at the left lower sternal area, and notes that it typically occurs when lying down at bedtime. The pain sometimes awakens him at night and persists until mid-morning, after which it subsides. The patient reports that walking around, passing gas, or burping occasionally relieves the discomfort. He denies any recent dietary changes or new medications. He also denies shortness of breath, wheezing, palpitations, headaches, or dizziness. Past medical history is significant for COPD, for which he is currently using Wixela. [facility] Medical History (Updated 05/16/25 @ 14:12 by Nanette Gage NP) Chest pain COPD (chronic obstructive pulmonary disease) Encounter for removal of sutures Back pain of thoracolumbar region Colon cancer screening Medicare annual wellness visit, initial Skin cancer screening Blood pressure check Hereditary hemochromatosis Surgical History H/O eye surgery Hx of tonsillectomy H/O: vasectomy No pertinent past surgical history Social History Household Members: Significant Other Housing: Other Housing Other:: trailor Are you a primary critical care registered nurse to a significant other at home: No Alcohol intake: never Patient Tobacco Use Status: Former Tobacco user Tobacco use type: Cigarette e-Cigarette/Vaping Use: Never Used service: No Current occupational status: retired Cognitive needs: No Hearing needs: Yes Vision needs: Yes Review of Systems Const All systems reviewed & are unremarkable except as noted in HPI and below Physical Exam Vital Signs: Last Vital Signs Temp 98.2 F 05/16/25 13:01 Pulse 73 05/16/25 13:01 Resp 16 05/16/25 13:01 BP 130/72 05/16/25 13:01 Pulse Ox 98 05/16/25 13:01 Oxygen Delivery Method Room Air 05/16/25 13:01 BMI result Body Mass Index 22.3 Const General: no acute distress Nutritional Appearance: well nourished Orientation/consciousness: patient oriented x3 Chest Chest palpation & inspection: tenderness (Left sided chest wall tenderness. ) Breast/axilla palpation: no axillary lymphadenopathy Resp Effort & Inspection: normal respiratory effort and able to speak in complete sentences Auscultation: clear to auscultation bilaterally, no crackles, no rales, no rhonchi and no wheezes Cardio Rate: regular rate Heart sounds: S1 normal heart sound present and S2 normal heart sound present GI Palpation (GI): Soft to palpation, not firm, nontender, no guarding, not rigid and No hepatosplenomegaly present Auscultation: normal bowel sounds Neuro General: patient oriented x3 and gait normal Psych Speech and movement: Normal speech and movement present Assessment & Plan Assessment & Plan (1) Chest pain: Code(s): R07.9 - Chest pain, unspecified Qualifiers: Chest pain type: unspecified Qualified Code(s): R07.9 - Chest pain, unspecified Plan: Ordered Chest Xray. Atypical Chest Pain ? Sharp, positional, and gas-relieved pain suggests a possible gastroesophageal or musculoskeletal origin rather than cardiac. Pain occurs when lying down and improves with movement and burping, consistent with GERD or reflux-related esophageal spasm. Cardiac cause less likely given absence of exertional symptoms, palpitations, radiation, or associated SOB, but cannot be entirely ruled out. Gastroesophageal Reflux Disease (GERD) ? Likely contributing to nocturnal chest discomfort. Ordered Famotidine before bedtime. Avoid consuming heavy meal before bedtime. COPD (Chronic Obstructive Pulmonary Disease) ? Stable on current inhaler (Wixela). No acute respiratory symptoms. Monitor for new or worsening symptoms (e.g., exertional chest pain, SOB, diaphoresis, radiation to jaw/arm); go to ED if these occur. Orders: Orders XR chest 2V Today R07.9 - Chest pain, unspecified Medications: New famotidine 20 mg PO BEDTIME 20 tabs 0RF R07.9 - Chest pain, unspecified Coding Level of Care Code Est Pt Level 4 (17589) Diagnoses Chest pain, unspecified type R07.9 Chest pain type: unspecified Time Spent (min) 20
[2025-05-16 13:01] VITALS: BP 130/72; PULSE 73; RESP 16; TEMP 36.8; O2SAT 98; BMI 22.3
--- OUTSIDE RECORDS SUMMARY | 2025-05-16 15:30 | XMS_ITS | Patient Health Record ---
Author Organization [facility] Address [address] [place] [phone] Care Team Providers Care Steak Tenderizer Machine Name Role Phone Vikram MADISON, Asma Primary [...] Problem Status W/U Status Risk Notes Problem Diarrhea ([id number]) Diarrhea, unspecified type (R19.7) Active confirmed Problem Cramp in lower limb ([id number]) Leg cramps (R25.2) Active confirmed Plan Of Treatment No Information Insurance Providers Payer Name Payer Address Payer Phone Subscriber Number Group Number Insured Name Patient Relationship to Insured Coverage Start Date Coverage End Date [facility] [address] [place] [address] [id number] IRMA STEEN Self - patient is the insured Medical (General) History Medical History History ICD Code Denies [place],DM,CVA,renal disease COPD elevated iron levels hx of leg cramps Surgical History Surgery Date(Month/Year) detached retina
== END 2025-05-16 14:44 | disposition home or self-care (01) ==
PROVIDERS: PCP Internal Medicine; Visit Provider Nurse Practitioner Family
DX: R07.9 Chest pain, unspecified (principal)

== ENCOUNTER → 2025-05-16 14:14 | Outpatient (BNV) | payer MEDICARE, MEDICAID, SELFPAY | PROVIDERS: PCP Internal Medicine; Visit Provider Radiology Diagnostic Radiology | DX: J43.9 Emphysema, unspecified (principal) | CPT/HCPCS: 71046 ==

== ENCOUNTER 2025-06-05 09:15 | Outpatient (AMB) | payer MEDICARE, MEDICAID, SELFPAY ==
[2025-06-05 09:40] VITALS: BP 132/74; PULSE 56; O2SAT 99; BMI 22.9
--- NOTE | 2025-06-05 09:40 | A.OFFVIS_ITS ---
Vital Signs 06/05/25 09:40 Height 5 ft 11 in Weight 164 lb 3.91 oz BMI 22.9 BP 132/74 Blood Pressure Location Lt brachial Position Sitting Pulse 56 Pulse Source Pulse Oximeter Pulse Oximetry (%) 99 Oxygen Delivery Method Room Air Intake Visit Reasons: COPD Intake Note: pt is here for follow up and states his breathing is good, only short of breath with exertion and he rests and it comes back. 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 Required: No Element Winding Machine Tender: Element Winding Machine Tender offered & declined Allergies No Known Drug Allergies Allergy (Unknown, Verified 06/05/25 10:10) none DRYER SHEETS Allergy (Intermediate, Uncoded 06/05/25 10:10) HIVES Medication List - Last Reconciled 06/05/25 by Kyle Wilder MD cyanocobalamin (vitamin B-12) (Vitamin B-12) 1,000 mcg PO DAILY famotidine 20 mg PO BEDTIME finasteride 5 mg PO .MWF 90 days fluticasone propion-salmeterol 250-50 mcg/dose (Wixela Inhub) 1 inh inhalation BID 30 days naproxen mg PO Do you need a note to return to daycare/school/sports/work: No HPI HPI COPD: Details: Erick is 70 years old very pleasant gentleman of a thin build who is followed up for COPD. His symptoms have been controlled and, he has had no acute exacerbation. In the last 6 months He has usual shortness of breath on exertion like when he climbs stairs or walks up [place], but. No issues at rest He is using Wixela mostly once a day and increases to twice a day if symptoms are any worse. Denies cough or wheezing attacks. [facility] Medical History Chest pain COPD (chronic obstructive pulmonary disease) Encounter for removal of sutures Back pain of thoracolumbar region Colon cancer screening Medicare annual wellness visit, initial Skin cancer screening Blood pressure check Hereditary hemochromatosis Surgical History H/O eye surgery Hx of tonsillectomy H/O: vasectomy No pertinent past surgical history Social History Household Members: Significant Other Housing: Other Housing Other:: trailor Are you a primary auto care center manager to a significant other at home: No Alcohol intake: never Patient Tobacco Use Status: Former Tobacco user Tobacco use type: Cigarette e-Cigarette/Vaping Use: Never Used service: No Current occupational status: retired Cognitive needs: No Hearing needs: Yes Vision needs: Yes Review of Systems Const All systems reviewed & are unremarkable except as noted in HPI and below Eyes Reports no additional complaints ENT Reports no additional complaints Card Denies chest pain, Denies irregular heart rhythm and Denies leg edema Resp Reports as per HPI GI Reports no additional complaints Reports other (Being treated for BPH) Musc Reports no additional complaints Skin/Breast Reports system reviewed and no additional complaints, except as documented Neuro Reports no additional complaints Psych Reports no additional complaints Physical Exam Vital Signs: Last Vital Signs Pulse 56 06/05/25 09:40 BP 132/74 06/05/25 09:40 Pulse Ox 99 06/05/25 09:40 Oxygen Delivery Method Room Air 06/05/25 09:40 BMI result Body Mass Index 22.9 Const General: healthy appearing (He is of a thin build, but looks physically active.) , comfortable, no acute distress, alert and awake Orientation/consciousness: patient oriented x3 HEENT Head: Yes normal to inspection General nose exam: No nasal polyps present and No nasal discharge present Face and sinus: Yes sinuses nontender Mouth: oropharynx normal Throat: Yes posterior oropharynx normal Eyes General: appearance normal, both eyes and all related structures Neck Neck: Yes normal visual inspection, Yes no lymphadenopathy, Yes trachea midline and Yes JVD (Prominent right jugular vein when he is talking) Thyroid: Thyroid normal Chest Chest palpation & inspection: normal inspection of the chest, normal palpation of entire chest wall and no tenderness Resp Other: Percussion note hyper-resonant,. Breath sounds are distant on both sides with prolonged expiratory phase. No definite wheezes or crepitations heard. Cardio Palpation: normal PMI Rate: regular rate Rhythm: regular rhythm Heart sounds: no gallops and no murmurs Peripheral pulses: Peripheral pulses 2+ throughout GI Palpation (GI): Soft to palpation, nontender, No hepatosplenomegaly present and no masses Auscultation: normal bowel sounds Back/Spine/Pelvis Thoracic/Lumbar Spine: thoracic and lumbar spine normal to inspection, thoraco- lumbar ROM limited and other (There is muscular tenderness, in right thoracolumbar area, ) Skin General skin exam: no rashes or lesions noted Neuro General: patient oriented x3 and no focal motor deficits Cranial nerves: Yes CN's II-XII intact bilaterally Extrem General: Yes normal to inspection, Yes no clubbing, cyanosis or edema and Yes no calf tenderness Psych Appearance: grossly normal and well kempt Speech and movement: Normal speech and movement present Assessment & Plan Assessment & Plan (1) COPD, severe: Comment: Chronic obstructive pulmonary disease, remains well controlled with his current regimen. He is very careful and has not gotten any respiratory infection in the past 1 year. Code(s): J44.9 - Chronic obstructive pulmonary disease, unspecified Category: Medical Plan: Use Wixela 250-51 inhalation b.i.d., but if symptoms are minimal and controlled then once a day is okay. Albuterol 2 puffs Q 6 hours only p.r.n. Coding Level of Care Code Est Pt Level 3 (93219) Diagnoses COPD, severe J44.9
--- OUTSIDE RECORDS SUMMARY | 2025-06-05 17:11 | XMS_ITS | Patient Health Record ---
Author Organization [facility] Address [address] [place] [phone] Care Team Providers Care Adzing And Boring Machine Helper Name Role Phone Vikram MADISON, Asma Primary Care Provider Iron Alas Jr Unavailable Reason For Referral No Information Medications Medication SIG (Take, Route, Frequency, Duration) Notes Start Date End Date Status Spiriva Respimat Act sangita Aspir-81 81 MG Tablet Delayed Release 1 tablet Orally Once a day Active Vitamin D3 2000 UNIT Capsule 1 capsule Orally Once a day Active Social History Tobacco Use: Social History Observation Description Date Details (start date - stop date) Former Smoker NA - NA Social History Drugs/Alcohol: Social Info Question Answer Notes Alcohol Screen Did you have a drink containing alcohol in the past year? No Points 0 Interpretation Negative Tobacco Use: Social Info Question Answer Notes Tobacco Use/Smoking Patient is a former smoker How long has it been since you last smoked? 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 Problems Problem Type SNOMED Code ICD Code Onset Dates Problem Status W/U Status Risk Notes Problem Diarrhea ([id number]) Diarrhea, unspecified type (R19.7) Active confirmed Problem Cramp in lower limb (731100059) Leg cramps (R25.2) Active confirmed Plan Of Treatment No Information Insurance Providers Payer Name Payer Address Payer Phone Subscriber Number Group Number Insured Name Patient Relationship to Insured Coverage Start Date Coverage End Date [facility] [address] [place] [phone] [id number] IRMA STEEN Self - patient is the insured Medical (General) History Medical History History ICD Code Denies [place],DM,CVA,renal disease COPD elevated iron levels hx of leg cramps Surgical History Surgery Date(Month/Year) detached retina
--- OUTSIDE RECORDS SUMMARY | 2025-06-05 17:11 | XMS_ITS | Clinical Summary ---
Author Organization [facility] Address [address] [place] [address] Phone Care Team Providers Care Ceo & Co Founder Name Role Phone Physician, No Pcp Primary [...] [place] - [place] Care Teams Ceo & Co Founder Relationship Specialty Start Date End Date Physician, No Pcp PCP - General 09/29/24
== END 2025-06-05 10:13 | disposition home or self-care (01) ==
LOC: HO.HPS 09:16
PROVIDERS: PCP Internal Medicine; Visit Provider Internal Medicine
DX: J44.9 Chronic obstructive pulmonary disease, unspecified (principal)
CPT/HCPCS: 99213

== ENCOUNTER → 2025-06-05 09:15 | Outpatient (BNVA) | payer MEDICARE, MEDICAID, SELFPAY | PROVIDERS: PCP Internal Medicine; Visit Provider Internal Medicine | DX: J44.9 Chronic obstructive pulmonary disease, unspecified (principal) | CPT/HCPCS: 99212 ==